=== PATIENT | male | born 1945 | race Hispanic/Latino ===

== ENCOUNTER 2018-01-06 09:32 | Emergency (ER) | payer OTHER ==
--- NOTE | 2018-01-06 10:34 | EDPHYS ---
Physician Documentation [facility] Name: Bryan Nance Age: 72 yrs Sex: Male : 1945 Arrival Date: 01/06/2018 Time: 09:38 Bed 12 Private MD: Raman Shetty T ED Physician Kevon Walker HPI: 01/06 10:30 This 72 yrs old Male presents to ER via Ambulatory with complaints of Ear rn Pain, Dizziness. 10:30 The patient presents with pain, that is chronic. The complaints affect the right ear rn and left ear. Onset: The symptoms/episode began/occurred 2 month(s) ago. Modifying factors: The symptoms are alleviated by nothing, the symptoms are aggravated by nothing. Severity of symptoms: At their worst the symptoms were moderate in the emergency department the symptoms are unchanged. The patient has experienced similar episodes in the past. Reports 2 months of bilateral ear pain, no drainage, given drops with some improvement 2months ago and now back, wears hearing aids, no trauma, no fever. . Historical: - Allergies: 09:45 No Known Allergies; lk1 - PMHx: 09:45 Atrial Fib; CHF; Gout; High Cholesterol; Hypertension; lk1 - PSHx: 09:45 CABG; Appendectomy; Hernia repair; lk1 - Immunization history:: Adult Immunizations up to date. - Social history:: Smoking status: Patient/guardian denies using tobacco. - Family history:: not pertinent. - Hospitalizations: : No recent hospitalization is reported. ROS: 10:30 Constitutional: Negative for fever, chills, and weight loss, Eyes: Negative for injury, rn pain, redness, and discharge, ENT: Negative for injury Neck: Negative for injury, pain, and swelling, Skin: Negative for injury, rash, and discoloration, Neuro: Negative for headache, weakness, numbness, tingling, and seizure. Exam: 10:30 Constitutional: This is a well developed, well nourished patient who is awake, alert, rn and in no acute distress. Head/Face: Normocephalic, atraumatic. Eyes: Pupils equal round and reactive to light, extra-ocular motions intact. Lids and lashes normal. Conjunctiva and sclera are non-icteric and not injected. Cornea within normal limits. Periorbital areas with no swelling, redness, or edema. ENT: Bilateral TM with mild external meatus swelling, no drainage, no evidence of perforation, + mild skin irritation with healed pustular lesions left external auditory canal. Vital Signs: 09:46 BP 125 / 82; Pulse 103; Resp 16; Temp 97.0(TE); Pulse Ox 97% on R/A; Weight 96.62 kg lk1 (R); Height 5 ft. 6 in. (167.64 cm) (R); Pain 0/10; 09:46 Body Mass Index 34.38 (96.62 kg, 167.64 cm) lk1 MDM: 10:11 Patient medically screened. rn 10:30 Differential diagnosis: otitis media, otitis externa, acute otalgia, cerumen impaction. rn Data reviewed: vital signs, nurses notes, and as a result, I will discharge patient. Counseling: I had a detailed discussion with the patient and/or guardian regarding: the historical points, exam findings, and any diagnostic results supporting the discharge/admit diagnosis, the need for outpatient follow up, to return to the emergency department if symptoms worsen or persist or if there are any questions or concerns that arise at home. Special discussion: I discussed with the patient/guardian in detail that at this point there is no indication for admission to the hospital. It is understood, however, that if the symptoms persist or worsen the patient needs to return immediately for re-evaluation. Based on the history and exam findings, there is no indication for further emergent testing or inpatient evaluation. I discussed with the patient/guardian the need to see the ENT specialist for further evaluation of the symptoms. Administered Medications: No medications were administered Disposition: 01/06/18 10:33 Discharged to Home. Impression: Otalgia, bilateral. - Condition is Stable. - Discharge Instructions: Earache. - Prescriptions for Augmentin 875- 125 mg Oral Tablet - take 1 tablet by ORAL route every 12 hours for 10 days; 20 tablet. Ciprodex 0.3- 0.1 % Otic Drops, Suspension - instill 4 drop by OTIC route every 12 hours for 7 days , for ears ONLY; 1 Container. - Medication Reconciliation Form, Thank You Letter, Antibiotic Education, Prescription Opioid Use form. - Follow up: Kayleigh Ely MD; When: As needed; Reason: Recheck today's complaints, Re-evaluation by your physician. - Problem is an ongoing problem. - Symptoms are unchanged. Signatures: Norma Reynolds, Kevon Bishop RN, MD MD rn Kluge, Leah, RN RN lk1
--- NOTE | 2018-01-06 10:34 | ER ---
Nurse's Notes [facility] Name: Bryan Nance Age: 72 yrs Sex: Male : 1945 Arrival Date: 01/06/2018 Time: 09:38 Bed 12 Private MD: Raman Shetty T Diagnosis: Otalgia, bilateral Presentation: 01/06 09:44 Presenting complaint: Patient states: "I am having itching in my ears for about a lk1 month. [facility] solvent that didn't work.". Transition of care: patient was not received from another setting of care. Onset of symptoms was December 05, 2017. Care prior to arrival: None. 09:44 Method Of Arrival: Ambulatory lk1 09:44 Acuity: CRICKET 4 lk1 09:46 Note Patient reports 3 round sore spots on his leg. lk1 Triage Assessment: 09:46 General: Appears in no apparent distress. Behavior is calm, cooperative, appropriate lk1 for age. Pain: Denies pain. EENT: Reports itching in ears. Historical: - Allergies: 09:45 No Known Allergies; lk1 - PMHx: 09:45 Atrial Fib; CHF; Gout; High Cholesterol; Hypertension; lk1 - PSHx: 09:45 CABG; Appendectomy; Hernia repair; lk1 - Immunization history:: Adult Immunizations up to date. - Social history:: Smoking status: Patient/guardian denies using tobacco. - Family history:: not pertinent. - Hospitalizations: : No recent hospitalization is reported. Screenin:23 Abuse screen: Denies threats or abuse. Denies injuries from another. Nutritional iw screening: No deficits noted. Tuberculosis screening: No symptoms or risk factors identified. Fall Risk None identified. Assessment: 10:22 General: Appears in no apparent distress. Behavior is calm, cooperative. Neuro: Level iw of Consciousness is awake, alert, obeys commands, Oriented to person, place, time, situation, Moves all extremities. Full function. Cardiovascular: Patient's skin is warm and dry. Respiratory: Respiratory effort is even, unlabored, Respiratory pattern is regular, symmetrical. Derm: Skin is normal. Musculoskeletal: Range of motion: intact in all extremities. Vital Signs: 09:46 BP 125 / 82; Pulse 103; Resp 16; Temp 97.0(TE); Pulse Ox 97% on R/A; Weight 96.62 kg lk1 (R); Height 5 ft. 6 in. (167.64 cm) (R); Pain 0/10; 09:46 Body Mass Index 34.38 (96.62 kg, 167.64 cm) lk1 ED Course: 09:38 Patient arrived in ED. as 09:38 Raman Shetty MD is Private Physician. as 09:45 Triage completed. lk1 09:48 Arm band placed on left wrist. lk1 10:11 Kevon Walker MD is Attending Physician. rn 10:22 Norma Reynolds, RN is Primary Nurse. iw 10:23 No provider procedures requiring assistance completed. Patient did not have IV access iw during this emergency room visit. 10:25 Patient has correct armband on for positive identification. iw 10:33 Kayleigh Ely MD is Referral Physician. rn Administered Medications: No medications were administered Outcome: 10:33 Discharge ordered by MD. rn 10:54 Discharged to home ambulatory. iw 10:54 Condition: good 10:54 Discharge instructions given to patient, Instructed on discharge instructions, follow up and referral plans. medication usage, Demonstrated understanding of instructions, follow-up care, medications, Prescriptions given X 2. 10:55 Patient left the ED. iw Signatures: Hortencia Kearney as Norma Reynolds, RN RN iw Kevon Walker MD MD rn Kluge, Leah, RN RN lk1
[2018-01-06 11:00] VITALS: BP 125/82; TEMP 97; O2SAT 97
== END 2018-01-06 10:55 | disposition home or self-care (01) ==
LOC: ER 09:32
DX: H92.03 Otalgia, bilateral (principal); I10 Essential (primary) hypertension; Z95.1 Presence of aortocoronary bypass graft
CPT/HCPCS: 99282

== ENCOUNTER 2020-10-19 07:57 | Day surgery (SDC) | payer OTHER ==
[2020-10-13 10:02] LABS: Absolute Lymphocytes (CBC) 1.8 K/uL (0.7-4.9); Basophils % 0.8 % (0-1.3); Lymphocytes % 28.8 % (15.3-44.8); MPV 9.3 fL (7.6-11.3); RBC Red Blood Cell Count 4.89 M/uL (4.33-5.43)
[2020-10-13 10:12] LABS: Potassium 4.1 mmol/L (3.5-5.1)
--- NOTE | 2020-10-13 13:16 | RAD REPORT ---
EXAM DESCRIPTION: RAD - Chest Pa And Lat (2 Views) - 10/13/2020 12:59 pm CLINICAL HISTORY: pre op Chest pain. COMPARISON: Chest Pa And Lat (2 Views) dated 07/14/2017; Chest Single View dated 07/09/2017; Chest P a And Lat (2 Views) dated 06/09/2017; Chest Single View dated 09/25/2016 FINDINGS: The lungs are clear. The heart is moderately enlarged with changes of a prior CABG noted. No displaced fractures.
[2020-10-19] MEDS ORDERED: NA CHLORIDE 0.9% 1,000 ML ONE (08:17)
[2020-10-19] MEDS ORDERED: CEFAZOLIN/SWI 1gm 1 GM/10 ML SYR ONE (08:17)
[2020-10-19 08:24] LABS: Protime INR 1.1
--- OUTSIDE RECORDS SUMMARY | 2020-10-19 08:32 | XMS REPORT | Clinical Summary ---
:1945 Author Organization [facility] Address [address] [place] [address] Care Team Providers Name Role Phone Pcp, Neva MD Primary Care Provider Unavailable Allergies No Known Allergies Medications Medication Sig Dispensed Refills Start Date End Date Status potassium Take 20 mEq 0 Active chloride by mouth 2 (KLOR-CON) 20 mEq (two) times packet daily. allopurinoL Take 300 mg 0 Active (ZYLOPRIM) 300 MG by mouth tablet daily. apixaban Take 5 mg by 0 Active (Eliquis) 5 mg mouth 2 (two) Tab tablet times daily. metoprolol Take 50 mg by 0 Activ e succinate mouth 2 (two) (TOPROL-XL) 50 MG times daily. 24 hr tablet furosemide Take 40 mg by 0 Activ e (LASIX) 40 MG mouth 2 (two) tablet times daily. simvastatin Take 10 mg by 0 Acti ve (ZOCOR) 10 MG mouth tablet nightly. aspirin 81 MG EC Take 81 mg by 0 Active tablet mouth daily. lisinopriL Take 2 30 tablet 0 10/06/2020 Active (PRINIVIL,ZESTRIL tablets (40 ) 20 MG tablet mg total) by mouth daily. lisinopriL Take 20 mg by 0 Disco ntinued (PRINIVIL,ZESTRIL mouth daily. 1 (Reorder) ) 20 MG tablet Active Problems Problem Noted Date Abnormal nuclear stress test 10/06/2020 Encounters Date Type Specialty Care Team Description 10/06/2020 Surgery Gavin Franklin CATH & CORONARY ANGIOS MD SEEMA 10/06/2020 Hospital Encounter Gavin Franklin III, MD 10/03/2020 Office Visit Cardiology Gavin Franklin-op MD Yolie vasquez III, Thien N, RN 10/03/2020 Travel 09/12/2020 Office Visit Cardiology Gavin Franklin Pre-op MD Jeovanny vasquez III, Taiwo, RN 09/12/2020 Travel after 10/19/2019 Family History Medical History Relation Name Comments Diabetes Brother Hypertension Mother Diabetes Son Relation Name Status Comments Brother Mother Son Social History Tobacco Use Types Packs/Day Years Used Date Never Smoker Smokeless Tobacco: Never Used Alcohol Use Drinks/Week oz/Week Comments Not Currently Sex Assigned at Date Recorded Not on file Last Filed Vital Signs Vital Sign Reading Time Taken Comments Blood Pressure 111/55 10/06/2020 10:15 AM COMPONENT DESIGN ENGINEER Pulse 71 10/06/2020 10:15 AM COMPONENT DESIGN ENGINEER Temperature 36.8 C (98.2 F) 10/06/2020 5:48 AM COMPONENT DESIGN ENGINEER Respiratory Rate 18 10/06/2020 10:15 AM COMPONENT DESIGN ENGINEER Oxygen Saturation 99% 10/06/2020 10:15 AM COMPONENT DESIGN ENGINEER Inhaled Oxygen Concentration - - Weight 97 kg (213 lb 14.4 oz) 10/06/2020 5:48 AM COMPONENT DESIGN ENGINEER Height 167.6 cm (5' 6") 10/06/2020 5:48 AM COMPONENT DESIGN ENGINEER Body Mass Index 34.52 10/06/2020 5:48 AM COMPONENT DESIGN ENGINEER Plan of Treatment Health Maintenance Due Date Last Done Comments COLON CANCER SCREENING COLONOSCOPY 1945 PNEUMOCOCCAL 65+ YRS (1 of 1 - [id number]) 2010 MEDICARE ANNUAL WELLNESS (YEAR 2 or FIRST YEAR if no 09/24/2014 IPPE) INFLUENZA VACCINE (#1) 2020 DEPRESSION SCREENING (12+) Completed 10/03/2020 Procedures Procedure Name Priority Date/Time Associated Diagnosis Comme nts L CATH & CORONARY 10/06/2020 7:02 AM Abnormal echocar diogram ANGIOS COMP[employer]ENT DESIGN ENGINEER Case Notes (1)CASE 6TOP REPORT OF PROCEDURE - 10/06/2020 Result s for this ENDOSCOPY SCAN procedure are in the results section . CARDIAC CATH REPORT - SCAN 10/06/2020 R esults for this procedure are i n the results section . PROTHROMBIN TIME/INR Routine 10/03/2020 7:45 AM COMPONENT DESIGN ENGINEER Results for this procedure are i n the results section . SARS-COV2/RT-PCR ([facility] & STAT 10/03/2020 7:31 AM COMPONENT DESIGN ENGINEER Results for this REF LABS) procedure are i n the results section . CBC W/PLT COUNT & AUTO CHARISSE 09/12/2020 7:57 AM COMPONENT DESIGN ENGINEER Results for this DIFFERENTIAL procedure are i n the results section . CBC W/PLT COUNT & AUTO CHARISSE 09/12/2020 7:57 AM COMPONENT DESIGN ENGINEER Results for this DIFFERENTIAL procedure are i n the results section . BASIC METABOLIC PANEL (7) CHARISSE 09/12/2020 7:57 AM COMPONENT DESIGN ENGINEER Results for this procedure are i n the results section . SARS-COV2/RT-PCR ([facility] & STAT 09/12/2020 7:44 AM COMPONENT DESIGN ENGINEER Results for this REF LABS) procedure are i n the results section . after 10/19/2019 Results EKG-SCANNED (10/06/2020) Narrative Performed At This result has an attachment that is no t available. Ordered by an unspecified provider. CARDIAC CATH REPORT - SCAN (10/06/2020) Narrative Performed At This result has an attachment that is no t available. Ordered by an unspecified provider. Prothrombin time/INR (10/03/2020 7:45 AM COMPONENT DESIGN ENGINEER) Pathologist Sig nature Protime 17.1 (H) 11.9 - 14.2 seconds [facility] INR 1.45 <=5.90 [facility] Specimen Blood Narrative Performed At Effective 02/18/2019: PT Reference Range [facility] Change New: 11.9-14.2 Previous: 11.7-14.7 RECOMMENDED COUMADIN/WARFARIN INR THERAPY RANGES STANDARD DOSE: 2.0-3.0 Includes: PROPHYLAXIS for venous thrombosis, systemic embolization; TREATMENT for venous thrombosis and/or pulmonary embolus. HIGH RISK: Target INR is 2.5-3.5 for patients wiht mechanical heart valves. Performing Organization Address City/State/Zipcode Phone Number [facility] [address] [place] [address] CENTER SARS-CoV2/RT-PCR (Asymptomatic ONLY) (10/03/2020 7:31 AM COMPONENT DESIGN ENGINEER)Only the most recent of2 resultswithin the time period is included. SARS-COV2/RT-PCR Negative Not Detected, JOCELINE VERGARA Negative, See [facility] external report CENTER for linked test SARS-COV-2 [facility] MARLEN VERGARA PERFORMING LAB [facility] Specimen Other - Nasopharyngeal wall structure (b dayana structure) Narrative Performed At Negative result for this test determines that JOCELINE GODWINKayden [facility] SARS-CoV-2 RNA was not present in the specimen above the Limit of Detection (LOD). However, Negative results do not preclude SARS-CoV-2 infection and should not be used as the sole basis for treatment or patient management decisions. Negative results must be combined with clinical observations, patient history, and epidemiological information. A false negative result may occur if a specimen is improperly collected, transported or handled. A false negative result should be considered if patient's recent exposures or clinical presentation indicate that COVID-19 (SARS-CoV-2) is likely and diagnostic tests for other causes of illness are negative. Re-testing should be considered in cases of suspected false negatives. The limit of detection for this assay is 800 copies/mL. This SARS CoV-2 test is a real-time RT-PCR test intended for the qualitative detection of nucleic acid from SARS-CoV-2 in a nasopharyngeal swab specimen collected from individuals suspected of COVID-19 by their healthcare provider. This test has not been Food and Drug Administration (FDA) cleared or approved. This is a modified version of an approved Emergency Use Authorization (EUA) and is in the process of review by the FDA. Once authorized by the FDA, the issued EUA will be effective until the declaration that circumstances exist justifying the authorization of the emergency use of in vitro diagnostic tests for detection and/or diagnosis of COVID-19 is terminated under Section 564(b)(2) of the Act or the EUA is revoked under Section 564(g) of the Act. Fact Sheet for Healthcare Providers: https://www.Instapagar.Apricot Trees/sites/default/files/pro duct/documents/Fact_Sheet_HC_Providers_Lyra_SA RS-CoV-2.pdf Fact Sheet for Healthcare Patients: https://www.Instapagar.Apricot Trees/sites/default/files/pro duct/documents/Fact_Sheet_Patients_Lyra_SARS-C oV-2.pdf Performing Laboratory: [facility] [address] [address] Performing Organization Address City/State/Zipcode Phone Number [facility] [address] [place] [address] CENTER CBC with platelet count + automated diff (09/12/2020 7:57 AM COMPONENT DESIGN ENGINEER) Pathologist Sig nature WBC 6.1 3.5 - 10.5 [facility] RBC 4.69 4.63 - 6.08 [facility] M/[facility] Hemoglobin 14.9 13.7 - 17.5 [facility]/DL [facility] Hematocrit 44.9 40.1 - 51.0 % [facility] MCV 95.7 (H) 79.0 - 92.2 fL [facility] MCH 31.8 25.7 - 32.2 pg [facility] MCHC 33.2 32.3 - 36.5 [facility] RDW 14.1 11.6 - 14.4 % [facility] Platelets 160 150 - 450 K/CU [facility] MPV 10.6 9.4 - 12.4 fL [facility] nRBC 0 0 - 0 /100 WBC [facility] % Neutros 58 % [facility] % Lymphs 30 % [facility] % Monos 7 % [facility] % Eos 3 % [facility] % Baso 1 % [facility] # Neutros 3.57 1.78 - 5.38 [facility] # Lymphs 1.84 1.32 - 3.57 [facility] # Monos 0.45 0.30 - 0.82 [facility] # Eos 0.20 0.04 - 0.54 [facility]/L [facility] # Baso 0.04 0.01 - 0.08 [facility] Immature 0 0 - 1 % [facility] Granulocytes-Relative [facility] Specimen Blood Performing Organization Address City/State/Zipcode Phone Number [facility] [address] [place] [address] [place] Basic Metabolic Panel (09/12/2020 7:57 AM COMPONENT DESIGN ENGINEER) Sodium 137 136 - 145 meq/L [facility] Potassium 4.1 3.5 - 5.1 meq/L [facility] Chloride 101 98 - 107 meq/L [facility] CO2 25 22 - 29 meq/L [facility] BUN 22 (H) 7 - 21 mg/dL [facility] Creatinine 0.92 0.57 - 1.25 [facility] mg/dL [facility] Glucose 133 (H) 70 - 105 mg/dL [facility] Calcium 8.7 8.4 - 10.2 [facility] mg/dL [facility] EGFR 80Comment: ESTIMATED mL/min/1.73 sq [facility] GFR IS NOT m [facility] ACCURATE CENTER CREATININE CLEARANCE IN PREDICTING GLOMERULAR FILTRATION RATE. ESTIMATED GFR IS NOT APPLICABLE FOR DIALYSIS PATIENTS. Specimen Blood Narrative Performed At [employer] ID - [place] Performing Organization Address City/State/Zipcode Phone Number [facility] [address] [place] [address] CENTER after 10/19/2019 Insurance Payer Benefit Plan / Subscriber ID Effective Dates Phone Addre ss Type Group AET[employer] - A[employer]NA MEDICARE [id number]-Mateusz [phone] MEDICARE MGD HMO POS PPO t [id number] [place] [id number] Advance Directives For more information, please contact: [phone] Code Status Date Activated Date Inactivated Comments Full Code 10/06/2020 5:59 AM 10/06/2020 12:40 PM This code status was determined by: Patient
--- OUTSIDE RECORDS SUMMARY | 2020-10-19 08:32 | XMS REPORT | Continuity of Care Document ---
:1945 Author Organization [facility] t Address [address] [place] [address] [address]. [address] [place] [address] Care Team Providers Name Role Phone Pcp MD, Neva Primary Care Physician Unavailable Gavin Franklin MD Attending Clinician Yolie MONTES, N Attending Clinician Unavailable KIM FRANKLIN Attending Clinician Unavailable Jeovanny MONTES Attending Clinician Unavailable Benjy Sheppard Attending Clinician Payers Payer Name Policy Type Policy Number Effective Date Expiration Date S ian AETNA - MEDICARE [id number] 2013 [facility] MGD CAREAETNA 00:00:00 - Medical MEDICARE HMO POS Center [id number] [address], [place] [address] Problems Condition Condition Condition Status Onset Resolution Last Treating Co mments Source Name Details Category Date Date Treatment Clinician Date Abnormal Abnormal Disease Active [facility] nuclear 1-14 ProPerforma - stress stress 00:00: Medical test test 00 Center Carpal Problem Active 2020-07-22 Memor ia tunnel 01:18:22 l syndrome Carpal Prasanna n (disorder) tunnel syndrome (disorder) Active Problem 07/22/2020 [facility] Allergies, Adverse Reactions, Alerts This patient has no known allergies or adverse reactions. Family History Family Member Diagnosis Comments Start Date Stop Date Source Natural brother Diabetes [place] [facility] Natural mother Hypertension [facility] Natural son Diabetes [facility] Social History Social Habit Start Date Stop Date Quantity Comments Source Sex Assigned At JOCELINE [place] [facility] Tobacco use and 2020-10-10 2020-10-[address] [facility] St Tyra duenass - exposure 00:00:00 00:00:00 [facility] Alcohol intake 2020-10-10 2020-10-10 Ex-drinker JOCELINE [place] [facility] - 00:00:00 00:00:00 (finding) Medical Center Social History 2020-07-20 2020-07-20 [facility] 04:59:59 04:59:59 Smoking Status Start Date Stop Date Source Never smoker [facility] Medications Ordered Filled Start Stop Current Ordering Indication Dosage Frequency Signature Comments Components Source Medication Medication Date Date Medication? Clinician (SIG) Name Name potassium Yes 20meq Q.5D Take [address] chloride 1-14 mEq by [facility] - (KLOR-CON) 10:40: mouth 2 Medi richard 20 mEq 26 (two) Center packet times daily. allopurinoL Yes 300mg QD Take [address] (ZYLOPRIM) 1-14 mg by [facility] - 300 MG 10:40: mouth Medical tablet 26 daily. Center apixaban Yes 5mg Q.5D Take [address] (Eliquis) 5 1-14 by mouth 2 Tyra kes - mg Tab 10:40: (two) Medical tablet 26 times Center daily. metoprolol Yes 50mg Q.5D Take [address] succinate 1-14 by mouth 2 Luke s - (TOPROL-XL) 10:40: (two) Medic al 50 MG 24 hr 26 times Center tablet daily. furosemide Yes 40mg Q.5D Take [address] (LASIX) 40 1-14 by mouth 2 Jesus es - MG tablet 10:40: (two) Medical 26 times Center daily. simvastatin Yes 10mg QD Take [address] (ZOCOR) 10 1-14 by mouth Lukes - MG tablet 10:40: nightly. Medi richard 26 Center aspirin 81 Yes 81mg QD Take [address] MG EC 1-14 by mouth [facility] - tablet 10:40: daily. Medical 26 Center lisinopriL 2020- No 20mg QD Take [address] (PRINIVIL,Z 1-14 10-06 by mouth Jesus es - ESTRIL) 20 08:46: 00:00 daily. Medi richard MG tablet 01 :00 Rougon lisinopriL Yes 40mg QD Take 2 [facility] (PRINIVIL,Z 1-14 tablets [facility]ukes - ESTRIL) 20 00:00: (40 mg Medic al MG tablet 00 total) by Cente r mouth daily. Vital Signs Vital Name Observation Time Observation Value Comments Source Systolic blood 2020-10-06 10:15:00 111 mm[Hg] [facility] Diastolic blood 2020-10-06 10:15:00 55 mm[Hg] [facility] S t [facility] Heart rate 2020-10-06 10:15:00 71 /min [facility] Respiratory rate 2020-10-06 10:15:00 18 /min [facility] Oxygen saturation in 2020-10-06 10:15:00 99 /min [facility] - Arterial blood by Medical Ce nter Pulse oximetry Body temperature 2020-10-06 05:48:00 36.78 Vy [facility] Body height 2020-10-06 05:48:00 167.6 cm [facility] Body weight 2020-10-06 05:48:00 97.024 kg [facility] BMI 2020-10-06 05:48:00 34.52 kg/m2 [facility] Procedures Procedure Date / Time Performed Performing Clinician Nataly e L CATH & CORONARY ANGIOS 2020-10-06 07:02:00 Gavin Franklin [facility] CARDIAC CATH REPORT - 2020-10-06 00:00:00 Provider, Default [facility] SCAN Scanning [facility] REPORT OF PROCEDURE - 2020-10-06 00:00:00 Provider, Default [facility] ENDOSCOPY SCAN [facility] PROTHROMBIN TIME/INR 2020-10-03 07:45:00 Gavin Franklin [facility] SARS-COV2/RT-PCR ([facility] & 2020-10-03 07:31:[address] [facility] Medical Center BASIC METABOLIC PANEL 2020-09-12 07:57:[address] [facility] - (7) [facility] CBC W/PLT COUNT & AUTO 2020-09-12 07:57:[address] [facility] DIFFERENTIAL [facility] SARS-COV2/RT-PCR ([facility] & 2020-09-12 07:44:[address] [facility] Plan of Care Planned Activity Planned Date Details Comments Source Future Scheduled 2020-05-24 INFLUENZA VACCINE (#1) [facility] 00:00:00 [code = INFLUENZA Medical Ce nter VACCINE (#1)] Future Scheduled 2014-09-[address] [facility] Test 00:00:00 WELLNESS (YEAR 2 or Medical Center FIRST YEAR if no IPPE) [code = MEDICARE ANNUAL WELLNESS (YEAR 2 or FIRST YEAR if no IPPE)] Future Scheduled 2010 PNEUMOCOCCAL 65+ YRS [facility] - Test 00:00:00 (1 of 1 - Medical Center [id number] PCV13) [code = PNEUMOCOCCAL 65+ YRS (1 of 1 - [id number] PCV13)] Future Scheduled [address] [facility] - Test 00:00:00 malignant neoplasm of Medica l Center colon (procedure) [code = 264211686] Encounters Start End Encounter Admission Attending Care Care Encounter Source Date/Time Date/Time Type Type Clinicians Facility Department ID 2020-07-19 2020-07-19 Outpatient JEEVAN Sheppard [id number] 08:15:00 23:59:59 Joe Kiki Burleson 2020-07-19 2020-07-19 Outpatient JEEVAN Sheppard [id number] 20:15:00 20:15:00 Joe 03 Benjy Results Test Description Test Time Test Comments Results Result Sourc e Comments CARDIAC CATH 2020-10-17 Ordered by an JOCELINE Finnegan kes REPORT - SCAN 14:53:49 unspecified - Medical provider. Center EKG-SCANNED 2020-10-[address] [facility] 00:00:00 unspecified - Medical provider. Center SARS-CoV2/RT-PCR (Asymptomatic ONLY) 2020-10-03 12:47:00 Test Item Value Reference Range Interpretation Comme nts SARS-COV2/RT-PCR (test code = Negative Not Detected, 39625-1) Negative, See external report for linked test SARS-COV-[address] [facility] MARLEN (test code = 67414-9) HENRIETTA (test code = HENRIETTA) Negative result for this test determines that SARS-CoV-2 RNA was not present in the [...] of the Act. Fact Sheet for Healthcare Providers:https://www.[employer]/sites/default/files/produ ct/documents/Fact_Sheet_HC_Pr xtlglsz_Zhhx_CZXZ-NeY-2.pdf Fact Sheet for Healthcare Patients:https://www.[employer]Escapio om/sites/default/files/produc t/documents/Fact_Sheet_Patiirving op_Susf_DVUY-YcW-3.pdf Performing Laboratory:[facility] [place] [address] [facility] ([facility] REF [facility])2020-10-03 12:47:00 Test Item Value Reference Range Interpretation Comments SARS-COV2/RT-PCR (test Negative Not Detected, Negative, code = 5250797) See external report for linked test SARS-COV-[address] [facility] MARLEN (test code = 5668492) Negative result for this test determines that SARS-CoV-2 RNA was not present in the specimen above the Limit of Detection (LOD). However, Negative results do not preclude SARS-CoV-2 infection and should not be used as the sole basis for treatment or patient management decisions. Negative results mustbe combined with clinical observations, patient history, and epidemiological information. A false negative result may occur if a specimen is improperly collected, transported or handled. A false negative result should be considered if patient's recent exposures or clinical presentation indicate that COVID-19 (SARS-CoV-2) is likely and diagnostic tests for other causes of illness are negative. Re-testing should be considered in cases of suspected false negatives.The limit of detection for this assay is 800 copies/mL.This SARS CoV-2 test is a real-time RT-PCR test intended for the qualitative detection of nucleic acid from SARS-CoV-2 in a nasopharyngeal swab specimen collected from individuals susp ected of COVID-19 by their healthcare provider.This test has not been Food and Drug [...] is revoked under Section 564(g) of the Act.Fact Sheet for Healthcare Providers:https://www.[employer]com/sites/default/files/product/documents/Fact_Shee d_AE_Arcgwqtbs_Qadx_IOVY-OmA-3.pdfFact Sheet for Healthcare Patients:https://www.[employer]com/sites/default/files/product/ documents/Zzkw_Awoyj_Jelqiecl_Igqj_VTFI-LoV-4.pdfPerforming Laboratory:[facility], [place] [address]Aeisvrmkxjy time/INR 2020-10-03 08:11:00 Test Item Value Reference Range Interpretation Comments Protime (test code = 17.1 11.9- 14.2 H 5902-2) seconds INR (test code = 1.45 <=5.90 6301-6) HENRIETTA (test code = HENRIETTA) Effective 02/18/2019: PT Reference Range ChangeNew: 11.9-14.2 Previous: 11.7-14.7 RECOMMENDED COUMADIN/WARFARIN INR THERAPY RANGESSTANDARD DOSE: 2.0-3.0 Includes: PROPHYLAXIS for venous thrombosis, systemic embolization; TREATMENT for venous thrombosis and/or pulmonary embolus.HIGH RISK: Target INR is 2.5-3.5 for patients wiht mechanical heart valves. Lab Interpretation Abnormal (test code = 70032-4) [facility][id number] 08:11:00 Test Item Value Reference Range Interpretation Comments PROTIME (BEAKER) (test code = 17.1 seconds 11.9-14.2 H 759) INR (BEAKER) (test code = 370) 1.45 <=5.90 Effective 02/18/2019: PT Reference Range ChangeNew: 11.9-14.2 Previous: 11.7- 14.7RECOMMENDED COUMADIN/WARFARIN INR THERAPY RANGESSTANDARD DOSE: 2.0-3.0 Includes: PROPHYLAXIS for venous thrombosis, systemic embolization; TREATMENT for venous thrombosis and/or pulmonary embolus.HIGH RISK: Target INR is2.5-3.5 for patients wiht mechanical heart valves.SARS-COV2/RT-PCR ([facility] & REF LABS) 2020-09-12 11:24:00 Test Item Value Reference Range Interpretation Comments SARS-COV2/RT-PCR (test Negative Not Detected, Negative, code = 3206285) See external report for linked test SARS-COV-[address] [facility] MARLEN (test code = 5905744) Negative result for this test determines that SARS-CoV-2 RNA was not present in the specimen above the Limit of Detection (LOD). However, Negative results do not preclude SARS-CoV-2 infection and should not be used as the sole basis for treatment or patient management decisions. Negative results mustbe combined with clinical observations, patient history, and epidemiological information. A false negative result may occur if a specimen is improperly collected, transported or handled. A false negative result should be considered if patient's recent exposures or clinical presentation indicate that COVID-19 (SARS-CoV-2) is likely and diagnostic tests for other causes of illness are negative. Re-testing should be considered in cases of suspected false negatives.The limit of detection for this assay is 800 copies/mL.This SARS CoV-2 test is a real-time RT-PCR test intended for the qualitative detection of nucleic acid from SARS-CoV-2 in a nasopharyngeal swab specimen collected from individuals susp ected of COVID-19 by their healthcare provider.This test has not been Food and Drug [...] is revoked under Section 564(g) of the Act.Fact Sheet for Healthcare Providers:https://www.[employer]GameWith/sites/default/files/product/documents/Fact_Shee q_NW_Awpqsxydi_Apbq_MUPR-NpF-9.pdfFact Sheet for Healthcare Patients:https://www.[employer]GameWith/sites/default/files/product/ documents/Dpsd_Vndxx_Ekileqyz_Qkbk_ZCZL-TkW-1.pdfPerforming Laboratory:[facility], [place] [address] Metabolic Panel 2020-09-12 08:22:00 Test Item Value Reference Range Interpretation Comments Sodium (test code = 137 meq/L 806-333 5290-2) Potassium (test code = 4.1 meq/L 3.5-5.1 2823-3) Chloride (test code = 101 meq/L 98-107 2075-0) CO2 (test code = 25 meq/L 22-29 2028-9) BUN (test code = 22 mg/dL 7-21 H 3094-0) Creatinine (test code 0.92 mg/dL 0.57-1.25 = 2160-0) Glucose (test code = 133 mg/dL 70-105 H 2345-7) Calcium (test code = 8.7 mg/dL 8.4-10.2 12925-5) EGFR (test code = 80 mL/min/1.73 [place] [address]-5) NOT ACCURATE CREATININE CLEARANCE IN PREDICTING GLOMERULAR FILTRATION RATE . ESTIMATED GFR I S NOT APPLICABLE FOR DIALYSIS PATIENTS. HENRIETTA (test code = HENRIETTA) Bleach Boiler Filler ID - MONICA F Lab Interpretation Abnormal (test code = 13748-2) [facility] METABOLIC [id number] 08:22:00 Test Item Value Reference Range Interpretation Comments SODIUM (BEAKER) 137 meq/L 136-145 (test code = 381) POTASSIUM (BEAKER) 4.1 meq/L 3.5-5.1 (test code = 379) CHLORIDE (BEAKER) 101 meq/L 98-107 (test code = 382) CO2 (BEAKER) (test 25 meq/L 22-29 code = 355) BLOOD UREA NITROGEN 22 mg/dL 7-21 H (BEAKER) (test code = 354) CREATININE (BEAKER) 0.92 mg/dL 0.57-1.25 (test code = 358) GLUCOSE RANDOM 133 mg/dL 70-105 H (BEAKER) (test code = 652) CALCIUM (BEAKER) 8.7 mg/dL 8.4-10.2 (test code = 697) EGFR (BEAKER) (test 80 mL/min/1.73 ESTIMA AUTUMN GFR IS code = 1092) sq m NOT ACCURATE CREATININE CLEARANCE IN PREDICTING GLOMERULAR FILTRATION RATE . ESTIMATED GFR I S NOT APPLICABLE FOR DIALYSIS PATIEN TS. Bleach Boiler Filler ID Wade ANDERSON FCBC with platelet count + automated [id number] 08:05:00 Test Item Value Reference Range Interpretation Comments WBC (test code = 6690-2) 6.1 3.5- 10.5 K/L RBC (test code = 789-8) 4.69 4.63- 6.08 M/L MCHC (test code = 786-4) 33.2 32.3- 36.5 GM/DL Hematocrit (test code = 4544-3) 44.9 % 40.1-51 MCV (test code = 787-2) 95.7 fL 79-92.2 H MCH (test code = 785-6) 31.8 pg 25.7-32.2 RDW (test code = 788-0) 14.1 % 11.6-14.4 Platelets (test code = 777-3) 160 150- 450 K/CU MM MPV (test code = 85964-0) 10.6 fL 9.4-12.4 nRBC (test code = 413) 0 0- 0 /100 WBC % Neutros (test code = 429) 58 % % Lymphs (test code = 430) 30 % % Monos (test code = 431) 7 % % Eos (test code = 432) 3 % % Baso (test code = 437) 1 % # Neutros (test code = 670) 3.57 1.78- 5.38 K/L # Lymphs (test code = 414) 1.84 1.32- 3.57 K/L # Monos (test code = 415) 0.45 0.30- 0.82 K/L # Eos (test code = 416) 0.20 0.04- 0.54 K/L # Baso (test code = 417) 0.04 0.01- 0.08 K/L Immature Granulocytes-Relative 0 % 0-1 (test code = 2801) Lab Interpretation (test code = Abnormal 28464-9) [facility] W/PLT COUNT & AUTO [id number] 08:05:00 Test Item Value Reference Range Interpretation Comments WHITE BLOOD CELL COUNT (BEAKER) 6.1 K/ L 3.5-10.5 (test code = 775) RED BLOOD CELL COUNT (BEAKER) 4.69 M/ L 4.63-6.08 (test code = 761) HEMOGLOBIN (BEAKER) (test code = 14.9 GM/DL 13.7-17.5 410) HEMATOCRIT (BEAKER) (test code = 44.9 % 40.1-51.0 411) MEAN CORPUSCULAR VOLUME (BEAKER) 95.7 fL 79.0-92.2 H (test code = 753) MEAN CORPUSCULAR HEMOGLOBIN 31.8 pg 25.7-32.2 (BEAKER) (test code = 751) MEAN CORPUSCULAR HEMOGLOBIN CONC 33.2 GM/DL 32.3-36.5 (BEAKER) (test code = 752) RED CELL DISTRIBUTION WIDTH 14.1 % 11.6-14.4 (BEAKER) (test code = 412) PLATELET COUNT (BEAKER) (test 160 K/CU MM 150-450 code = 756) MEAN PLATELET VOLUME (BEAKER) 10.6 fL 9.4-12.4 (test code = 754) NUCLEATED RED BLOOD CELLS 0 /100 WBC 0-0 (BEAKER) (test code = 413) NEUTROPHILS RELATIVE PERCENT 58 % (BEAKER) (test code = 429) LYMPHOCYTES RELATIVE PERCENT 30 % (BEAKER) (test code = 430) MONOCYTES RELATIVE PERCENT 7 % (BEAKER) (test code = 431) EOSINOPHILS RELATIVE PERCENT 3 % (BEAKER) (test code = 432) BASOPHILS RELATIVE PERCENT 1 % (BEAKER) (test code = 437) NEUTROPHILS ABSOLUTE COUNT 3.57 K/ L 1.78-5.38 (BEAKER) (test code = 670) LYMPHOCYTES ABSOLUTE COUNT 1.84 K/ L 1.32-3.57 (BEAKER) (test code = 414) MONOCYTES ABSOLUTE COUNT (BEAKER) 0.45 K/ L 0.30-0.82 (test code = 415) EOSINOPHILS ABSOLUTE COUNT 0.20 K/ L 0.04-0.54 (BEAKER) (test code = 416) BASOPHILS ABSOLUTE COUNT (BEAKER) 0.04 K/ L 0.01-0.08 (test code = 417) IMMATURE GRANULOCYTES-RELATIVE 0 % 0-1 PERCENT (BEAKER) (test code = 1653)
--- OUTSIDE RECORDS SUMMARY | 2020-10-19 08:32 | XMS REPORT | Continuity of Care Document ---
:1945 Author Organization [email or web address] Care Team Providers Name Role Phone [email or web address] Unavailable Un available Problems Problem Status Onset Classification Date Comments Sourc e Date Reported Carpal tunnel Active Problem 07/22/2020 Misch er syndrome Neuro (disorder) Medications No Data Provided for This Section Allergies, Adverse Reactions, Alerts No Known Medication Allergies Immunizations No Data Provided for This Section Results No Data Provided for This Section Pathology Reports No Data Provided for This Section Diagnostic Reports No Data Provided for This Section Consultation Notes No Data Provided for This Section Discharge Summaries No Data Provided for This Section History and Physicals No Data Provided for This Section Vital Signs No Data Provided for This Section Encounters Location Location Encounter Encounter Reason Attending ADM UT Stat Source Details Type Number For Provider Date Date Visit Outpatient [id number] Joe 07/19 Active [facility] [id number] Henry 07/19 07/20 [facility] [id number] Henry [facility]/20 [facility] Procedures No Data Provided for This Section Assessment and Plan No Data Provided for This Section Plan of Care No Data Provided for This Section Social History Social History Date Source No data available for this 07/20[facility] Family History No Data Provided for This Section Advance Directives No Data Provided for This Section Functional Status No Data Provided for This Section
--- OUTSIDE RECORDS SUMMARY | 2020-10-19 08:32 | XMS REPORT | Summary of Care ---
:1945 Author Organization [facility] [place] Address [address] [place] [address]- Encounter HQ Encntr_alias(FIN) [id number] Date(s): 07/19/20 - 07/19/20 [facility] [place] [address] [place] [address]- [phone] Attending Physician: Joe Sheppard MD Referring Physician: Henry Dodd MD Vital Signs No data available for this section Problem List Condition Effective Dates Status Health Status Informant CTS (carpal tunnel Active syndrome)(Confirmed) Allergies, Adverse Reactions, Alerts No data available for this section Medications No data available for this section Results No data available for this section Immunizations No data available for this section Procedures No data available for this section Social History No data available for this section Assessment and Plan No data available for this section
--- OUTSIDE RECORDS SUMMARY | 2020-10-19 08:32 | XMS REPORT | Summary of Care ---
:1945 Author Organization [facility] Address [address] [place] [address]- Encounter HQ Encntr_alias(FIN) [id number] Date(s): 07/19/20 - 07/19/20 [facility] [address] [place] [address]- [phone] Discharge Disposition: Home or Self Care Attending Physician: Joe Sheppard MD Referring Physician: [...]
[2020-10-19] MEDS ORDERED: FENTANYL CITR 100 MCG/2 ML ONE (08:52)
[2020-10-19] MEDS ORDERED: propofoL 200 MG/20 ML VIAL IV ONE (08:52)
[2020-10-19] MEDS ORDERED: LIDOCAINE 2% MPF 5 ML VIAL ONE (08:53)
[2020-10-19] MEDS ORDERED: MIDAZOLAM HCL 2 MG/2 ML INJ ONE (08:53)
[2020-10-19] MEDS ORDERED: KETOROLAC 30 MG/ML INJ ONE (08:53)
[2020-10-19] MEDS ORDERED: BUPIVACAINE 0.25% PF 10 ML VIAL ONE (09:25)
[2020-10-19] MEDS ORDERED: EPHEDRINE SULF 50 MG/ML VIAL ONE (09:45)
--- NOTE | 2020-10-19 10:07 | P.BOP ---
Preoperative diagnosis: left carpal tunnel syndrome Postoperative diagnosis: same Primary procedure: left open carpal tunnel release Supervisor Dry Paste: NONE,NONE Estimated blood loss: 3 cc Specimen: none Findings: see dictation Anesthesia: General Complications: None Implants: none Fluids & blood products: per anesthesia record; TT: 18 mins @ 250 mmHg Transferred to: Recovery Room Condition: Good
[2020-10-19] MEDS ORDERED: CODEINE 30MG/APAP 300MG TAB ONE (11:36)
--- NOTE | 2020-10-19 11:47 | OP ---
Date of Procedure: 10/19/2020 Surgeon: Henry Dodd MD Preoperative Diagnosis: Left carpal tunnel syndrome. Postoperative Diagnosis: Left carpal tunnel syndrome. Procedure Performed: Left open carpal tunnel release. Anesthesia: General LMA. Fluids: Per anesthesia record. Estimated Blood Loss: 3 cc. Complications: None. Tourniquet Time: 18 minutes at 250 mmHg. Indication For Procedure: Bryan is a 75-year-old male, who presented to my clinic with signs, symptoms, and EMG/NCS study finding consistent with a left carpal tunnel syndrome. The patient failed conservative treatment measures and had significant symptoms interfering with his activities of daily living. I discussed with the patient at length risks and benefits associated with operative and nonoperative treatment. He expressed understanding and elected to proceed with operative treatment. Description Of Procedure: After informed consent was obtained, the patient was identified in the preoperative holding area. The left upper extremity was marked. The patient was then taken back to the operating room, transferred to the operative table in supine fashion, placed under general LMA anesthesia. Left upper extremity was then prepped and draped in a usual sterile fashion. A time-out was initiated. The correct patient and procedure were confirmed and identified. The patient did receive his preoperative prophylactic antibiotics. The left upper extremity was then exsanguinated using an Esmarch and the tourniquet was inflated to 250 mmHg. Approximately, a 3 cm longitudinal incision was made ulnar to the thenar crease. Dissection was then taken down to the palmar fascia. Self-retaining retractor was placed in. A [place] elevator was placed just deep to the palmar fascia and transverse carpal ligament to protect the median nerve at all times. The transverse carpal ligament was then divided using a 15 blade again ensuring the [place] elevator to protect the median nerve. After this was completed, the transverse carpal ligament was completely released. A smooth-tipped Metzenbaum was then used with the tips aimed superficially to release any remaining fascial bands. The wound was then irrigated thoroughly with normal saline. The skin was then approximated using a 5-0 Prolene. Sterile dressings were applied. Tourniquet was let down. Patient was awakened and transferred to PACU in stable condition. Postoperative Plan: The patient will begin working on range of motion exercises. He will follow up in my clinic in 1 week for suture removal. CV/MODL Voice ID: [id number] Report ID: [id number]
[2020-10-19 13:35] VITALS: BP 122/72; TEMP 96.5; O2SAT 97
== END 2020-10-19 12:09 | disposition home or self-care (01) ==
LOC: OR 07:57
PROVIDERS: ATTEND Orthopaedic Surgery Sports Medicine
PROC: 01N50ZZ Release Median Nerve, Open Approach (ICD-10-PCS; principal; 2020-10-19 10:30)
DX: G56.02 Carpal tunnel syndrome, left upper limb (principal); Z20.822 Contact with and (suspected) exposure to COVID-19
CPT/HCPCS: 85025; 80048; 36415 ×2; 85610; 82947; 85730; 71046; 64721; U0002; J2704; J3010; J0690; J7030; J2250

== ENCOUNTER 2020-11-16 10:25 | Emergency (ER) | payer OTHER ==
--- OUTSIDE RECORDS SUMMARY | 2020-11-16 10:29 | XMS REPORT | Continuity of Care Document ---
:1945 Author Organization [facility] t Address [address] [place] [address] Dr. R[address]. [address] [place] [address] Care Team Providers Name Role Phone Pcp MD, Neva Primary Care Physician Unavailable Gavin Franklin MD Attending Clinician Yolie MONTES, N Attending Clinician Unavailable KIM FRANKLIN Attending Clinician Unavailable Jeovanny MONTES Attending Clinician Unavailable Benjy Sheppard Attending Clinician Payers Payer Name Policy Type Policy Number Effective Date Expiration Date S ian AETNA - MEDICARE [id number] [address] [facility] MGD CAREAETNA 00:00:00 - Medical MEDICARE HMO POS Center [id number] [address] [address] Problems Condition Condition Condition Status Onset Resolution Last Treating Co mments Source Name Details Category Date Date Treatment Clinician Date Abnormal Abnormal Disease Active [facility]14 [facility] - stress stress 00:00: Medical test test 00 Center Carpal Problem Active 2020-07-22 Memor ia tunnel 01:18:22 l syndrome Carpal Prasanna n (disorder) tunnel syndrome (disorder) Active Problem 07/22/2020 [facility] Allergies, Adverse Reactions, Alerts This patient has no known allergies or adverse reactions. Family History Family Member Diagnosis Comments Start Date Stop Date Source Natural mother Hypertension [facility] Natural son Diabetes [facility] Natural brother Diabetes [facility] Social History Social Habit Start Date Stop Date Quantity Comments Source Sex Assigned At JOCELINE [place] [facility] Tobacco use and 2020-10-10 2020-10-10 Never used [facility] St Tyra duenass - exposure 00:00:00 00:00:00 [facility] Alcohol intake 2020-10-10 2020-10-10 Ex-drinker JOCELINE [place] [facility] - 00:00:00 00:00:00 (finding) [facility] Social History 2020-07-20 2020-07-20 [facility] 04:59:59 04:59:59 Smoking Status Start Date Stop Date Source Never smoker [facility] Medications Ordered Filled Start Stop Current Ordering [...] daily. Medi richard MG tablet 01 :00 [place] lisinopriL Yes 40mg QD Take 2 [facility] (PRINIVIL,Z 1-14 [facility] ESTRIL) 20 00:00: (40 mg Medic al MG tablet 00 total) by Cente r mouth daily. Vital Signs Vital Name Observation Time Observation Value Comments Source Systolic blood 2020-10-06 10:15:00 111 mm[Hg] [facility] Diastolic blood 2020-10-06 10:15:00 55 mm[Hg] [facility] S t [facility] Heart rate 2020-10-06 10:15:00 71 /min [facility] Respiratory rate 2020-10-06 10:15:00 18 /min [facility] Oxygen saturation in 2020-10-06 10:15:00 99 /min [facility] Arterial blood by Medical Ce nter Pulse oximetry Body temperature 2020-10-06 05:48:00 36.78 Vy [facility] Body height 2020-10-06 05:48:00 167.6 cm [facility] Body weight 2020-10-06 05:48:00 97.024 kg [facility] BMI 2020-10-06 05:48:00 34.52 kg/m2 [facility] Procedures Procedure Date / Time Performed Performing Clinician Kasi e L CATH & CORONARY ANGIOS 2020-10-06 07:02:00 Gavin Franklin [facility] CARDIAC CATH REPORT - 2020-10-06 00:00:00 Provider, Default [facility] SCAN Scanning [facility] REPORT OF PROCEDURE - 2020-10-06 00:00:00 Provider, Default [facility] ENDOSCOPY SCAN [facility] PROTHROMBIN TIME/INR 2020-10-03 07:45:00 Gavin Franklin [facility] SARS-COV2/RT-PCR ([facility] & 2020-10-03 07:31:[address] [facility] REF LAB[facility] Medical Center BASIC METABOLIC PANEL 2020-09-12 07:57:[address] [facility] - (7) [facility] CBC W/PLT COUNT & AUTO 2020-09-12 07:57:[address] [facility] DIFFERENTIAL [facility] SARS-COV2/RT-PCR ([facility] & 2020-09-12 07:44:[address] [facility] Center Plan of Care Planned Activity Planned [...] 00:00:00 (1 of 1 - Medical Center [id number] PCV13) [code = PNEUMOCOCCAL 65+ YRS (1 of 1 - [id number]_[id number] PCV13)] Future Scheduled 1963 HEPATITIS C SCREENING [facility] - Test 00:00:00 [code = HEPATITIS C Medical Center SCREENING] Future Scheduled 1952 DTAP/TDAP/TD VACCINES [facility] - Test 00:00:00 (1 - Tdap) [code = Medical C enter DTAP/TDAP/TD VACCINES (1 - Tdap)] Future Scheduled [address] [facility] - Test 00:00:00 malignant neoplasm of Medica l Center colon (procedure) [code = 465067112] Encounters Start End Encounter Admission Attending Care Care Encounter Source Date/Time Date/Time Type Type Clinicians Facility Department ID 2020-07-19 2020-07-19 Outpatient JEEVAN Sheppard [id number] 08:15:00 23:59:59 Joe 04 Benjy 2020-07-19 2020-07-19 Outpatient JEEVAN Sheppard [id number] 20:15:00 20:15:00 Joe 03 Benjy Results Test Description Test Time Test Comments Results Result Sourc e Comments CARDIAC CATH 2020-10-17 Ordered by an JOCELINE Finnegan kes REPORT - SCAN 14:53:49 unspecified - Medical provider. Center EKG-SCANNED 2020-10-06 Ordered by an JOCELINE Finnegank es 00:00:00 unspecified - Medical provider. Center SARS-CoV2/RT-PCR (Asymptomatic ONLY) 2020-10-03 12:47:00 Test Item Value Reference Range Interpretation Comme nts SARS-COV2/RT-PCR (test code = Negative Not Detected, 61853-5) Negative, See external report for linked test SARS-COV-2 PERFORMING LAB [facility] (test code = 26574-7) HENRIETTA (test code = HENRIETTA) Negative result [...] of the Act. Fact Sheet for Healthcare Providers:https://www.The G[employer]. com/sites/default/files/produ ct/documents/Fact_Sheet_HC_Pr nuizrfz_Xmud_RSQC-FrO-6.pdf Fact Sheet for Healthcare Patients:https://www.The [employer].SkillPixels om/sites/default/files/produc t/documents/Fact_Sheet_Carol km_Wkht_FPMK-FlF-6.pdf Performing Laboratory:[facility] [place] [address] [facility] ([facility] & REF LABS)2020-10-03 12:47:00 Test Item Value Reference Range Interpretation Comments SARS-COV2/RT-PCR (test Negative Not Detected, Negative, code = 4646955) See external report for linked test SARS-COV-2 PERFORMING LAB [facility] (test code = 7011820) Negative result for this test determines that [...] 564(g) of the Act.Fact Sheet for Healthcare Providers:https://www.iyzico/sites/default/files/product/documents/Fact_Sabra nazarioa_DS_Eiovlgzvw_Zfuv_VWBI-OiM-3.pdfFact Sheet for Healthcare Patients:https://www.iyzico/sites/default/files/product/ documents/Kxyy_Oywqt_Kfrqwpwe_Frxj_GKWO-HoP-8.pdfPerforming Laboratory:[facility], [place] [address]Wigkobhlxkq time/INR 2020-10-03 08:11:00 Test Item Value Reference Interpretation Comments Range Protime (test code = 17.1 See_Comment H [Autom ated 5902-2) message] The system which generated this result transmitted reference range : 11.9 - 14.2 seconds. The reference range was not used to interpret this result as normal/abnormal . INR (test code = 1.45 See_Comment [Automated 6301-6) message] The system which generated this result transmitted reference range : <=5.90. The reference range was not used to interpret this result as normal/abnormal . HENRIETTA (test code = Effective 02/18/2019: HENRIETTA) PT Reference Range ChangeNew: 11.9-14.2 Previous: 11.7-14.7 RECOMMENDED COUMADIN/WARFARIN INR THERAPY RANGESSTANDARD DOSE: 2.0-3.0 Includes: PROPHYLAXIS for venous thrombosis, systemic embolization; TREATMENT for venous thrombosis and/or pulmonary embolus.HIGH RISK: Target INR is 2.5-3.5 for patients wiht mechanical heart valves. Lab Interpretation Abnormal (test code = 07367-0) [facility][id number] 08:11:00 Test Item Value Reference Range Interpretation [...] is2.5-3.5 for patients wiht mechanical heart valves.SARS-COV2/RT-PCR ([facility] & REF LABS) 2020-09-12 11:24:00 Test Item Value Reference Range Interpretation Comments SARS-COV2/RT-PCR (test Negative Not Detected, Negative, code = 6491774) See external report for linked test SARS-COV-2 PERFORMING LAB [facility] (test code = 0044348) Negative result for this test determines that [...] 564(g) of the Act.Fact Sheet for Healthcare Providers:https://www.The Grommet.Mobimedia/sites/default/files/product/documents/Fact_Shee c_FT_Lskotyota_Jqmv_MMEB-ChG-9.pdfFact Sheet for Healthcare Patients:https://www.The Grommet.Mobimedia/sites/default/files/product/ documents/Ktxk_Ylavp_Qyrighzu_Bmmm_RPWM-CzF-8.pdfPerforming Laboratory:[facility], [place] [address]Jthpm Metabolic Panel 2020-09-12 08:22:00 Test Item Value Reference Range Interpretation Comments Sodium (test code = 137 meq/L 673-882 9455-2) Potassium (test code = 4.1 meq/L 3.5-5.1 2823-3) Chloride (test code = 101 meq/L 98-107 2075-0) CO2 (test code = 25 meq/L 22-29 2028-9) BUN (test code = 22 mg/dL 7-21 H 3094-0) Creatinine (test code 0.92 mg/dL 0.57-1.25 = 2160-0) Glucose (test code = 133 mg/dL 70-105 H 2345-7) Calcium (test code = 8.7 mg/dL 8.4-10.2 03302-1) EGFR (test code = 80 mL/min/1.73 [place] [address]-6) NOT ACCURATE CREATININE CLEARANCE IN PREDICTING GLOMERULAR FILTRATION RATE . ESTIMATED GFR I S NOT APPLICABLE FOR DIALYSIS PATIENTS. HENRIETTA (test code = HENRIETTA) Data Analysis Manager ID - CAROLINA F Lab Interpretation Abnormal (test code = 54178-8) [facility] METABOLIC [id number] 08:22:00 Test Item Value Reference Range Interpretation [...] S NOT APPLICABLE FOR DIALYSIS PATIEN TS. Data Analysis Manager ID - MONICA FCBC with platelet count + automated [id number] 08:05:00 Test Item Value Reference Range Interpretation Comments WBC (test code = 6690-2) 6.1 See_Comment [A utomated message] The system Simperium generated this result transmitted ref erence range: 3.5 - 10 .5 K/L. The refe rence range was not u sed to interpret this result as normal/abnor mal. RBC (test code = 789-8) 4.69 See_Comment [Au tomated message] The system [employer] generated this result transmitted ref erence range: 4.63 - 6 .08 M/L. The refe rence range was not u sed to interpret this result as normal/abnor mal. MCHC (test code = 786-4) 33.2 See_Comment [A utomated message] The system [employer]perium generated this result transmitted ref erence range: 32.3 - 3 6.5 GM/DL. The refe rence range was not u sed to interpret this result as normal/abnor mal. Hematocrit (test code = 44.9 % 40.1-51 4544-3) MCV (test code = 787-2) 95.7 fL 79-92.2 H MCH (test code = 785-6) 31.8 pg 25.7-32.2 RDW (test code = 788-0) 14.1 % 11.6-14.4 Platelets (test code = 160 See_Comment [Aut omated message] 337-3) The system [employer]ium generated this result transmitted ref erence range: 150 - 45 0 K/CU MM. The referen ce range was not u sed to interpret this result as normal/abnor mal. MPV (test code = 10.6 fL 9.4-12.4 71856-5) nRBC (test code = 413) 0 See_Comment [Aut omated message] The system [employer]ium generated this result transmitted ref erence range: 0 - 0 /1 00 WBC. The refere nce range was not u sed to interpret this result as normal/abnor mal. % Neutros (test code = 58 % 429) % Lymphs (test code = 30 % 430) % Monos (test code = 7 % 431) % Eos (test code = 432) 3 % % Baso (test code = 437) 1 % # Neutros (test code = 3.57 See_Comment [Aut omated message] 670) The system [employer]perium generated this result transmitted ref erence range: 1.78 - 5 .38 K/L. The refe rence range was not u sed to interpret this result as normal/abnor mal. # Lymphs (test code = 1.84 See_Comment [Auto mated message] 414) The system [employer]perium generated this result transmitted ref erence range: 1.32 - 3 .57 K/L. The refe rence range was not u sed to interpret this result as normal/abnor mal. # Monos (test code = 0.45 See_Comment [Autom ated message] 415) The system [employer]ium generated this result transmitted ref erence range: 0.30 - 0 .82 K/L. The refe rence range was not u sed to interpret this result as normal/abnor mal. # Eos (test code = 416) 0.20 See_Comment [Au tomated message] The system [employer]perium generated this result transmitted ref erence range: 0.04 - 0 .54 K/L. The refe rence range was not u sed to interpret this result as normal/abnor mal. # Baso (test code = 417) 0.04 See_Comment [A utomated message] The system [employer]perium generated this result transmitted ref erence range: 0.01 - 0 .08 K/L. The refe rence range was not u sed to interpret this result as normal/abnor mal. Immature 0 % 0-1 Granulocytes-Relative (test code = 2801) Lab Interpretation (test Abnormal code = 12422-1) [facility] W/PLT COUNT & AUTO [id number] 08:05:00 Test Item Value Reference Range Interpretation [...] 417) IMMATURE GRANULOCYTES-RELATIVE 0 % 0-1 PERCENT (ANDREA) (test code = 2801)
--- NOTE | 2020-11-16 13:10 | RAD REPORT ---
EXAM DESCRIPTION: CT - Head Brain Wo Cont - 11/16/2020 1:01 pm CLINICAL HISTORY: DIZZINESS Headache, drowsiness, dizziness COMPARISON: Head Brain Wo Cont dated 09/24/2016 TECHNIQUE: All CT scans are performed using dose optimization technique as appropriate and may inclu de automated exposure control or mA/KV adjustment according to patient size. FINDINGS: No intracranial hemorrhage, hydrocephalus or extra-axial fluid collection.Mild generalized brain atrophy.No areas of brain edema or evidence of midline shift. Chronic sinusitis right maxillary antrum. The paranasal sinuses and mastoids are otherwise clear. The calvarium is intact. The left vertebral artery is calcified. IMPRESSION: No acute intracranial abnormality. Chronic right maxillary sinusitis
--- NOTE | 2020-11-16 13:20 | RAD REPORT ---
EXAM DESCRIPTION: RAD - Chest Single View - 11/16/2020 1:15 pm CLINICAL HISTORY: DYSPNEA Chest pain. COMPARISON: Chest Pa And Lat (2 Views) dated 10/13/2020; Chest Pa And Lat (2 Views) dated 07/14/2017; Chest Single View dated 07/09/2017; Chest Pa And Lat (2 Views) dated 06/09/2017; CHEST SINGLE VIEW da jacinda 03/26/2011 FINDINGS: Portable technique limits examination quality. The lungs are grossly clear. The heart is quite prominent in size with changes of a prior CABG noted. No displaced fractures. IMPRESSION: Moderate cardiomegaly.
[2020-11-16 13:38] LABS: Absolute Lymphocytes (CBC) 1.7 K/uL (0.7-4.9); Basophils % 0.8 % (0-1.3); Hematocrit 42.1 % (39.6-49.0); Lymphocytes % 24.1 % (15.3-44.8); MPV 9.4 fL (7.6-11.3); RBC Red Blood Cell Count 4.37 M/uL (4.33-5.43)
[2020-11-16 13:50] LABS: Potassium 4.2 mmol/L (3.5-5.1)
--- NOTE | 2020-11-16 14:34 | ER ---
Nurse's Notes [facility] Name: Bryan Nance Age: 75 yrs Sex: Male : 1945 Arrival Date: 11/16/2020 Time: 10:27 Bed 24 Private MD: Diagnosis: Dizziness and giddiness Presentation: 11/16 10:31 Chief complaint: Patient states: Been taking Metformin x 3 weeks now, and it's making ca1 me dizzy. The nurse say it will go away and my body will adjust to it. But since yesterday was worse, I couldn't take anymore than 5 steps because I get real dizzy. Talking to you right now, makes me dizzy. The vision problems come with the dizziness. Coronavirus screen: Client denies travel out of the [place] in the last 14 days. At this time, the client does not indicate any symptoms associated with coronavirus-19. Ebola Screen: Patient negative for fever greater than or equal to 101.5 degrees Fahrenheit, and additional compatible Ebola Virus Disease symptoms Patient denies exposure to infectious person. Patient denies travel to an Ebola-affected area in the 21 days before illness onset. No symptoms or risks identified at this time. Initial Sepsis Screen: Does the patient meet any 2 criteria? No. Patient's initial sepsis screen is negative. Does the patient have a suspected source of infection? No. Patient's initial sepsis screen is negative. Risk Assessment: Do you want to hurt yourself or someone else? Patient reports no desire to harm self or others. Onset of symptoms was November 16, 2020. 10:31 Method Of Arrival: Ambulatory ca1 10:31 Acuity: CRICKET 3 ca1 Historical: - Allergies: 10:37 No Known Allergies; ca1 - Home Meds: 10:45 potassium chloride 20 mEq Oral TbER 2 tab once daily for Hypokalemia Prevention ca1 [Active]; allopurinol 300 mg Oral tab 1 tab once daily [Active]; lisinopril 10 mg Oral tab 1 tab once daily [Active]; metoprolol succinate 100 mg oral Tb24 1 tab twice a day [Active]; Lasix 40 mg Oral tab 1 tab 2 times per day [Active]; simvastatin 10 mg Oral tab 1 tab once daily [Active]; Eliquis 5 mg Oral tab 1 tab 2 times per day [Active]; aspirin 81 mg Oral TbEC 1 tab once daily [Active]; metformin 500 mg Oral Tb24 1 tab once daily [Active]; - PMHx: 10:37 Atrial Fib; CHF; Gout; High Cholesterol; Hypertension; ca1 - PSHx: 10:37 CABG; Appendectomy; Hernia repair; ca1 10:45 Cholecystectomy; Knee surgery; shoulder surgery; ca1 - Immunization history:: Pneumococcal vaccine is up to date, Flu vaccine is up to date. - Social history:: Smoking status: Patient denies any tobacco usage or history of. - Family history:: not pertinent. - Hospitalizations: : No recent hospitalization is reported. Screenin:36 Abuse screen: Denies threats or abuse. Denies injuries from another. Nutritional zb screening: No deficits noted. Tuberculosis screening: No symptoms or risk factors identified. Fall Risk No fall in past 12 months (0 pts). No secondary diagnosis (0 pts). IV access (20 points). Ambulatory Aid- None/Bed Rest/Nurse Assist (0 pts). Gait- Weak (10 pts.). Mental Status- Oriented to own ability (0 pts). Total Mcclellan Fall Scale indicates No Risk (0-24 pts). Assessment: 12:32 General: Appears in no apparent distress. comfortable, Behavior is calm, cooperative, zb appropriate for age, Reports fatigue for 3 weeks . Pain: Denies pain. Neuro: Level of Consciousness is awake, alert, obeys commands, Oriented to person, place, time, situation. Neuro: Reports blurred vision since 3 weeks dizziness, 3 weeks Denies numbness headache photophobia. Cardiovascular: Reports fatigue, lightheadedness, shortness of breath, Denies chest pain, nausea, vomiting, Heart tones S1 S2 present Capillary refill < 3 seconds Patient's skin is warm and dry. Pulses are all present. Respiratory: Airway is patent Respiratory effort is even, unlabored, Respiratory pattern is regular, symmetrical, Breath sounds are clear bilaterally. GI: Abdomen is round non-distended, Bowel sounds present X 4 quads. : No signs and/or symptoms were reported regarding the genitourinary system. EENT: No signs and/or symptoms were reported regarding the EENT system. Derm: Skin is intact, is healthy with good turgor, is fragile, Skin is dry, Skin is normal, Skin temperature is warm. Musculoskeletal: Range of motion: intact in all extremities. 13:30 Reassessment: Patient appears in no apparent distress at this time. Patient and/or zb family updated on plan of care and expected duration. Pain level reassessed. Patient is alert, oriented x 3, equal unlabored respirations, skin warm/dry/pink. no changes at this. patient awaiting results. 14:34 Reassessment: Patient appears in no apparent distress at this time. Patient and/or zb family updated on plan of care and expected duration. Pain level reassessed. Patient is alert, oriented x 3, equal unlabored respirations, skin warm/dry/pink. updated patient family per patient on plan of care. 14:55 Reassessment: d/c info given . gait even and steady upon discharge. zb Vital Signs: 10:31 BP 150 / 71; Pulse 83; Resp 18 S; Temp 98.1(TE); Pulse Ox 96% on R/A; Weight 94.8 kg ca1 (R); Height 5 ft. 6 in. (167.64 cm) (R); Pain 0/10; 13:33 BP 114 / 75; Pulse 85; Resp 16; Pulse Ox 95% on R/A; zb 14:35 BP 104 / 63; Pulse 73; Resp 16; Pulse Ox 96% on R/A; zb 10:31 Body Mass Index 33.73 (94.80 kg, 167.64 cm) ca1 ED Course: 10:27 Patient arrived in ED. as 10:35 Triage completed. ca1 10:37 Arm band placed on right wrist. ca1 12:21 Kevon Walker MD is Attending Physician. rn 12:24 Joselyn Phillips RN is Primary Nurse. zb 12:36 Patient has correct armband on for positive identification. Bed in low position. Call zb light in reach. Side rails up X 1. Pulse ox on. NIBP on. 13:01 CT Head Brain wo Cont In Process Unspecified. EDMS 13:15 XRAY Chest (1 view) In Process Unspecified. EDMS 13:32 Inserted saline lock: 20 gauge in right antecubital area, using aseptic technique. dh4 14:54 No provider procedures requiring assistance completed. IV discontinued, intact, zb bleeding controlled, No redness/swelling at site. Pressure dressing applied. Administered Medications: No medications were administered Outcome: 14:34 Discharge ordered by . rn 14:54 Discharged to home ambulatory. zb 14:54 Condition: stable 14:54 Discharge instructions given to patient, Instructed on discharge instructions, follow up and referral plans. Demonstrated understanding of instructions, follow-up care. 14:55 Patient left the ED. brianb Signatures: Dispatcher [employer] Hortencia Mills Roman, MD MD rn Acob, Gwne, RN RN [facility] Maikol Massey [facility] Joselyn Phillips RN RN zb
--- NOTE | 2020-11-16 14:34 | EDPHYS ---
Physician Documentation [facility] Name: Bryan Nance Age: 75 yrs Sex: Male : 1945 Arrival Date: 11/16/2020 Time: 10:27 Bed 24 Private MD: ED Physician Kevon Walker HPI: 11/16 14:25 This 75 yrs old Male presents to ER via Ambulatory with complaints of rn Dizziness. 14:28 The patient presents with dizziness. Onset: The symptoms/episode began/occurred 3 rn week(s) ago. Modifying factors: The symptoms are alleviated by nothing, the symptoms are aggravated by changing position. Severity of symptoms: At their worst the symptoms were mild in the emergency department the symptoms are unchanged. The patient has not experienced similar symptoms in the past. The patient has been recently seen by a physician:. Reports dizziness for 3 weeks, intermittent, worse with change in position or walking, gets better with sitting or laying, no syncope. No chest pain or sob. No fever. No abd pain. Attributes dizziness to metformin as started around the same time he began his metformin. No other medication changes. . Historical: - Allergies: 10:37 No Known Allergies; ca1 - Home Meds: 10:45 potassium chloride 20 mEq Oral TbER 2 tab once daily for Hypokalemia Prevention ca1 [Active]; allopurinol 300 mg Oral tab 1 tab once daily [Active]; lisinopril 10 mg Oral tab 1 tab once daily [Active]; metoprolol succinate 100 mg oral Tb24 1 tab twice a day [Active]; Lasix 40 mg Oral tab 1 tab 2 times per day [Active]; simvastatin 10 mg Oral tab 1 tab once daily [Active]; Eliquis 5 mg Oral tab 1 tab 2 times per day [Active]; aspirin 81 mg Oral TbEC 1 tab once daily [Active]; metformin 500 mg Oral Tb24 1 tab once daily [Active]; - PMHx: 10:37 Atrial Fib; CHF; Gout; High Cholesterol; Hypertension; ca1 - PSHx: 10:37 CABG; Appendectomy; Hernia repair; ca1 10:45 Cholecystectomy; Knee surgery; shoulder surgery; ca1 - Immunization history:: Pneumococcal vaccine is up to date, Flu vaccine is up to date. - Social history:: Smoking status: Patient denies any tobacco usage or history of. - Family history:: not pertinent. - Hospitalizations: : No recent hospitalization is reported. ROS: 14:28 Constitutional: Negative for fever, chills, and weight loss, Eyes: Negative for injury, rn pain, redness, and discharge, Neck: Negative for injury, pain, and swelling, Cardiovascular: Negative for chest pain, palpitations, and edema, Respiratory: Negative for shortness of breath, cough, wheezing, and pleuritic chest pain, Abdomen/GI: Negative for abdominal pain, nausea, vomiting, diarrhea, and constipation, Back: Negative for injury and pain, MS/Extremity: Negative for injury and deformity, Skin: Negative for injury, rash, and discoloration, Neuro: Negative for headache, weakness, numbness, tingling, and seizure. Exam: 14:28 Constitutional: This is a well developed, well nourished patient who is awake, alert, rn and in no acute distress. Head/Face: Normocephalic, atraumatic. Eyes: Pupils equal round and reactive to light, extra-ocular motions intact. Lids and lashes normal. Conjunctiva and sclera are non-icteric and not injected. Cornea within normal limits. Periorbital areas with no swelling, redness, or edema. Cardiovascular: Irregular rhythm, regular rate. No pulse deficits. Respiratory: No increased work of breathing, no retractions or nasal flaring. Abdomen/GI: soft, non-tender Skin: Warm, dry MS/ Extremity: Pulses equal, no cyanosis. Neuro: Awake and alert, GCS 15, oriented to person, place, time, and situation. Cranial nerves II-XII grossly intact. Motor strength 5/5 in all extremities. Sensory grossly intact. Cerebellar exam normal. Vital Signs: 10:31 BP 150 / 71; Pulse 83; Resp 18 S; Temp 98.1(TE); Pulse Ox 96% on R/A; Weight 94.8 kg ca1 (R); Height 5 ft. 6 in. (167.64 cm) (R); Pain 0/10; 13:33 BP 114 / 75; Pulse 85; Resp 16; Pulse Ox 95% on R/A; zb 14:35 BP 104 / 63; Pulse 73; Resp 16; Pulse Ox 96% on R/A; zb 10:31 Body Mass Index 33.73 (94.80 kg, 167.64 cm) ca1 MDM: 12:21 Patient medically screened. rn 14:28 Differential diagnosis: cardiac arrhythmia, hypovolemia, idiopathic dizziness, vertigo, product management intern reaction, vertigo. Data reviewed: vital signs, nurses notes, lab test result(s), EKG, radiologic studies, CT scan, plain films, and as a result, I will discharge patient. Counseling: I had a detailed discussion with the patient and/or guardian regarding: the historical points, exam findings, and any diagnostic results supporting the discharge/admit diagnosis, lab results, radiology results, the need for outpatient follow up, to return to the emergency department if symptoms worsen or persist or if there are any questions or concerns that arise at home. Response to treatment: the patient's symptoms have mildly improved after treatment, and as a result, I will discharge patient. Special discussion: I discussed with the patient/guardian in detail that at this point there is no indication for admission to the hospital. It is understood, however, that if the symptoms persist or worsen the patient needs to return immediately for re-evaluation. ED course: NO acute findings on CT head, CXR, or bloodwork, no gross abnormality directly attributable to metformin, will have patient f/u with pcp for medication management. . 11/16 12:41 Order name: CBC with Diff; Complete Time: 13:57 rn 11/16 12:41 Order name: Basic Metabolic Panel; Complete Time: 13:57 rn 11/16 12:41 Order name: Lactate; Complete Time: 13:57 rn 11/16 12:41 Order name: XRAY Chest (1 view); Complete Time: 13:29 rn 11/16 12:41 Order name: CT Head Brain wo Cont; Complete Time: 13:29 rn 11/16 12:41 Order name: IV Start; Complete Time: 13:32 rn 11/16 12:41 Order name: EKG; Complete Time: 12:42 rn 11/16 12:41 Order name: EKG - Nurse/Tech; Complete Time: 13:32 rn Administered Medications: No medications were administered Disposition: 11/16/20 14:34 Discharged to Home. Impression: Dizziness and giddiness. - Condition is Stable. - Discharge Instructions: Dizziness. - Medication Reconciliation Form, Thank You Letter, Antibiotic Education, Prescription Opioid Use form. - Follow up: Private Physician; When: As needed; Reason: Recheck today's complaints, Re-evaluation by your physician. - Problem is an ongoing problem. - Symptoms have improved. Signatures: Dispatcher [employer] [facility] Kevon Walker MD MD rn Acob, Cheryl RN Joselyn De Jesus RN RN zb Corrections: (The following items were deleted from the chart) 14:29 12:42 CORONAVIRUS+MR.LAB.BRZ ordered. [facility] EDND 14:55 14:34 11/16/2020 14:34 Discharged to Home. Impression: Dizziness and giddiness. zb Condition is Stable. Forms are Medication Reconciliation Form, Thank You Letter, Antibiotic Education, Prescription Opioid Use. Follow up: Private Physician; When: As needed; Reason: Recheck today's complaints, Re-evaluation by your physician. Problem is an ongoing problem. Symptoms have improved. rn
[2020-11-16 15:23] VITALS: TEMP 98.1
[2020-11-16 15:25] VITALS: BP 104/63; O2SAT 96
--- NOTE | 2020-11-17 05:38 | EKG ---
Test Date: 2020-11-16 Test Time: 13:10:36 Gem Setter: AARON MEASUREMENT RESULTS: Intervals: Rate: 82 CT: QRSD: 88 QT: 428 QTc: 500 [place]: P: CT: QRS: 79 T: 0 INTERPRETIVE STATEMENTS: Atrial fibrillation Low voltage QRS Cannot rule out Anterior infarct, age undetermined Prolonged QT Abnormal ECG Compared to ECG 07/10/2017 00:07:41 Myocardial infarct finding now present Prolonged QT interval now present ST (T wave) deviation no longer present T-wave abnormality no longer present Electronically Signed On 11-17-20 05:35:35 CORONER FORENSIC TECHNICIAN by Aditya Rogers
== END 2020-11-16 14:55 | disposition home or self-care (01) ==
LOC: ER 10:25
DX: R42 Dizziness and giddiness (principal); I48.91 Unspecified atrial fibrillation; I11.0 Hypertensive heart disease with heart failure; I50.9 Heart failure, unspecified; M10.9 Gout, unspecified; E78.00 Pure hypercholesterolemia, unspecified; Z95.1 Presence of aortocoronary bypass graft; Z20.822 Contact with and (suspected) exposure to COVID-19
CPT/HCPCS: 93005; 85025; 80048; 36415; 83605; 70450; 71045; 99283; U0003

== ENCOUNTER 2021-12-20 16:09 | Emergency (ER) | payer OTHER ==
--- OUTSIDE RECORDS SUMMARY | 2021-12-20 16:14 | XMS REPORT | Continuity of Care Document ---
:1945 Author Organization [facility] Address [address] [place] [address] Care Team Providers Name Role Phone Zhao Shetty Attending Clinician Unavailable Zakiya Adams Attending Clinician Unavailable BISHNU Attending Clinician Unavailable KIM BUCKNER Attending Clinician Unavailable Ashish BEDOLLA Attending Clinician Unavailable UNKNOWN Attending Clinician Unavailable WENDY BAILEY Attending Clinician Unavailable Bishnu LINDA Attending Clinician Doctor Unassigned, Name Attending Clinician Unavailable Only, Test Attending Clinician Unavailable Pob, Lab Main Attending Clinician Unavailable BABAKK Attending Clinician Unavailable Zakiya Adams Admitting Clinician Unavailable Physician, Primary or Family Admitting Clinician Unavailbrianna GOETZ Admitting Clinician Unavailable KIM BUCKNER Admitting Clinician Unavailable Ashish BEDOLLA Admitting Clinician Unavailable Bishnu LINDA Admitting Clinician Payers Payer Name Policy Type Policy Number Effective Date Expiration Date S ource AETNA MEDICARE ADV [id number] 2020 00:00:00 [employer]ET[employer] MEDICARE HMO [id number] 2019 POS PPO 00:00:00 Problems Condition Condition Condition Status Onset Resolution Last Treating Co mments Source Name Details Category Date Date Treatment Clinician Date Carpal Problem Active 2020-07-22 [facility] tunnel 01:18:22 l syndrome Carpal Prasanna n (disorder) tunnel syndrome (disorder) Active Problem 07/22/2020 [facility] Allergies, Adverse Reactions, Alerts Allergy Allergy Status Severity Reaction(s) Onset Inactive Treating Comm ents Source Name Type Date Date Clinician No Known DA Active U 2020-09 [facility] Allergie 10-11 [place] [facility] 00:00: Health 00 [facility] NO KNOWN Drug Active Univers ALLERGIE Class ity of S [facility] NO KNOWN [facility] Social History Social Habit Start Date Stop Date Quantity Comments Source History of Cigar Smoker University o f tobacco use [facility] Exposure to Not sure [place] of SARS-CoV-2 [facility] (event) [place] Tobacco use and 2020-12-29 2020-12-29 Never used Universit y of exposure 00:00:00 00:00:00 [facility] Alcohol intake 2020-12-29 2020-12-29 Current drinker Unive rsity of 00:00:00 00:00:00 of alcohol [facility] (finding) [place] Social History 2020-07-20 2020-07-20 [facility] Dale osborne 04:59:59 04:59:59 Sex [birth year] Universit y of 00:00:00 00:00:00 [facility] Smoking Status Start Date Stop Date Source Former smoker 2020-12-29 00:00:00 2020-12-29 00:00:00 Universi ty of [facility] Medications Ordered Filled Start Stop Current Ordering Indication Dosage Frequency Signature Comments Components Source Medication Medication Date Date Medication? Clinician (SIG) Name Name potassium Yes 20meq Take 20 Univ ers chloride 20 4-08 mEq by ity of mEq packet 15:49[place] ([place] times Branch daily. aspirin Yes 81mg Take 81 mg Univ ers (ASPIRIN 4-08 by mouth ity of LOW DOSE) 15:49: daily. [place] 81 mg EC Medical tablet Branch metoprolol Yes 100mg Take 100 Un miguelito succinate 4-08 mg by ity of XL 100 mg 15:49: mouth 2 [place] 24 hr 01 (two) Medical tablet times Branch daily. simvastatin 2020-0 Yes 20mg Take 20 mg Univers 20 mg 4-08 by mouth ity of tablet 15:49: at [place] bedtime. Medical Branch apixaban 0 Yes 5mg Take 5 mg Univ ers (ELIQUIS) 5 4-08 by mouth 2 it y of mg tablet 15:49: (two) [place] times Medical daily. Branch allopurinoL 0 Yes 300mg Take 300 U nivers 300 mg 4-08 mg by ity of tablet 15:49: mouth [place] daily. Medical Branch lisinopriL Yes 10mg Take 10 mg U nivers 10 mg 4-08 by mouth ity of tablet 15:49: daily. [place] Medical Branch furosemide 2020-0 Yes 20mg Take 20 mg U nivers (LASIX) 20 4-08 by mouth ity o f mg tablet 15:49: every [place] morning Medical and Branch evening. rosuvastati Yes 20mg Take 20 mg Univers n 20 mg 4-08 by mouth ity of tablet 15:49: at [place] bedtime. Medical Branch ALPRAZolam Yes .25mg Take 0.25 U nivers (XANAX) 4-08 mg by ity of 0.25 mg 15:49: mouth 2 [place] tablet 01 (two) Medical times Branch daily. potassium 2020-0 Yes 20meq Take 20 Univ ers chloride 20 4-08 mEq by ity of mEq packet 15:49: [place] ([place] times Branch daily. aspirin 2020-0 Yes 81mg Take 81 mg Univ ers (ASPIRIN 4-08 by mouth ity of LOW DOSE) 15:49: daily. [place] 81 mg EC Medical tablet Branch metoprolol 2020-0 Yes 100mg Take 100 Un miguelito succinate 4-08 mg by ity of XL 100 mg 15:49: mouth 2 [place] 24 hr 01 (two) Medical tablet times Branch daily. simvastatin 2020-0 Yes 20mg Take 20 mg Univers 20 mg 4-08 by mouth ity of tablet 15:49: at [place] bedtime. Medical Branch apixaban 2020-0 Yes 5mg Take 5 mg Univ ers (ELIQUIS) 5 4-08 by mouth 2 it y of mg tablet 15:49: (two) [place] times Medical daily. Branch allopurinoL Yes 300mg Take 300 U nivers 300 mg 4-08 mg by ity of tablet 15:49: mouth [place] daily. Medical Branch lisinopriL Yes 10mg Take 10 mg U nivers 10 mg 4-08 by mouth ity of tablet 15:49: daily. Medical Branch furosemide 0 Yes 20mg Take 20 mg U nivers (LASIX) 20 4-08 by mouth ity o f mg tablet 15:49: every morning Medical and Branch evening. rosuvastati Yes 20mg Take 20 mg Univers n 20 mg 4-08 by mouth ity of tablet 15:49: at [place] bedtime. Medical Branch ALPRAZolam Yes .25mg Take 0.25 U nivers (XANAX) 4-08 mg by ity of 0.25 mg 15:49: mouth 2 [place] tablet 01 (two) Medical times Branch daily. potassium Yes 20meq Take 20 Univ ers chloride 20 4-08 mEq by ity of mEq packet 15:49: [place] 01 (two) Medical times Branch daily. aspirin Yes 81mg Take 81 mg Univ ers (ASPIRIN 4-08 by mouth ity of LOW DOSE) 15:49: daily. [place] 81 mg EC Medical tablet Branch metoprolol Yes 100mg Take 100 Un miguelito succinate 4-08 mg by ity of XL 100 mg 15:49: mouth 2 [place] 24 hr 01 (two) Medical tablet times Branch daily. simvastatin Yes 20mg Take 20 mg Univers 20 mg 4-08 by mouth ity of tablet 15:49: at [place] bedtime. Medical Branch apixaban Yes 5mg Take 5 mg Univ ers (ELIQUIS) 5 4-08 by mouth 2 it y of mg tablet 15:49: (two) [place] times Medical daily. Branch allopurinoL Yes 300mg Take 300 U nivers 300 mg 4-08 mg by ity of tablet 15:49: mouth [place] daily. Medical Branch lisinopriL Yes 10mg Take 10 mg U nivers 10 mg 4-08 by mouth ity of tablet 15:49: daily. Medical Branch furosemide Yes 20mg Take 20 mg U nivers (LASIX) 20 4-08 by mouth ity o f mg tablet 15:49: every [place] morning Medical and Branch evening. rosuvastati Yes 20mg Take 20 mg Univers n 20 mg 4-08 by mouth ity of tablet 15:49: at [place] bedtime. Medical Branch ALPRAZolam Yes .25mg Take 0.25 U nivers (XANAX) 4-08 mg by ity of 0.25 mg 15:49: mouth 2 [place] tablet 01 (two) Medical times Branch daily. HYDROcodone Yes 1{tbl} 1 tablet, Univers -acetaminop 4-08 Oral, ity of hen (NORCO) 14:42: Q6HPRN, [place] 10-325 mg 47 Starting Medica l tablet 1 Sat12/29/20 Branc h tablet at 0942, Until Discontinu ed, Routine, Pain (scale 7-10), DSU Recovery acetaminoph Yes 1{tbl} 1 tablet, Univers en-codeine 4-08 Oral, PRN, ity of (TYLENOL 14:42: 1 dose, [place] #3) 300-30 47 Starting Medic al mg tablet 1 Sat12/29/20 Br anch tablet at 0942, Until Discontinu ed, Routine, Pain (scale 4-6), DSU Recovery acetaminoph Yes 650mg 650 mg, Un miguelito en 4-08 Oral, ity of (TYLENOL) 14:42: Q6HPRN, [place] tablet 650 47 Starting Medic al mg Radha 12/29/20 Branch at 0942, Until Discontinu ed, Routine, Pain (scale 1-3), DSU Recovery HYDROcodone 2020- No 1{tbl} 1 tablet, Univers -acetaminop 4-08 04-08 Oral, ity of hen (NORCO) 14:42: 17:49 Q6HPRN, [place] 10-325 mg 47 :01 Starting Medica l tablet 1 Sat12/29/20 Branc h tablet at 0942, Until Sat12/29/20 at 1249, Routine, Pain (scale 7-10), DSU Recovery acetaminoph 2020- No 1{tbl} 1 tablet, Univers en-codeine 12-29 Oral, PRN, it y of (TYLENOL 14:42: 17:49 1 dose, [place] #3) 300-30 47 :01 Starting Medic al mg tablet 1 Radha 12/29/20 Br anch tablet at 0942, Until Radha 12/29/20 at 1249, Routine, Pain (scale 4-6), DSU Recovery acetaminoph 2020- No 650mg 650 mg, U nivers en 12-29 Oral, ity of (TYLENOL) 14:42: 17:49 Q6HPRN, [place] tablet 650 47 :01 Starting Medic al mg Radha 12/29/20 Branch at 0942, Until Radha 12/29/20 at 1249, Routine, Pain (scale 1-3), DSU Recovery bupivacaine Yes PRN, Univer s liposome 12-29 Starting ity of (PF) 14:08: Radha 12/29/20 [place] (EXPAREL 00 at 0908, Medical (PF)) 1.3 % Until [place] (13.3 Discontinu mg/mL) ed, injection Routine, Intra-op lactated 2020- No 1000mL at 42 Unive rs ringers IV 12-29 04-08 mL/hr, ity of infusion 12:15: 12:23 1,000 mL, [place] 1,000 mL 00 :00 IV Medical Infusion, Branch ONCE, 1 dose, Radha 12/29/20 at 0715, Routine, DSU Pre-op lactated 2020- No 1000mL at 42 Unive rs ringers IV 12-29 04-08 mL/hr, ity of infusion 12:15: 12:23 1,000 mL, [place] as 1,000 mL 00 :00 IV Medical Infusion, Branch ONCE, 1 dose, Radha 12/29/20 at 0715, Routine, DSU Pre-op simvastatin Yes 20mg Take 20 mg Univers 20 mg 05 by mouth ity of tablet 18:59: at [place] 06 bedtime. Medical Branch rosuvastati Yes 20mg Take 20 mg Univers n 20 mg 4-05 by mouth ity of tablet 18:59: at [place] [address] bedtime. Medical Branch ALPRAZolam Yes .25mg Take 0.25 U nivers (XANAX) 4-05 mg by ity of 0.25 mg 18:59: mouth 2 [place] tablet 06 (two) Medical times Branch daily. simvastatin Yes 20mg Take 20 mg Univers 20 mg 4-05 by mouth ity of tablet 18:59: at [place] [address] bedtime. Medical Branch rosuvastati Yes 20mg Take 20 mg Univers n 20 mg 4-05 by mouth ity of tablet 18:59: at [place] 06 bedtime. Medical Branch ALPRAZolam Yes .25mg Take 0.25 U nivers (XANAX) 4-05 mg by ity of 0.25 mg 18:59: mouth 2 [place] tablet 06 (two) Medical times Branch daily. simvastatin Yes 20mg Take 20 mg Univers 20 mg 4-05 by mouth ity of tablet 18:59: at [place] [address] bedtime. Medical Branch rosuvastati Yes 20mg Take 20 mg Univers n 20 mg 4-05 by mouth ity of tablet 18:59: at [place] 06 bedtime. Medical Branch ALPRAZolam Yes .25mg Take 0.25 U nivers (XANAX) 4-05 mg by ity of 0.25 mg 18:59: mouth 2 [place] tablet 06 (two) Medical times Branch daily. aspirin Yes 81mg Take 81 mg Univ ers (ASPIRIN 4-05 by mouth ity of LOW DOSE) 18:42: daily. [place] 81 mg EC 38 Medical tablet Branch metoprolol Yes 100mg Take 100 Un miguelito succinate 4-05 mg by ity of XL 100 mg 18:42: mouth 2 [place] 24 hr 38 (two) Medical tablet times Branch daily. apixaban Yes 5mg Take 5 mg Univ ers (ELIQUIS) 5 4-05 by mouth 2 it y of mg tablet 18:42: (two) [place] 38 times Medical daily. Branch allopurinoL Yes 300mg Take 300 U nivers 300 mg 4-05 mg by ity of tablet 18:42: mouth [place] [address] daily. Medical Branch lisinopriL 2020-0 Yes 10mg Take 10 mg U nivers 10 mg 4-05 by mouth ity of tablet 18:42: daily. [place] [address] Medical Branch furosemide 2020-0 Yes 20mg Take 20 mg U nivers (LASIX) 20 4-05 by mouth ity o f mg tablet 18:42: every [place] [address] morning Medical and Branch evening. aspirin 2020-0 Yes 81mg Take 81 mg Univ ers (ASPIRIN 4-05 by mouth ity of LOW DOSE) 18:42: daily. [place] 81 mg EC 38 Medical tablet Branch metoprolol 2020-0 Yes 100mg Take 100 Un miguelito succinate 4-05 mg by ity of XL 100 mg 18:42: mouth 2 [place] 24 hr 38 (two) Medical tablet times Branch daily. apixaban 2020-0 Yes 5mg Take 5 mg Univ ers (ELIQUIS) 5 4-05 by mouth 2 it y of mg tablet 18:42: (two) [place] [address] times [facility] daily. Branch allopurinoL 2020-0 Yes 300mg Take 300 U nivers 300 mg 4-05 mg by ity of tablet 18:42: mouth [place] [address] daily. Medical Branch lisinopriL 2020-0 Yes 10mg Take 10 mg U nivers 10 mg 4-05 by mouth ity of tablet 18:42: daily. [place] [address] Medical Branch furosemide 2020-0 Yes 20mg Take 20 mg U nivers (LASIX) 20 4-05 by mouth ity o f mg tablet 18:42: every [place] [address] morning Medical and Branch evening. aspirin 2020-0 Yes 81mg Take 81 mg Univ ers (ASPIRIN 4-05 by mouth ity of LOW DOSE) 18:42: daily. [place] 81 mg EC 38 Medical tablet Branch metoprolol 2020-0 Yes 100mg Take 100 Un miguelito succinate 4-05 mg by ity of XL 100 mg 18:42: mouth 2 [place] 24 hr 38 (two) Medical tablet times Branch daily. apixaban 2020-0 Yes 5mg Take 5 mg Univ ers (ELIQUIS) 5 4-05 by mouth 2 it y of mg tablet 18:42: (two) [place] [address] times Medical daily. Branch allopurinoL 2020-0 Yes 300mg Take 300 U nivers 300 mg 4-05 mg by ity of tablet 18:42: mouth [place] [address] daily. Medical Branch lisinopriL Yes 10mg Take 10 mg U nivers 10 mg 4-05 by mouth ity of tablet 18:42: daily. [place] [address] Medical Branch furosemide Yes 20mg Take 20 mg U nivers (LASIX) 20 4-05 by mouth ity o f mg tablet 18:42: every [place] [address] morning Medical and Branch evening. potassium Yes 20meq Take 20 Univ ers chloride 20 4-05 mEq by ity of mEq packet 18:42: mouth 2 [place] (two) Medical times Branch daily. potassium Yes 20meq Take 20 Univ ers chloride 20 4-05 mEq by ity of mEq packet 18:42: mouth 2 [place] (two) Medical times Branch daily. potassium Yes 20meq Take 20 Univ ers chloride 20 4-05 mEq by ity of mEq packet 18:42: mouth 2 [place] 37 (two) Medical times Branch daily. Vital Signs Vital Name Observation Time Observation Value Comments Source HEIGHT 2020-10-06 05:48:00 167.6 cm WEIGHT 2020-10-06 05:48:00 97.024 kg WEIGHT 2021-07-11 04:00:00 88.4 kg WEIGHT 2021-07-10 05:32:00 90.9 kg WEIGHT 2021-07-09 04:00:00 92.5 kg HEIGHT 2021-07-06 17:53:00 167.6 cm WEIGHT 2021-07-06 17:53:00 96.2 kg WEIGHT 2021-07-11 04:00:00 88.4 kg WEIGHT 2021-07-10 05:32:00 90.9 kg WEIGHT 2021-07-09 04:00:00 92.5 kg HEIGHT 2021-07-06 17:53:00 167.6 cm WEIGHT 2021-07-06 17:53:00 96.2 kg Systolic blood 2020-12-29 15:09:00 131 mm[Hg] Univer sity of pressure [facility] Diastolic blood 2020-12-29 15:09:00 67 mm[Hg] Unive rsity of pressure [facility] Heart rate 2020-12-29 15:09:00 78 /min [facility] Respiratory rate 2020-12-29 15:09:00 10 /min [facility] ersity of [facility] Branch Oxygen saturation in 2020-12-29 15:09:00 95 /min University of Arterial blood by [facility] Pulse oximetry Branch Body temperature 2020-12-29 14:22:00 36.11 Vy [facility] ersity of [place] [facility] Body height 2020-12-26 18:30:00 167.6 cm Universi ty of [place] [facility] Body weight 2020-12-26 18:30:00 97.977 kg Universi ty of [place] [facility] BMI 2020-12-26 18:30:00 34.86 kg/m2 Universi ty of [facility] Branch Systolic blood 2020-12-29 15:09:00 131 mm[Hg] Univer sity of pressure [facility] Diastolic blood 2020-12-29 15:09:00 67 mm[Hg] Unive rsity of pressure [facility] Heart rate 2020-12-29 15:09:00 78 /min Universi ty of [facility] Respiratory rate 2020-12-29 15:09:00 10 /min [facility] ersity of [facility] Oxygen saturation in 2020-12-29 15:09:00 95 /min University of Arterial blood by [facility] [place] richard Pulse oximetry Branch Body temperature 2020-12-29 14:22:00 36.11 [facility] ersity of [facility] Body height 2020-12-26 18:30:00 167.6 cm Universi ty of [place] [facility] [place] Body weight 2020-12-26 18:30:00 97.977 kg Universi ty of [place] [facility] BMI 2020-12-26 18:30:00 34.86 kg/m2 Universi ty of [place] [facility] HEIGHT 2020-12-17 13:01:00 167.6 cm WEIGHT 2020-12-17 13:01:00 95.709 kg HEIGHT 2020-12-17 13:01:00 167.6 cm WEIGHT 2020-12-17 13:01:00 95.709 kg HEIGHT 2020-10-03 07:19:00 167.6 cm WEIGHT 2020-10-03 07:19:00 97.433 kg HEIGHT 2020-10-03 07:19:00 167.6 cm WEIGHT 2020-10-03 07:19:00 97.433 kg WEIGHT 2020-09-12 07:23:00 95.8 kg HEIGHT 2020-09-12 07:23:00 167.6 cm WEIGHT 2020-09-12 07:23:00 95.8 kg HEIGHT 2020-09-12 07:23:00 167.6 cm Procedures Procedure Date / Time Performing Source Performed Clinician [id number] 2021-08-28 BURDA.06 [facility] 00:[facility] [id number] 2021-08-28 BURDA.06 [facility] 00:00:00 [facility] [id number] 2021-08-28 BURDA.06 [facility] 00:00:00 [facility] [place] [id number] 2021-08-28 BURDA.06 [facility] 00:00:00 [facility] ANOSCOPY 2020-12-29 Bishnu [facility] xa 13:20:00 Medical Branch HEMORRHOIDECTOMY 2020-12-29 Bishnu [facility] [place] 13:20:00 Medical Branch EXAM UNDER ANESTHESIA 2020-12-29 Bishnu [facility] 13:20:00 Medical Branch PROCTOSIGMOIDOSCOPY 2020-12-29 Bishnu [facility] 13:20:00 Medical Branch PATIENT QUESTIONNAIRE 2020-12-29 Doctor Long, [facility] 05:01:00 [place] [facility] XR CHEST 2 VW 2020-12-28 Bishnu [facility] [place] 15:39:19 Medical Branch NOTICE OF BILLING PRACTICES 2020-12-28 Doctor Long, [facility] FOR MEDICARE PATIENTS 14:56:44 [place] [facility] PATIENT FINANCIAL POLICY 2020-12-28 Doctor Ethan [facility] 14:56:17 [place] [facility] NO SHOW OR MISSED APPOINTMENT 2020-12-28 Doctor Ethan [facility] POLICY ACKNOWLEDGEMENT 14:56:01 [place] [facility] ranch NOTICE OF PRIVACY PRACTICES 2020-12-28 Doctor Ethan, [facility] 14:55:46 [place] [facility] CONSENT/REFUSAL FOR DIAGNOSIS 2020-12-28 Doctor Long [facility] AND TREATMENT 14:55:13 [place] [facility] CONSENT/REFUSAL FOR DIAGNOSIS 2020-12-28 Doctor Ethan [facility] AND TREATMENT 14:55:13 [place] [facility] ASSIGNMENT OF BENEFITS 2020-12-28 Doctor Unassigned, [facility] 14:54:52 [place] [facility] ASSIGNMENT OF BENEFITS 2020-12-28 Doctor Unassigned, [facility] 14:54:52 [place] [facility] ASSIGNMENT OF BENEFITS 2020-12-28 Doctor Unassigned, [facility] 14:54:35 [place] [facility] ASSIGNMENT OF BENEFITS 2020-12-28 Doctor Unassigned, [facility] 14:54:35 [place] [facility] DSU PRE-OP 2020-12-23 Doctor Unassigned, [facility] 05:01:00 [place] [facility] DSU PRE-OP 2020-12-23 Doctor Unassigned, [facility] 05:01:00 [place] [facility] Encounters Start End Encounter Admission Attending Care Care Encounter Source Date/Time Date/Time Type Type Clinicians Facility Department ID 2021-10-[address] [facility] [id number] 12:47:14 [id number] [facility] 2021-10-[address] [facility] [id number] 12:45:46 [id number] [facility] 2021-09-19 [id number] 09:00:00 Zhao [id number] [facility] 2021-07-23 Outpatient Bryant GOETZ [facility] [id number] Univers 11:15:16 TATE vazquez [facility] 2021-06-30 Outpatient XANDER BUCKNER Surgery [id number] SLE 21:55:24 2021-06-30 Outpatient XANDER GUARDADO Surgery [id number] SLE 20:14:09 2021-11-20 2021-11-20 Outpatient GONZALEZ Adams [facility] INTM.01 [id number] [facility] 07:25:00 18:47:00 Zhao [id number] [facility] 2021-11-20 2021-11-20 Outpatient GONZALEZ Adams [facility] INTM.01 [id number] [facility] 07:25:00 18:47:00 Zhao 34 [facility] 2021-10-02 2021-10-02 Outpatient GONZALEZ FONTANEZ [facility] [id number] [facility] 14:41:06 23:59:00 MIHIR DUNAWAY 2021-08-28 2021-08-28 Inpatient GONZALEZ Adams [facility] CAT [id number] [facility] 15:56:00 20:15:00 Zhao [id number] [facility] 2021-08-25 2021-08-25 Outpatient UNKNOWN HCACL LABO [id number] [facility] 16:11:00 16:11:00 [id number] [facility] 2021-08-14 2021-08-14 Outpatient GONZALEZ Adams [facility] DAYS [id number] [facility] 01:08:00 01:08:00 Zhao [id number] [facility] 2021-07-06 2021-07-12 Inpatient ER JAYLONALMITA, [facility] [id number] [facility] 17:36:00 12:37:00 ISSAC Quinones 2021-05-02 2021-05-02 Outpatient GONZALEZ FONTANEZ [facility] [id number] [facility] 15:24:03 23:59:00 MIHIR DUNAWAY 2021-02-08 2021-02-08 Outpatient HUSEYIN [facility] [id number] [facility] 00:00:00 00:00:00 MIHIR DUNAWAY 2021-02-08 2021-02-08 Outpatient GONZALEZ FONTANEZ [facility] [id number] SLE 00:00:00 00:00:00 MIHIR DUNAWAY 2021-01-24 2021-01-[address] [facility] [id number] [facility] 2021-01-02 2021-01-[address] [facility] [id number] [facility] 2020-12-29 2020-12-29 [facility] [id number] Univers 07:04:00 10:48:00 Encounter Tate Grissom [id number] [id number] [id number] [facility] 071 Branch 2020-12-29 2020-12-29 Surgery [facility] [id number] Univers 08:30:00 10:16:00 Tate Grissom [id number] i ty of [place] [id number] [id number] [facility] 020 Branch 2020-12-29 2020-12-29 Orders Doctor XANDER [id number] Univers 00:00:00 00:00:00 Only Unassigned, MARIA TERESA [id number] ity of [place] [facility] [id number] Reji as [id number] [facility] 009 Branch 2020-12-28 2020-12-28 [facility] [id number] Univers 09:55:49 23:59:00 Encounter Tate Grissom [id number] it[place] [id number] [id number] [facility] 807 Branch 2020-12-28 2020-12-28 Laboratory Only, Adc Test [facility] [id number]. [id number] Univers 09:56:21 10:11:21 Only Tate Goetz [id number] ity [place] [id number] [id number] [facility] 353 Branch 2020-12-28 2020-12-28 V[facility]er [facility] [place], Adc Lab Main [facility] [id number] Univers 09:56:07 10:11:07 Visit Tate Goetz [id number] ity [place] [id number] [facility] [id number] [facility] 2020-12-28 2020-12-28 Outpatient Bryant GOETZ [facility] [id number] Univers 00:00:00 00:00:00 TATE vazquez of [facility] 2020-12-19 2020-12-19 Outpatient [facility]LMLC [facility] [id number] [facility] 2020-12-17 2020-12-17 Emergency ER [facility] Emergency [id number] SLE 12:47:00 12:47:00 2020-12-15 2020-12-15 Outpatient GONZALEZ FONTANEZ [facility] [id number] SLE 00:00:00 00:00:00 MIHIR DUNAWAY 2020-11-29 2020-11-29 Outpatient GONZALEZ FONTANEZ [facility] [id number] SLE 00:00:00 00:00:00 MIHIR DUNAWAY 2020-10-03 2020-10-03 Outpatient [facility] [id number] SLE 00:00:00 00:00:00 2020-09-12 2020-09-12 Outpatient GONZALEZ [facility] [id number] SLE 00:00:00 00:00:00 2020-07-19 2020-07-20 Outpatient nullFlavo MNA [id number] [facility] 13:15:00 04:59:59 r Neurology 04 l [place] [facility] 2020-07-20 2020-07-20 Ambulatory nullFlavo MNA [id number] [facility] 01:15:00 01:15:00 Pre-Reg r Neurology 03 l [place] [facility] 2018-09-02 2018-09-02 Outpatient GONZALEZ FONTANEZ [facility] [id number] SLE 00:00:00 00:00:00 MIHIR DUNAWAY Results Test Description Test Time Test Comments Results Result Comments Source GLUBED 2021-11-20 14:53:00 Test Item Value Reference Range Interpretation Comme nts GLUBED (test code = GLUBED) 89 MG/DL 70-105 N CBC W/AUTO [id number] 13:53:00 Test Item Value Reference Range Interpretation Comments WHITE BLOOD CELL (test code = 5.2 x10 3/uL 4.8-10.8 N WBC) RED BLOOD CELL (test code = 4.20 x10 6/uL 4.70-6.10 L RBC) HEMOGLOBIN (test code = HGB) 11.1 g/dL 14.0-18.0 L HEMATOCRIT (test code = HCT) 36.8 % 42.0-52.0 L MEAN CELL VOLUME (test code = 87.6 fL 80.0-94.0 N MCV) MEAN CELL HGB (test code = MCH) 26.4 pg 27-31 L MEAN CELL HGB CONCENTRATION 30.2 G/DL 33-36.5 L (test code = MCHC) RED CELL DISTRIBUTION WIDTH 21.2 % 12.9-16.9 H (test code = RDW) PLATELET COUNT (test code = 198 x10 3/uL 150-440 N PLT) MEAN PLATELET VOLUME (test code 10.4 fL 8.9-12.4 N = MPV) NEUTROPHIL % (test code = NT%) 64.8 % 42.2-75.2 N LYMPHOCYTE % (test code = LY%) 23.5 % 20.5-51.1 N MONOCYTE % (test code = MO%) 9.2 % 1.7-9.3 N EOSINOPHIL % (test code = EO%) 1.9 % 0.0-7.0 N BASOPHIL % (test code = BA%) 0.4 % 0-2.5 N NEUTROPHIL # (test code = NT#) 3.39 x10 3/uL 1.80-7.70 N LYMPHOCYTE # (test code = LY#) 1.23 x10 3/uL 1.00-4.80 N MONOCYTE # (test code = MO#) 0.48 x10 3/uL 0.00-0.80 N EOSINOPHIL # (test code = EO#) 0.10 x10 3/uL 0.00-0.45 N BASOPHIL # (test code = BA#) 0.02 x10 3/uL 0.0-0.20 N COVID 19 Asymptomatic IH [id number] 13:38:00 Test Item Value Reference Range Interpretation Comments COVID 19 NEGATIVE NEGATIVE Negative result s, from Asymptomatic IH AG patients with symptom (test code = onset beyondfiv e days, COVNONPUIAG) should be treat ed as presumptive and confirmationwit h a molecular assay , if necessary for patientmanageme nt, may be performed. Nega tive results do not ruleout COVID-19 and sh ould not be used as the sole basis fortreatment or patient management deci sions, includinginfect ion control decisio ns. Negative result s should beconsidered in the context of a pa tient's recent exposure s,history and the presenc e of clinical signs and symptomsconsist ent with COVID-19. COMPREHENSIVE METABOLIC [id number] 13:36:00 Test Item Value Reference Range Interpretation Comments SODIUM (test code = 141 mmol/L 136-145 N Please n ote: New NA) Reference Range Oct 2020 POTASSIUM (test code 4.5 mmol/L 3.5-5.1 N = K) CHLORIDE (test code = 107 mmol/L 98-107 N Please note: New CL) Reference Range Oct 2020 CARBON DIOXIDE (test 30 mmol/L 20-31 N Please note: New code = CO2) Reference Range Oct 2020 GLUCOSE (test code = 104 mg/dL 74-106 N Please note: New GLU) Reference Range Oct 2020 BLOOD UREA NITROGEN 21 mg/dL 9-23 N Please n ote: New (test code = BUN) Reference Range Oct 2020 GLOMERULAR FILTRATION 57 mL/min >60 L Units are RATE (test code = mL/min/1.7 3m2 The GFR) estimated glome rular filtration rate is computed usingp atient race, age (>18) , sex, and serum creat inine. If anyof the ne eded data elements a re missing the Lab oratory cannot compute an estimation of t he glomerular filt ration rate. CREATININE (test code 1.30 mg/dL 0.70-1.30 N Please note: New = CREAT) Reference Range Oct 2020 TOTAL PROTEIN (test 6.5 g/dL 5.7-8.2 N Please n ote: New code = PROT) Reference Range Oct 2020 ALBUMIN (test code = 3.8 g/dL 3.2-4.8 N Please note: New ALB) Reference Range Oct 2020 CALCIUM (test code = 8.4 mg/dL 8.7-10.4 L Please note: New CA) Reference Range Oct 2020 BILIRUBIN TOTAL (test 1.4 mg/dL 0.3-1.2 H Please note: New code = BILT) Reference Range Oct 2020 SGOT/AST (test code = 24 U/L <34 N Please note: New AST) Reference Range Oct 2020 SGPT/ALT (test code = 21 U/L 10-49 N Please note: New ALT) Reference Range Oct 2020 ALKALINE PHOSPHATASE 212 U/L 46-116 H Please note: New (test code = ALKP) Reference Range Oct 2020 RAD, CHEST, 2 [id number] 16:15:00Reason for Exam:->Coronary atherosclerosisCHI ADVENTIST HEALTH VALLEJOName: CAREY MARTIN : 1945 Sex: MFINAL REPORT Exam: RAD, CHEST, 2 VIEWSDate: 10/02/2021 4:14 PM Indicati on: Coronary artery disease Comparison: Chest radiograph 07/11/2021 FINDINGS: Lines/Tubes:Left chestpacemaker. Lungs:The lungs are hyperinflated. No focal consolidation or pulmonary edema. Pleura:Trace right pleural effusion. No pneumothorax. Heart/Mediastinum:Cardiomediastinal silhouette is stably enlarged. Postoperative findings of CABG. Bones/Soft Tissues: No acute osseous injury. Sternotomy wires unchanged. Abdomen: No free air below the diaphragm. IMPRESSION:Unchanged cardiomegaly and trace right pleural effusion. No focal pneumonia or airspace edema. Signed: Maxwell Viramontes MDReport Verified Date/Time: 10/02/2021 16:15:45 COAGULATION TIME [id number] 13:44:00 Test Item Value Reference Range Interpretation Comments COAGULATION TIME ACTIVATED (test 323 SECONDS 74-137 H code = ACT) COAGULATION TIME [id number] 13:12:00 Test Item Value Reference Range Interpretation Comments COAGULATION TIME ACTIVATED (test 312 SECONDS 74-137 H code = ACT) COAGULATION TIME [id number] 12:47:00 Test Item Value Reference Range Interpretation Comments COAGULATION TIME ACTIVATED (test 329 SECONDS 74-137 H code = ACT) COAGULATION TIME [id number] 12:31:00 Test Item Value Reference Range Interpretation Comments COAGULATION TIME ACTIVATED (test 329 SECONDS 74-137 H code = ACT) COAGULATION TIME [id number] 12:17:00 Test Item Value Reference Range Interpretation Comments COAGULATION TIME ACTIVATED (test 279 SECONDS 74-137 H code = ACT) Novel Coronavirus 09:27:00 Test Item Value Reference Range Interpretation Comments Novel Coronavirus Negative Negative Positive r esults are 2019 Inhouse (test indicativ e of the presence code = [id number]) ofSARS-CoV -2 RNA, clinical correlation wit h patient historyand othe r diagnostic info rmation is necessary to determinepatien t infection status. Positiv e results do not rule out bacterial infection or co -infection with other viru ses. Negative result s do not preclude SARS-C oV-2 infection andsh ould not be used as the alexandrea e basis for patient managementdecis ions. Negative result s must be combined with otherclinical observations, p atient history, and epidemiological information . Detection of SARS-CoV-2 RNA may be affe cted bysample collec tion methods, storag e conditions, and /or stageof infection. Florence l RNA mutations, vacc inations, antiviraltherap eutics, antibiotics, chemotherapeuti c orimmunosuppres willie drugs have not been e valuated for effectson d etection. Results are for the identification of SARS-CoV-2 RNA usingreal-time (RT) polymerase faith n reaction (PCR) technolog yfor the qualitative det ection of nucleic acids f rom [id number] v irus and diagnosis of SA RS-CoV-2 virusinfection. It is an Emergency Use Authorization ( EUA) testauthorized by the U.S. FDA. First test? UnknownEmployed in Healthcare? UnknownSymptomatic as defined by CDC? UnknownHospitalizeddue to COVID? UnknownIn ICU due to COVID? UnknownResident in a congregate care setting? Unknown? UnknownAge at collection: Sharron Coronavirus 09:26:00 Test Item Value Reference Range Interpretation Comments Novel Coronavirus Negative Negative Positive r esults are 2019 Inhouse (test indicativ e of the presence code = [id number]) ofSARS-CoV -2 RNA, clinical correlation wit h patient historyand othe r diagnostic info rmation is necessary to determinepatien t infection status. Positiv e results do not rule out bacterial infection or co -infection with other viru ses. Negative result s do not preclude SARS-C oV-2 infection andsh ould not be used as the alexandrea e basis for patient managementdecis ions. Negative result s must be combined with otherclinical observations, p atient history, and epidemiological information . Detection of SARS-CoV-2 RNA may be affe cted bysample collec tion methods, storag e conditions, and /or stageof infection. Florence l RNA mutations, vacc inations, antiviraltherap eutics, antibiotics, chemotherapeuti c orimmunosuppres willie drugs have not been e valuated for effectson d etection. Results are for the identification of SARS-CoV-2 RNA usingreal-time (RT) polymerase faith n reaction (PCR) technolog yfor the qualitative det ection of nucleic acids f rom [id number] v irus and diagnosis of SA RS-CoV-2 virusinfection. It is an Emergency Use Authorization ( EUA) testauthorized by the U.S. FDA. First test? UnknownEmployed in Healthcare? UnknownSymptomatic as defined by CDC? UnknownHospitalizeddue to COVID? UnknownIn ICU due to COVID? UnknownResident in a congregate care setting? Unknown? UnknownAge at collection: Y COMPREHENSIVE METABOLIC [id number] 13:37:00 Test Item Value Reference Range Interpretation Comments SODIUM (test code = 143 mmol/L 136-145 N Please n ote: New NA) Reference Range Oct 2020 POTASSIUM (test 4.0 mmol/L 3.5-5.1 N code = K) CHLORIDE (test code 110 mmol/L 98-107 H Please n ote: New = CL) Reference Range Oct 2020 CARBON DIOXIDE 24 mmol/L 20-31 N Please note: New (test code = CO2) Reference Range Oct 2020 GLUCOSE (test code 115 mg/dL 74-106 H Please no te: New = GLU) Reference Range Oct 2020 BLOOD UREA NITROGEN 23 mg/dL 9-23 N Please n ote: New (test code = BUN) Reference Range Oct 2020 GLOMERULAR >=60 max >60 Units are FILTRATION RATE estimate mL/min mL/min/1. 73m2 The (test code = GFR) estimated glomerular filtration rate is computed usingpatient ra ce, age (>18), sex, and serum creatinin e. If anyof the ne eded data elements a re missing the Laboratory yoseph ot compute an estimation of t he glomerular filtration rate . CREATININE (test 0.90 mg/dL 0.70-1.30 N Please note : New code = CREAT) Reference Rang e Oct 2020 TOTAL PROTEIN (test 6.5 g/dL 5.7-8.2 N Please n ote: New code = PROT) Reference Range Oct 2020 ALBUMIN (test code 4.5 g/dL 3.2-4.8 N Please no te: New = ALB) Reference Range Oct 2020 CALCIUM (test code 8.5 mg/dL 8.7-10.4 L Please no te: New = CA) Reference Range Oct 2020 BILIRUBIN TOTAL 1.2 mg/dL 0.3-1.2 N Please note: New (test code = BILT) Reference Range Oct 2020 SGOT/AST (test code 20 U/L <34 N Please n ote: New = AST) Reference Range Oct 2020 SGPT/ALT (test code 16 U/L 10-49 N Please n ote: New = ALT) Reference Range Oct 2020 ALKALINE 140 U/L 46-116 H Please note: Ne w PHOSPHATASE (test Reference Range Feb code = ALKP) 2020 CBC W/AUTO [id number] 13:27:00 Test Item Value Reference Range Interpretation Comments WHITE BLOOD CELL (test code = 5.3 x10 3/uL 4.8-10.8 N WBC) RED BLOOD CELL (test code = 4.28 x10 6/uL 4.70-6.10 L RBC) HEMOGLOBIN (test code = HGB) 11.3 g/dL 14.0-18.0 L HEMATOCRIT (test code = HCT) 36.7 % 42.0-52.0 L MEAN CELL VOLUME (test code = 85.7 fL 80.0-94.0 N MCV) MEAN CELL HGB (test code = MCH) 26.4 pg 27-31 L MEAN CELL HGB CONCENTRATION 30.8 G/DL 33-36.5 L (test code = MCHC) RED CELL DISTRIBUTION WIDTH 17.4 % 12.9-16.9 H (test code = RDW) PLATELET COUNT (test code = 178 x10 3/uL 150-440 N PLT) MEAN PLATELET VOLUME (test code 11.5 fL 8.9-12.4 N = MPV) NEUTROPHIL % (test code = NT%) 63.3 % 42.2-75.2 N LYMPHOCYTE % (test code = LY%) 25.9 % 20.5-51.1 N MONOCYTE % (test code = MO%) 8.1 % 1.7-9.3 N EOSINOPHIL % (test code = EO%) 1.9 % 0.0-7.0 N BASOPHIL % (test code = BA%) 0.6 % 0-2.5 N NEUTROPHIL # (test code = NT#) 3.35 x10 3/uL 1.80-7.70 N LYMPHOCYTE # (test code = LY#) 1.37 x10 3/uL 1.00-4.80 N MONOCYTE # (test code = MO#) 0.43 x10 3/uL 0.00-0.80 N EOSINOPHIL # (test code = EO#) 0.10 x10 3/uL 0.00-0.45 N BASOPHIL # (test code = BA#) 0.03 x10 3/uL 0.0-0.20 N COMPREHENSIVE METABOLIC [id number] 14:09:00 Test Item Value Reference Range Interpretation Comments SODIUM (test code = 139 mmol/L 136-145 N Please n ote: New NA) Reference Range Oct 2020 POTASSIUM (test 4.3 mmol/L 3.5-5.1 N code = K) CHLORIDE (test code 105 mmol/L 98-107 N Please n ote: New = CL) Reference Range Oct 2020 CARBON DIOXIDE 25 mmol/L 20-31 N Please note: New (test code = CO2) Reference Range Oct 2020 GLUCOSE (test code 110 mg/dL 74-106 H Please no te: New = GLU) Reference Range Oct 2020 BLOOD UREA NITROGEN 29 mg/dL 9-23 H Please n ote: New (test code = BUN) Reference Range Oct 2020 GLOMERULAR >=60 max >60 Units are FILTRATION RATE estimate mL/min mL/min/1. 73m2 The (test code = GFR) estimated glomerular filtration rate is computed usingpatient ra ce, age (>18), sex, and serum creatinin e. If anyof the ne eded data elements a re missing the Laboratory yoseph ot compute an estimation of t he glomerular filtration rate . CREATININE (test 1.10 mg/dL 0.70-1.30 N Please note : New code = CREAT) Reference Rang e Oct 2020 TOTAL PROTEIN (test 7.1 g/dL 5.7-8.2 N Please n ote: New code = PROT) Reference Range Oct 2020 ALBUMIN (test code 4.6 g/dL 3.2-4.8 N Please no te: New = ALB) Reference Range Oct 2020 CALCIUM (test code 8.3 mg/dL 8.7-10.4 L Please no te: New = CA) Reference Range Oct 2020 BILIRUBIN TOTAL 1.1 mg/dL 0.3-1.2 N Please note: New (test code = BILT) Reference Range Oct 2020 SGOT/AST (test code 25 U/L <34 N Please n ote: New = AST) Reference Range Oct 2020 SGPT/ALT (test code 20 U/L 10-49 N Please n ote: New = ALT) Reference Range Oct 2020 ALKALINE 127 U/L 46-116 H Please note: Ne w PHOSPHATASE (test Reference Range Feb code = ALKP) 2020 CBC W/AUTO [id number] 13:50:00 Test Item Value Reference Range Interpretation Comments WHITE BLOOD CELL (test code = 6.7 x10 3/uL 4.8-10.8 N WBC) RED BLOOD CELL (test code = 4.60 x10 6/uL 4.70-6.10 L RBC) HEMOGLOBIN (test code = HGB) 12.3 g/dL 14.0-18.0 L HEMATOCRIT (test code = HCT) 40.2 % 42.0-52.0 L MEAN CELL VOLUME (test code = 87.4 fL 80.0-94.0 N MCV) MEAN CELL HGB (test code = MCH) 26.7 pg 27-31 L MEAN CELL HGB CONCENTRATION 30.6 G/DL 33-36.5 L (test code = MCHC) RED CELL DISTRIBUTION WIDTH 17.5 % 12.9-16.9 H (test code = RDW) PLATELET COUNT (test code = 196 x10 3/uL 150-440 N PLT) MEAN PLATELET VOLUME (test code 11.3 fL 8.9-12.4 N = MPV) NEUTROPHIL % (test code = NT%) 66.0 % 42.2-75.2 N LYMPHOCYTE % (test code = LY%) 23.0 % 20.5-51.1 N MONOCYTE % (test code = MO%) 8.5 % 1.7-9.3 N EOSINOPHIL % (test code = EO%) 1.8 % 0.0-7.0 N BASOPHIL % (test code = BA%) 0.3 % 0-2.5 N NEUTROPHIL # (test code = NT#) 4.44 x10 3/uL 1.80-7.70 N LYMPHOCYTE # (test code = LY#) 1.55 x10 3/uL 1.00-4.80 N MONOCYTE # (test code = MO#) 0.57 x10 3/uL 0.00-0.80 N EOSINOPHIL # (test code = EO#) 0.12 x10 3/uL 0.00-0.45 N BASOPHIL # (test code = BA#) 0.02 x10 3/uL 0.0-0.20 N POCT-GLUCOSE [id number] 08:02:18 Test Item Value Reference Range Interpretation Comments POC-GLUCOSE METER 120 mg/dL 70-110 H : TESTED A T [facility] 6720 (BEAKER) (test code = ELÍASKEISHA Hurtado [facility], 1538) [id number]: Machine Room Engineer/Techni jonny ID = [id number] for Ritchie Juarez RAD, CHEST, 1 VIEW, NON [id number] 06:13:00Reason for exam:->s/p PPMShould this be performed at the bedside?->[facility] : 1945 Sex: MFINAL REPORT RAD, CHEST, 1 VIEW, NON DEPT INDICATION: s/p PPM COMPARIS ON: 05/02/2021 FINDINGS: Portable frontal view of the chest. IMPRESSION: Left chest pacer device with leads over the right atrium and right ventricle. Median sternotomy wires are present. Stable cardiomegaly. Atrial appendage closure device present. No focal lung consolidation, pneumothorax or significant pleural effusion. Stable osseous structures. Signed: Davy Carreon MDReport Verified Date/Time: 07/12/2021 06:13:39 [id number] 06:04:19 Test Item Value Reference Range Interpretation Comments PHOSPHORUS (BEAKER) (test code = 4.6 mg/dL 2.3-4.7 604) Machine Room Engineer ID - [id number] 06:04:18 Test Item Value Reference Range Interpretation Comments MAGNESIUM (BEAKER) (test code = 1.9 mg/dL 1.6-2.6 627) Machine Room Engineer ID - BSCOMPREHENSIVE METABOLIC [id number] 06:04:16 Test Item Value Reference Range Interpretation Comments TOTAL PROTEIN 7.0 gm/dL 6.0-8.3 (BEAKER) (test code = 770) ALBUMIN (BEAKER) 3.7 g/dL 3.5-5.0 (test code = 1145) ALKALINE PHOSPHATASE 154 U/L 40-150 H (BEAKER) (test code = 346) BILIRUBIN TOTAL 1.3 mg/dL 0.2-1.2 H (BEAKER) (test code = 377) SODIUM (BEAKER) (test 136 meq/L 136-145 code = 381) POTASSIUM (BEAKER) 4.0 meq/L 3.5-5.1 (test code = 379) CHLORIDE (BEAKER) 104 meq/L 98-107 (test code = 382) CO2 (BEAKER) (test 23 meq/L 22-29 code = 355) BLOOD UREA NITROGEN 15 mg/dL 7-21 (BEAKER) (test code = 354) CREATININE (BEAKER) 0.81 mg/dL 0.57-1.25 (test code = 358) GLUCOSE RANDOM 114 mg/dL 70-105 H (BEAKER) (test code = 652) CALCIUM (BEAKER) 8.5 mg/dL 8.4-10.2 (test code = 697) AST (SGOT) (BEAKER) 31 U/L 5-34 (test code = 353) ALT (SGPT) (BEAKER) 17 U/L 6-55 (test code = 347) EGFR (BEAKER) (test 93 mL/min/1.73 ESTIMA AUTUMN GFR IS code = 1092) sq m NOT ACCURATE CREATININE CLEARANCE IN PREDICTING GLOMERULAR FILTRATION RATE . ESTIMATED GFR I S NOT APPLICABLE FOR DIALYSIS PATIEN TS. Machine Room Engineer ID - BSPOCT-GLUCOSE [id number] 22:11:17 Test Item Value Reference Range Interpretation Comments POC-GLUCOSE METER 146 mg/dL 70-110 H : TESTED A T [facility] 6720 ([facility] (test code = [place], 153) [address]: Machine Room Engineer/Techni jonny ID = [id number] for UG ORJI, GALO POCT-GLUCOSE [id number] 16:54:57 Test Item Value Reference Range Interpretation Comments POC-GLUCOSE METER 79 mg/dL 70-110 : TESTED A T [facility] 67[address] ([employer]) (test code = [place], 1538) [address]: Machine Room Engineer/Techni jonny ID = [id number] for Medi na, Cheli POCT-GLUCOSE [id number] 10:58:25 Test Item Value Reference Range Interpretation Comments POC-GLUCOSE METER 102 mg/dL 70-110 : TESTED A T [facility] 6720 ([email or web address]) (test code = [place], 1538) [address]: Machine Room Engineer/Techni jonny ID = [id number] for AG UILAR, MARIA ALEJANDRA [id number] 05:18:57 Test Item Value Reference Range Interpretation Comments MAGNESIUM (BEAKER) (test code = 2.0 mg/dL 1.6-2.6 627) Machine Room Engineer ID - LEONARD [id number] 05:18:57 Test Item Value Reference Range Interpretation Comments PHOSPHORUS (BEAKER) (test code = 4.3 mg/dL 2.3-4.7 604) Machine Room Engineer ID - LEONARD LCOMPREHENSIVE METABOLIC [id number] 05:18:56 Test Item Value Reference Range Interpretation Comments TOTAL PROTEIN 7.1 gm/dL 6.0-8.3 (BEAKER) (test code = 770) ALBUMIN (BEAKER) 3.7 g/dL 3.5-5.0 (test code = 1145) ALKALINE PHOSPHATASE 153 U/L 40-150 H (BEAKER) (test code = 346) BILIRUBIN TOTAL 1.5 mg/dL 0.2-1.2 H (BEAKER) (test code = 377) SODIUM (BEAKER) (test 134 meq/L 136-145 L code = 381) POTASSIUM (BEAKER) 4.1 meq/L 3.5-5.1 (test code = 379) CHLORIDE (BEAKER) 103 meq/L 98-107 (test code = 382) CO2 (BEAKER) (test 22 meq/L 22-29 code = 355) BLOOD UREA NITROGEN 14 mg/dL 7-21 (BEAKER) (test code = 354) CREATININE (BEAKER) 0.86 mg/dL 0.57-1.25 (test code = 358) GLUCOSE RANDOM 109 mg/dL 70-105 H (BEAKER) (test code = 652) CALCIUM (BEAKER) 8.8 mg/dL 8.4-10.2 (test code = 697) AST (SGOT) (BEAKER) 28 U/L 5-34 (test code = 353) ALT (SGPT) (BEAKER) 17 U/L 6-55 (test code = 347) EGFR (BEAKER) (test 86 mL/min/1.73 ESTIMA AUTUMN GFR IS code = 1092) sq m NOT ACCURATE CREATININE CLEARANCE IN PREDICTING GLOMERULAR FILTRATION RATE . ESTIMATED GFR I S NOT APPLICABLE FOR DIALYSIS PATIEN TS. Machine Room Engineer ID - LEONARD LCBC W/PLT COUNT & AUTO [id number] 05:06:52 Test Item Value Reference Range Interpretation Comments WHITE BLOOD CELL COUNT (BEAKER) 5.9 K/ L 3.5-10.5 (test code = 775) RED BLOOD CELL COUNT (BEAKER) 4.44 M/ L 4.63-6.08 L (test code = 761) HEMOGLOBIN (BEAKER) (test code = 11.7 GM/DL 13.7-17.5 L 410) HEMATOCRIT (BEAKER) (test code = 38.7 % 40.1-51.0 L 411) MEAN CORPUSCULAR VOLUME (BEAKER) 87.2 fL 79.0-92.2 (test code = 753) MEAN CORPUSCULAR HEMOGLOBIN 26.4 pg 25.7-32.2 (BEAKER) (test code = 751) MEAN CORPUSCULAR HEMOGLOBIN CONC 30.2 GM/DL 32.3-36.5 L (BEAKER) (test code = 752) RED CELL DISTRIBUTION WIDTH 16.7 % 11.6-14.4 H (BEAKER) (test code = 412) PLATELET COUNT (BEAKER) (test 189 K/CU MM 150-450 code = 756) MEAN PLATELET VOLUME (BEAKER) 10.3 fL 9.4-12.4 (test code = 754) NUCLEATED RED BLOOD CELLS 0 /100 WBC 0-0 (BEAKER) (test code = 413) NEUTROPHILS RELATIVE PERCENT 55 % (BEAKER) (test code = 429) LYMPHOCYTES RELATIVE PERCENT 33 % (BEAKER) (test code = 430) MONOCYTES RELATIVE PERCENT 8 % (BEAKER) (test code = 431) EOSINOPHILS RELATIVE PERCENT 3 % (BEAKER) (test code = 432) BASOPHILS RELATIVE PERCENT 1 % (BEAKER) (test code = 437) NEUTROPHILS ABSOLUTE COUNT 3.24 K/ L 1.78-5.38 (BEAKER) (test code = 670) LYMPHOCYTES ABSOLUTE COUNT 1.95 K/ L 1.32-3.57 (BEAKER) (test code = 414) MONOCYTES ABSOLUTE COUNT (BEAKER) 0.48 K/ L 0.30-0.82 (test code = 415) EOSINOPHILS ABSOLUTE COUNT 0.17 K/ L 0.04-0.54 (BEAKER) (test code = 416) BASOPHILS ABSOLUTE COUNT (BEAKER) 0.05 K/ L 0.01-0.08 (test code = 417) IMMATURE GRANULOCYTES-RELATIVE 0 % 0-1 PERCENT (BEAKER) (test code = 2801) POCT-GLUCOSE [id number] 20:28:10 Test Item Value Reference Range Interpretation Comments POC-GLUCOSE METER 110 mg/dL 70-110 : TESTED A T [facility] 6720 (BEAKER) (test code = [place], 1538) [id number]: Machine Room Engineer/Techni jonny ID = [id number] for Alonso duff (pca2)Maci POCT-GLUCOSE [id number] 16:32:08 Test Item Value Reference Range Interpretation Comments POC-GLUCOSE METER 102 mg/dL 70-110 : TESTED A T [facility] 6720 (BEAKER) (test code = [place], 1538) [address]: Machine Room Engineer/Techni jonny ID = [id number] for BE LL, BEAULA POCT-GLUCOSE [id number] 11:20:47 Test Item Value Reference Range Interpretation Comments POC-GLUCOSE METER 142 mg/dL 70-110 H : TESTED A T [facility] 6720 (BEAKER) (test code = [place], 1538) [address]: Machine Room Engineer/Techni jonny ID = [id number] for BE LL, BEAULA POCT-GLUCOSE [id number] 07:24:42 Test Item Value Reference Range Interpretation Comments POC-GLUCOSE METER 119 mg/dL 70-110 H : TESTED A T [facility] 6720 (BEAKER) (test code = [place], 1538) [address]: Machine Room Engineer/Techni jonny ID = [id number] for BE LL, BEAULA [id number] 06:18:47 Test Item Value Reference Range Interpretation Comments MAGNESIUM (BEAKER) (test code = 1.8 mg/dL 1.6-2.6 627) Machine Room Engineer ID - [id number] 06:18:47 Test Item Value Reference Range Interpretation Comments PHOSPHORUS (BEAKER) (test code = 4.2 mg/dL 2.3-4.7 604) Machine Room Engineer ID - EOCOMPREHENSIVE METABOLIC [id number] 06:18:46 Test Item Value Reference Range Interpretation Comments TOTAL PROTEIN 6.6 gm/dL 6.0-8.3 (BEAKER) (test code = 770) ALBUMIN (BEAKER) 3.4 g/dL 3.5-5.0 L (test code = 1145) ALKALINE PHOSPHATASE 132 U/L 40-150 (BEAKER) (test code = 346) BILIRUBIN TOTAL 1.5 mg/dL 0.2-1.2 H (BEAKER) (test code = 377) SODIUM (BEAKER) (test 140 meq/L 136-145 code = 381) POTASSIUM (BEAKER) 3.9 meq/L 3.5-5.1 (test code = 379) CHLORIDE (BEAKER) 107 meq/L 98-107 (test code = 382) CO2 (BEAKER) (test 23 meq/L 22-29 code = 355) BLOOD UREA NITROGEN 9 mg/dL 7-21 (BEAKER) (test code = 354) CREATININE (BEAKER) 0.74 mg/dL 0.57-1.25 (test code = 358) GLUCOSE RANDOM 114 mg/dL 70-105 H (BEAKER) (test code = 652) CALCIUM (BEAKER) 8.8 mg/dL 8.4-10.2 (test code = 697) AST (SGOT) (BEAKER) 27 U/L 5-34 (test code = 353) ALT (SGPT) (BEAKER) 16 U/L 6-55 (test code = 347) EGFR (BEAKER) (test 103 ESTIMATE D GFR IS code = 1092) mL/min/1.73 sq NOT ACCURA TE m CREATININE CLEARANCE IN PREDICTING GLOMERULAR FILTRATION RATE . ESTIMATED GFR I S NOT APPLICABLE FOR DIALYSIS PATIEN TS. Machine Room Engineer ID - [id number] 06:01:01 Test Item Value Reference Range Interpretation Comments PROTIME (BEAKER) (test 18.2 seconds 11.9-14.2 H code = 759) INR (BEAKER) (test 1.53 See_Comment [Automat ed code = 370) message] The sy stem which generated this result transmitted reference range : <=5.90. The reference range was not used to interpret this result as normal/abnormal . PARTIAL THROMBOPLASTIN 42.3 seconds 22.5-36.0 H TIME (BEAKER) (test code = 760) RECOMMENDED COUMADIN/WARFARIN INR THERAPY RANGESSTANDARD DOSE: 2.0 - 3.0 Includes: PROPHYLAXIS forvenous thrombosis, systemic embolization; TREATMENT for venous thrombosis and/or pulmonary embolus.HIGH RISK: Target INR is 2.5-3.5 for patients with mechanical heart valves.CBC W/PLT COUNT & AUTO DIFFERENTIAL 2021-07-10 05:43:55 Test Item Value Reference Range Interpretation Comments WHITE BLOOD CELL COUNT (BEAKER) 4.9 K/ L 3.5-10.5 (test code = 775) RED BLOOD CELL COUNT (BEAKER) 4.19 M/ L 4.63-6.08 L (test code = 761) HEMOGLOBIN (BEAKER) (test code = 11.1 GM/DL 13.7-17.5 L 410) HEMATOCRIT (BEAKER) (test code = 36.8 % 40.1-51.0 L 411) MEAN CORPUSCULAR VOLUME (BEAKER) 87.8 fL 79.0-92.2 (test code = 753) MEAN CORPUSCULAR HEMOGLOBIN 26.5 pg 25.7-32.2 (BEAKER) (test code = 751) MEAN CORPUSCULAR HEMOGLOBIN CONC 30.2 GM/DL 32.3-36.5 L (BEAKER) (test code = 752) RED CELL DISTRIBUTION WIDTH 16.6 % 11.6-14.4 H (BEAKER) (test code = 412) PLATELET COUNT (BEAKER) (test 184 K/CU MM 150-450 code = 756) MEAN PLATELET VOLUME (BEAKER) 10.7 fL 9.4-12.4 (test code = 754) NUCLEATED RED BLOOD CELLS 0 /100 WBC 0-0 (BEAKER) (test code = 413) NEUTROPHILS RELATIVE PERCENT 57 % (BEAKER) (test code = 429) LYMPHOCYTES RELATIVE PERCENT 31 % (BEAKER) (test code = 430) MONOCYTES RELATIVE PERCENT 8 % (BEAKER) (test code = 431) EOSINOPHILS RELATIVE PERCENT 3 % (BEAKER) (test code = 432) BASOPHILS RELATIVE PERCENT 1 % (BEAKER) (test code = 437) NEUTROPHILS ABSOLUTE COUNT 2.80 K/ L 1.78-5.38 (BEAKER) (test code = 670) LYMPHOCYTES ABSOLUTE COUNT 1.50 K/ L 1.32-3.57 (BEAKER) (test code = 414) MONOCYTES ABSOLUTE COUNT (BEAKER) 0.40 K/ L 0.30-0.82 (test code = 415) EOSINOPHILS ABSOLUTE COUNT 0.13 K/ L 0.04-0.54 (BEAKER) (test code = 416) BASOPHILS ABSOLUTE COUNT (BEAKER) 0.04 K/ L 0.01-0.08 (test code = 417) IMMATURE GRANULOCYTES-RELATIVE 0 % 0-1 PERCENT (BEAKER) (test code = 2801) POCT-GLUCOSE [id number] 23:30:18 Test Item Value Reference Range Interpretation Comments POC-GLUCOSE METER 99 mg/dL 70-110 : TESTED A T [facility] 6720 (BEAKER) (test code = [place], 1538) [address]: Machine Room Engineer/Techni jonny ID = [id number] for Eileen godinez ([email or web address])Maci CBC W/PLT COUNT & AUTO [id number] 05:45:41 Test Item Value Reference Range Interpretation Comments WHITE BLOOD CELL COUNT (BEAKER) 5.5 K/ L 3.5-10.5 (test code = 775) RED BLOOD CELL COUNT (BEAKER) 4.11 M/ L 4.63-6.08 L (test code = 761) HEMOGLOBIN (BEAKER) (test code = 10.8 GM/DL 13.7-17.5 L 410) HEMATOCRIT (BEAKER) (test code = 36.3 % 40.1-51.0 L 411) MEAN CORPUSCULAR VOLUME (BEAKER) 88.3 fL 79.0-92.2 (test code = 753) MEAN CORPUSCULAR HEMOGLOBIN 26.3 pg 25.7-32.2 (BEAKER) (test code = 751) MEAN CORPUSCULAR HEMOGLOBIN CONC 29.8 GM/DL 32.3-36.5 L (BEAKER) (test code = 752) RED CELL DISTRIBUTION WIDTH 17.0 % 11.6-14.4 H (BEAKER) (test code = 412) PLATELET COUNT (BEAKER) (test 169 K/CU MM 150-450 code = 756) MEAN PLATELET VOLUME (BEAKER) 10.8 fL 9.4-12.4 (test code = 754) NUCLEATED RED BLOOD CELLS 0 /100 WBC 0-0 (BEAKER) (test code = 413) NEUTROPHILS RELATIVE PERCENT 60 % (BEAKER) (test code = 429) LYMPHOCYTES RELATIVE PERCENT 28 % (BEAKER) (test code = 430) MONOCYTES RELATIVE PERCENT 9 % (BEAKER) (test code = 431) EOSINOPHILS RELATIVE PERCENT 2 % (BEAKER) (test code = 432) BASOPHILS RELATIVE PERCENT 1 % (BEAKER) (test code = 437) NEUTROPHILS ABSOLUTE COUNT 3.27 K/ L 1.78-5.38 (BEAKER) (test code = 670) LYMPHOCYTES ABSOLUTE COUNT 1.54 K/ L 1.32-3.57 (BEAKER) (test code = 414) MONOCYTES ABSOLUTE COUNT (BEAKER) 0.47 K/ L 0.30-0.82 (test code = 415) EOSINOPHILS ABSOLUTE COUNT 0.13 K/ L 0.04-0.54 (BEAKER) (test code = 416) BASOPHILS ABSOLUTE COUNT (BEAKER) 0.04 K/ L 0.01-0.08 (test code = 417) IMMATURE GRANULOCYTES-RELATIVE 0 % 0-1 PERCENT (BEAKER) (test code = 2801) [id number] 05:32:19 Test Item Value Reference Range Interpretation Comments MAGNESIUM (BEAKER) (test code = 1.9 mg/dL 1.6-2.6 627) Machine Room Engineer ID - [id number] 05:32:19 Test Item Value Reference Range Interpretation Comments PHOSPHORUS (BEAKER) (test code = 4.0 mg/dL 2.3-4.7 604) Machine Room Engineer ID - DBCOMPREHENSIVE METABOLIC [id number] 05:32:18 Test Item Value Reference Range Interpretation Comments TOTAL PROTEIN 6.7 gm/dL 6.0-8.3 (BEAKER) (test code = 770) ALBUMIN (BEAKER) 3.6 g/dL 3.5-5.0 (test code = 1145) ALKALINE PHOSPHATASE 145 U/L 40-150 (BEAKER) (test code = 346) BILIRUBIN TOTAL 1.6 mg/dL 0.2-1.2 H (BEAKER) (test code = 377) SODIUM (BEAKER) (test 137 meq/L 136-145 code = 381) POTASSIUM (BEAKER) 4.1 meq/L 3.5-5.1 (test code = 379) CHLORIDE (BEAKER) 105 meq/L 98-107 (test code = 382) CO2 (BEAKER) (test 23 meq/L 22-29 code = 355) BLOOD UREA NITROGEN 10 mg/dL 7-21 (BEAKER) (test code = 354) CREATININE (BEAKER) 0.73 mg/dL 0.57-1.25 (test code = 358) GLUCOSE RANDOM 101 mg/dL 70-105 (BEAKER) (test code = 652) CALCIUM (BEAKER) 8.5 mg/dL 8.4-10.2 (test code = 697) AST (SGOT) (BEAKER) 27 U/L 5-34 (test code = 353) ALT (SGPT) (BEAKER) 14 U/L 6-55 (test code = 347) EGFR (BEAKER) (test 104 ESTIMATE D GFR IS code = 1092) mL/min/1.73 sq NOT ACCURA TE m CREATININE CLEARANCE IN PREDICTING GLOMERULAR FILTRATION RATE . ESTIMATED GFR I S NOT APPLICABLE FOR DIALYSIS PATIEN TS. Machine Room Engineer ID - DBSARS-COV2/RT-PCR ([facility] REF [facility])2021-07-08 10:23:18 Test Item Value Reference Range Interpretation Comments SARS-COV2/RT-PCR (test Negative Not Detected, Negative, code = 2556033) See external report for linked test SARS-COV-2 PERFORMING LAB [facility] (test code = 8226157) Negative result for this test determines that [...] 564(g) of the Act.Fact Sheet for Healthcare Providers:https://www.[employer]/sites/default/files/product/documents/Fact_Shee p_YH_Xkztdnwxl_Xgpj_CAXI-BgC-6.pdfFact Sheet for Healthcare Patients:https://www.[employer]/sites/default/files/product/ documents/Jhbw_Zbibr_Fbuttzzj_Rwon_UWRY-ZvO-3.pdfPerforming Laboratory:[facility], [place] [id number] 04:26:20 Test Item Value Reference Range Interpretation Comments MAGNESIUM (BEAKER) (test code = 1.9 mg/dL 1.6-2.6 627) Machine Room Engineer ID - KEILA [id number] 04:26:20 Test Item Value Reference Range Interpretation Comments PHOSPHORUS (BEAKER) (test code = 3.9 mg/dL 2.3-4.7 604) Machine Room Engineer ID - KEILA GCOMPREHENSIVE METABOLIC [id number] 04:26:19 Test Item Value Reference Range Interpretation Comments TOTAL PROTEIN 6.4 gm/dL 6.0-8.3 (BEAKER) (test code = 770) ALBUMIN (BEAKER) 3.4 g/dL 3.5-5.0 L (test code = 1145) ALKALINE PHOSPHATASE 131 U/L 40-150 (BEAKER) (test code = 346) BILIRUBIN TOTAL 1.2 mg/dL 0.2-1.2 (BEAKER) (test code = 377) SODIUM (BEAKER) (test 138 meq/L 136-145 code = 381) POTASSIUM (BEAKER) 3.7 meq/L 3.5-5.1 (test code = 379) CHLORIDE (BEAKER) 107 meq/L 98-107 (test code = 382) CO2 (BEAKER) (test 23 meq/L 22-29 code = 355) BLOOD UREA NITROGEN 15 mg/dL 7-21 (BEAKER) (test code = 354) CREATININE (BEAKER) 0.73 mg/dL 0.57-1.25 (test code = 358) GLUCOSE RANDOM 108 mg/dL 70-105 H (BEAKER) (test code = 652) CALCIUM (BEAKER) 8.5 mg/dL 8.4-10.2 (test code = 697) AST (SGOT) (BEAKER) 24 U/L 5-34 (test code = 353) ALT (SGPT) (BEAKER) 17 U/L 6-55 (test code = 347) EGFR (BEAKER) (test 104 ESTIMATE D GFR IS code = 1092) mL/min/1.73 sq NOT ACCURA TE m CREATININE CLEARANCE IN PREDICTING GLOMERULAR FILTRATION RATE . ESTIMATED GFR I S NOT APPLICABLE FOR DIALYSIS PATIEN TS. Machine Room Engineer ID - KEILA GCBC W/PLT COUNT & AUTO [id number] 03:33:37 Test Item Value Reference Range Interpretation Comments WHITE BLOOD CELL COUNT (BEAKER) 4.8 K/ L 3.5-10.5 (test code = 775) RED BLOOD CELL COUNT (BEAKER) 3.79 M/ L 4.63-6.08 L (test code = 761) HEMOGLOBIN (BEAKER) (test code = 10.0 GM/DL 13.7-17.5 L 410) HEMATOCRIT (BEAKER) (test code = 33.4 % 40.1-51.0 L 411) MEAN CORPUSCULAR VOLUME (BEAKER) 88.1 fL 79.0-92.2 (test code = 753) MEAN CORPUSCULAR HEMOGLOBIN 26.4 pg 25.7-32.2 (BEAKER) (test code = 751) MEAN CORPUSCULAR HEMOGLOBIN CONC 29.9 GM/DL 32.3-36.5 L (BEAKER) (test code = 752) RED CELL DISTRIBUTION WIDTH 17.1 % 11.6-14.4 H (BEAKER) (test code = 412) PLATELET COUNT (BEAKER) (test 147 K/CU MM 150-450 L code = 756) MEAN PLATELET VOLUME (BEAKER) 10.5 fL 9.4-12.4 (test code = 754) NUCLEATED RED BLOOD CELLS 0 /100 WBC 0-0 (BEAKER) (test code = 413) NEUTROPHILS RELATIVE PERCENT 64 % (BEAKER) (test code = 429) LYMPHOCYTES RELATIVE PERCENT 26 % (BEAKER) (test code = 430) MONOCYTES RELATIVE PERCENT 8 % (BEAKER) (test code = 431) EOSINOPHILS RELATIVE PERCENT 3 % (BEAKER) (test code = 432) BASOPHILS RELATIVE PERCENT 1 % (BEAKER) (test code = 437) NEUTROPHILS ABSOLUTE COUNT 3.06 K/ L 1.78-5.38 (BEAKER) (test code = 670) LYMPHOCYTES ABSOLUTE COUNT 1.24 K/ L 1.32-3.57 L (BEAKER) (test code = 414) MONOCYTES ABSOLUTE COUNT (BEAKER) 0.36 K/ L 0.30-0.82 (test code = 415) EOSINOPHILS ABSOLUTE COUNT 0.12 K/ L 0.04-0.54 (BEAKER) (test code = 416) BASOPHILS ABSOLUTE COUNT (BEAKER) 0.03 K/ L 0.01-0.08 (test code = 417) IMMATURE GRANULOCYTES-RELATIVE 0 % 0-1 PERCENT (BEAKER) (test code = 2801) HEMOGLOBIN [id number] 12:01:27 Test Item Value Reference Range Interpretation Comments HEMOGLOBIN A1C (BEAKER) (test code = 6.7 % 4.3-6.1 H 368) [id number] 07:53:18 Test Item Value Reference Range Interpretation Comments FERRITIN (BEAKER) (test code = 25.31 ng/mL 5.00-275.00 361) Machine Room Engineer ID - EMERSONIRON, TIBC, % SAT. (WITHOUT FERRITIN)2021-07-07 07:39:33 Test Item Value Reference Range Interpretation Comments IRON (BEAKER) (test code = 547) 33.0 ug/dL 40.0-160.0 L TOTAL IRON BINDING CAPACITY 439 ug/dL 250-450 (BEAKER) (test code = 769) IRON % SATURATION (2) (BEAKER) 8 % 20-55 L (test code = 2590) Machine Room Engineer ID - [id number] 05:22:57 Test Item Value Reference Range Interpretation Comments THYROID STIMULATING HORMONE 2.384 uIU/mL 0.350-4.940 (BEAKER) (test code = 772) Machine Room Engineer ID - KEILA GT4, [id number] 05:22:56 Test Item Value Reference Range Interpretation Comments FREE T4 (BEAKER) (test code = 655) 0.99 ng/dL 0.70-1.48 Machine Room Engineer ID - KEILA GC-REACTIVE [id number] 05:10:12 Test Item Value Reference Range Interpretation Comments C-REACTIVE PROTEIN (BEAKER) (test 0.27 mg/dL 0.00-0.50 code = 676) Machine Room Engineer ID - KEILA GCOMPREHENSIVE METABOLIC [id number] 05:10:11 Test Item Value Reference Range Interpretation Comments TOTAL PROTEIN 6.8 gm/dL 6.0-8.3 Specimen sligh tly (BEAKER) (test code = hemoly zed 770) ALBUMIN (BEAKER) 3.5 g/dL 3.5-5.0 Specimen sl ightly (test code = 1145) hemolyzed ALKALINE PHOSPHATASE 130 U/L 40-150 (BEAKER) (test code = 346) BILIRUBIN TOTAL 0.9 mg/dL 0.2-1.2 Specimen sli ghtly (BEAKER) (test code = hemoly zed 377) SODIUM (BEAKER) (test 139 meq/L 136-145 code = 381) POTASSIUM (BEAKER) 4.5 meq/L 3.5-5.1 Specimen slightly (test code = 379) hemolyzed CHLORIDE (BEAKER) 109 meq/L 98-107 H (test code = 382) CO2 (BEAKER) (test 19 meq/L 22-29 L code = 355) BLOOD UREA NITROGEN 19 mg/dL 7-21 (BEAKER) (test code = 354) CREATININE (BEAKER) 1.04 mg/dL 0.57-1.25 Specimen slightly (test code = 358) hemolyzed GLUCOSE RANDOM 115 mg/dL 70-105 H (BEAKER) (test code = 652) CALCIUM (BEAKER) 8.4 mg/dL 8.4-10.2 (test code = 697) AST (SGOT) (BEAKER) 32 U/L 5-34 Specimen slightly (test code = 353) hemolyzed ALT (SGPT) (BEAKER) 12 U/L 6-55 Specimen slightly (test code = 347) hemolyzed EGFR (BEAKER) (test 69 mL/min/1.73 ESTIMA AUTUMN GFR IS code = 1092) sq m NOT ACCURATE CREATININE CLEARANCE IN PREDICTING GLOMERULAR FILTRATION RATE . ESTIMATED GFR I S NOT APPLICABLE FOR DIALYSIS PATIEN TS. Machine Room Engineer ID - KEILA GLIPID [id number] 05:10:11 Test Item Value Reference Range Interpretation Comments TRIGLYCERIDES (BEAKER) 98 mg/dL Speci men slightly (test code = 540) hemolyzed CHOLESTEROL (BEAKER) 76 mg/dL Specime n slightly (test code = 631) hemolyzed HDL CHOLESTEROL (BEAKER) 28 mg/dL (test code = 976) LDL CHOLESTEROL 28 mg/dL CALCULATED (BEAKER) (test code = 633) Triglyceride Reference Range: Low Risk <150 Borderline 150-199 High Risk 200-499 Very High Risk >=500Cholesterol Reference Range: Low Risk <200 Borderline 200-239 High Risk >240HDL Cholesterol Reference Range: Low Risk >=60 High Risk <40LDL Cholesterol Reference Range: Optimal <100 Near Optimal 100-129 Borderline 130-159 High 160-189 Very High >=190 Machine Room Engineer ID - [id number] 05:10:10 Test Item Value Reference Range Interpretation Comments MAGNESIUM (BEAKER) 2.0 mg/dL 1.6-2.6 Specimen slightly (test code = 627) hemolyzed Machine Room Engineer ID - KEILA [id number] 05:10:10 Test Item Value Reference Range Interpretation Comments PHOSPHORUS (BEAKER) 4.8 mg/dL 2.3-4.7 H Specimen slightly (test code = 604) hemolyzed Machine Room Engineer ID - KEILA GHIGH SENSITIVITY TROPONIN [id number] 05:08:05 Test Item Value Reference Range Interpretation Comments HIGH SENSITIVITY 6 pg/ml See_Comment [Automated message] TROPONIN I (test code = The system which [id number]) generated this result transmitted ref erence range: <=35. Th e reference range was not used to interpr et this result as normal/abnormal . Machine Room Engineer ID - KEILA GThe KISS MACHINE OPERATOR STAT High Sensitivity Troponin-I results should be used in conjunction with other diagnostic information such as ECG, clinical observations and information, and patient symptoms to aid in the diagnosis of MA.B-TYPE NATRIURETIC FACTOR (BNP)2021-07-07 05:07:44 Test Item Value Reference Range Interpretation Comments B-TYPE NATRIURETIC PEPTIDE (BEAKER) 322 pg/mL 0-100 H (test code = 700) Machine Room Engineer ID - KEILA GCBC W/PLT COUNT & AUTO [id number] 04:49:34 Test Item Value Reference Range Interpretation Comments WHITE BLOOD CELL COUNT (BEAKER) 5.3 K/ L 3.5-10.5 (test code = 775) RED BLOOD CELL COUNT (BEAKER) 3.80 M/ L 4.63-6.08 L (test code = 761) HEMOGLOBIN (BEAKER) (test code = 10.2 GM/DL 13.7-17.5 L 410) HEMATOCRIT (BEAKER) (test code = 34.2 % 40.1-51.0 L 411) MEAN CORPUSCULAR VOLUME (BEAKER) 90.0 fL 79.0-92.2 (test code = 753) MEAN CORPUSCULAR HEMOGLOBIN 26.8 pg 25.7-32.2 (BEAKER) (test code = 751) MEAN CORPUSCULAR HEMOGLOBIN CONC 29.8 GM/DL 32.3-36.5 L (BEAKER) (test code = 752) RED CELL DISTRIBUTION WIDTH 17.3 % 11.6-14.4 H (BEAKER) (test code = 412) PLATELET COUNT (BEAKER) (test 158 K/CU MM 150-450 code = 756) MEAN PLATELET VOLUME (BEAKER) 11.6 fL 9.4-12.4 (test code = 754) NUCLEATED RED BLOOD CELLS 0 /100 WBC 0-0 (BEAKER) (test code = 413) NEUTROPHILS RELATIVE PERCENT 64 % (BEAKER) (test code = 429) LYMPHOCYTES RELATIVE PERCENT 26 % (BEAKER) (test code = 430) MONOCYTES RELATIVE PERCENT 7 % (BEAKER) (test code = 431) EOSINOPHILS RELATIVE PERCENT 2 % (BEAKER) (test code = 432) BASOPHILS RELATIVE PERCENT 1 % (BEAKER) (test code = 437) NEUTROPHILS ABSOLUTE COUNT 3.41 K/ L 1.78-5.38 (BEAKER) (test code = 670) LYMPHOCYTES ABSOLUTE COUNT 1.38 K/ L 1.32-3.57 (BEAKER) (test code = 414) MONOCYTES ABSOLUTE COUNT (BEAKER) 0.39 K/ L 0.30-0.82 (test code = 415) EOSINOPHILS ABSOLUTE COUNT 0.09 K/ L 0.04-0.54 (BEAKER) (test code = 416) BASOPHILS ABSOLUTE COUNT (BEAKER) 0.03 K/ L 0.01-0.08 (test code = 417) IMMATURE GRANULOCYTES-RELATIVE 0 % 0-1 PERCENT (BEAKER) (test code = 2801) RAD, CHEST, 2 [id number] 16:40:00Reason for Exam:[facility] 1945 Sex: MFINAL REPORT HISTORY: Cardiomyopathy COMPARISON: 11/29/2020, 12/17/2020 FINDINGS: The lungs are clear. There is a small right pleural effusion. The heart shadow is borderline enlarged. Sternotomy wires are present as is a left atrial appendage closure device. The thoracicaorta is mildly tortuous and calcified. Degenerative changes are present in the spine. IMPRESSION: Small right pleural effusion. Signed: Zhao Arshad MDRort Verified Date/Time: 05/02/2021 16:40:10 Reading Location: [facility] Radiology Reading Room PYP SCAN, INFARCT IMAGING, [id number] 15:01:00Reason for Exam:->[facility] : 1945 Sex: MFINAL REPORT PROCEDURE: TECHNETIUM PYROPHOSPHATE (PYP) PLANAR \T\ SPEC T IMAGING CPT CODE: 70223, 77192 INDICATION: Heart Failure, evaluate possible ATTR cardiac amyloidosisBMI: 34.1 IMAGING PROTOCOL:20.1 mCi of Tc-99m pyrophosphate was injected intravenously at rest. Planar images of the chest were obtained 3-4 hours after tracer injection. Bnwz-dr-skscg chest ratio of a ctivity was calculated from planar images. SPECT (tomographic) images of the chest were also obtained to further define cardiac-region activity. FINDINGS:Myocardial Activity Grade: 2 (myocardial activity equals rib uptake).Heart to Contralateral Chest Ratio: 1.07.Extracardiac Activity: Tracer distribution is irregular in the spine. IMPRESSION:1. 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 Degenerative disease of the spine.3. There is no prior study for comparison. Signed: Adriano Olea MDReport Verified Date/Time: 02/08/2021 15:01:15 Reading Location:[address] Reading Room Electronically signed by: ADRIANO OLEA MD on 02/08 03:01 PMXR CHEST 2 [id number] 15:42:15HISTORY: Hemorrhage of rectum and anus. TECHNIQUE: PA and lateral views of the chest are obtained. No prior cheststudy available for comparison. FINDINGS: No acute pneumonia detected. No pneumothorax or pleural effusionor pulmonary congestion. Cardiothoracic ratio of approximately 17.8/34.8 cmis consistent with mild cardiomegaly. Midline sternotomy sutures from prioropen thoracic surgery for coronarybypass as well as for placement ofocclusive device in the left atrium noted. CONCLUSIONS: Mild cardiomegaly. No signs of acute cardiopulmonary disease.[facility], Radiant Results Inft User - 12/28/2020 10:43AM CDTHISTORY: Hemorrhage of rectum and anus.TECHNIQUE: PA and lateral views of the chest are obtained. No prior cheststudy available for comparison.FINDINGS: No acute pneumonia detected. No pneumothorax or pleural effusionor pulmonary congestion. Cardiothoracic ratio of approximately 17.8/34.8 cmis consistent with mild cardiomegaly. Midline sternotomy sutures from prioropen thoracic surgery for coronary bypass as well as for placement ofocclusive device in the left atrium noted.CONCLUSIONS: Mild cardiomegaly. No signs of acute cardiopulmonary disease.[facility] T4 IF [id number] 15:41:00 Test Item Value Reference Range Interpretation Comments THYROID STIMULATING HORMONE 2.323 uIU/mL 0.350-4.940 (BEAKER) (test code = 772) Machine Room Engineer ID - DBSARS-COV2/INFLUENZA/RSV [id number] 15:38:00 Test Item Value Reference Range Interpretation Comments SARS-COV2/RT-PCR Negative Negative (test code = 9261901) INFLUENZA A RT-PCR Negative Negative (test code = 2388434) INFLUENZA B RT-PCR Negative Negative (test code = 7229004) RSV RT-PCR (test Negative Negative Performanc e of the Xpert code = 7425171) Xpress SARS- CoV-2/Flu/RSV test has only b een established in nasopharyngeal swab specimens. Use of the Xpert Xpress SARS-CoV-2/Flu/ RSV test with other spec imen types has not been as sessed and performance characteristics are unknown. As wi th any molecular test, mutations within the targ eted genetic regions identified by t he Xpert Xpress SARS-CoV -2/Flu/RSV test could affe ct primer and/or probe bi nding resulting in fa ilure to detect the pres ence of virus or the vi ada being detected less predictably.Neg ative results do not preclude SARS-CoV-2, Inf luenza A/B, or RSV inf ection and should not be u sed as the sole basis for treatment or other patien t management deci sions. Results from e Xpert Xpress SARS-CoV -2/Flu/RSV test should be correlated with the clinic al history, epidem iological data, and other data available to e clinician evalu ating the patient. Inval id test results may occ ur from improper specim en collection; hannah lure to follow the aj mmended sample collecti on, handling, and s torage procedures; boris hnical error. False ne gative results may occ ur if virus is presen t at levels below th e analytical limi t of detection (LOD: 131 copies/mL). Vi ral nucleic acid ma y persist in vivo, indepe ndent of virus viability . Detection of an alyte target(s) does not imply that the corres ponding virus(es) are i nfectious or are the caus ative agents for clin ical symptoms. Rece nt patient exposure to Flu Mist or other live atte nuated influenza vacci tha may cause inaccurat e positive results.This te st has been authorized by FDA under an EUA fo r use by authorized labo ratories. This test is on ly authorized for the duration of the declaration ajit t circumstances e xist justifying the authorization o f emergency use o f in vitro diagnostic test s for detection and/o r diagnosis of CO VID-19 under Section 5 64(b)(1) of the Federal Food, Drug and Cosmetic Ac t, 21 U.S.C. 360bbb -3(b)(1), unless the auth orization is terminated o r revoked sooner.Fact She et for Healthcare Prov iders: https://www.[employer]/D ocuments/Xpert% 20Xpress%2 5JRRH-HvF-1-Flu -RSV/302-4 508%20Rev.%20B% 20HCP%20Fa ct%20Sheet.pdfF act Sheet for Healthcare Patients: https://www.[employer]/D ocuments/Xpert% 20Xpress%2 2XBEM-DeK-0-Flu -RSV/302-4 507%20Rev.%20B% 20Patient% 20Fact%20Sheet. pdf TROPONIN [id number] 14:53:00 Test Item Value Reference Range Interpretation Comments TROPONIN I (ANDREA) (test code = 397) < ng/mL 0.00-0.03 Troponin I (TnI) levels must be interpreted in the context of the presenting symptoms and the clinical findings. Elevated TnI levels indicate myocardial damage, but are not specific for ischemic heart disease. Elevated TnI levels are seen in patients with other cardiac conditions (including myocarditis and congestive heart failure), and slight TnI elevations occur in patients with other conditions, including sepsis, renal failure, acidosis, acute neurological disease, and persistent tachyarrhythmia.Machine Room Engineer ID - DBB-TYPE NATRIURETIC FACTOR (BNP)2020-12-17 14:46:00 Test Item Value Reference Range Interpretation Comments B-TYPE NATRIURETIC PEPTIDE (BEAKER) 152 pg/mL 0-100 H (test code = 700) Machine Room Engineer ID - DBCOMPREHENSIVE METABOLIC [id number] 14:46:00 Test Item Value Reference Range Interpretation Comments TOTAL PROTEIN 7.0 gm/dL 6.0-8.3 Specimen moder ately (BEAKER) (test code = hemoly zed 770) ALBUMIN (BEAKER) 3.5 g/dL 3.5-5.0 Specimen mo derately (test code = 1145) hemolyzed ALKALINE PHOSPHATASE 100 U/L 40-150 (BEAKER) (test code = 346) BILIRUBIN TOTAL 1.0 mg/dL 0.2-1.2 Specimen mod erately (BEAKER) (test code = hemoly zed 377) SODIUM (BEAKER) (test 139 meq/L 136-145 code = 381) POTASSIUM (BEAKER) 4.6 meq/L 3.5-5.1 Specimen moderately (test code = 379) hemolyzed CHLORIDE (BEAKER) 106 meq/L 98-107 (test code = 382) CO2 (BEAKER) (test 23 meq/L 22-29 code = 355) BLOOD UREA NITROGEN 17 mg/dL 7-21 (BEAKER) (test code = 354) CREATININE (BEAKER) 1.01 mg/dL 0.57-1.25 Specimen moderately (test code = 358) hemolyzed GLUCOSE RANDOM 143 mg/dL 70-105 H (BEAKER) (test code = 652) CALCIUM (BEAKER) 8.0 mg/dL 8.4-10.2 L (test code = 697) AST (SGOT) (BEAKER) 31 U/L 5-34 Specimen moderately (test code = 353) hemolyzed ALT (SGPT) (BEAKER) 15 U/L 6-55 Specimen moderately (test code = 347) hemolyzed EGFR (BEAKER) (test 72 mL/min/1.73 ESTIMA AUTUMN GFR IS code = 1092) sq m NOT ACCURATE CREATININE CLEARANCE IN PREDICTING GLOMERULAR FILTRATION RATE . ESTIMATED GFR I S NOT APPLICABLE FOR DIALYSIS PATIEN TS. Machine Room Engineer ID - [id number] GAS, [id number] 14:21:00 Test Item Value Reference Range Interpretation Comments PH VENOUS (BEAKER) (test code = 7.37 7.32-7.42 701) PCO2 VENOUS (BEAKER) (test code = 48 mm Hg 41-51 755) PO2 VENOUS (BEAKER) (test code = 29 mm Hg 25-40 702) O2 SATURATION VENOUS (BEAKER) 53.0 % 40.0-70.0 (test code = 703) HCO3 VENOUS (BEAKER) (test code = 27 mmol/L 21-29 705) BASE EXCESS VENOUS (BEAKER) (test 1.0 mmol/L -2.0-3.0 code = 704) PATIENT TEMPERATURE (BEAKER) (test 37.0 code = 1818) FIO2 (BEAKER) (test code = 1819) 21.0 CBC W/PLT COUNT & AUTO [id number] 14:21:00 Test Item Value Reference Range Interpretation Comments WHITE BLOOD CELL COUNT (BEAKER) 4.9 K/ L 3.5-10.5 (test code = 775) RED BLOOD CELL COUNT (BEAKER) 3.53 M/ L 4.63-6.08 L (test code = 761) HEMOGLOBIN (BEAKER) (test code = 11.3 GM/DL 13.7-17.5 L 410) HEMATOCRIT (BEAKER) (test code = 35.3 % 40.1-51.0 L 411) MEAN CORPUSCULAR VOLUME (BEAKER) 100.0 fL 79.0-92.2 H (test code = 753) MEAN CORPUSCULAR HEMOGLOBIN 32.0 pg 25.7-32.2 (BEAKER) (test code = 751) MEAN CORPUSCULAR HEMOGLOBIN CONC 32.0 GM/DL 32.3-36.5 L (BEAKER) (test code = 752) RED CELL DISTRIBUTION WIDTH 14.6 % 11.6-14.4 H (BEAKER) (test code = 412) PLATELET COUNT (BEAKER) (test 173 K/CU MM 150-450 code = 756) MEAN PLATELET VOLUME (BEAKER) 10.7 fL 9.4-12.4 (test code = 754) NUCLEATED RED BLOOD CELLS 0 /100 WBC 0-0 (BEAKER) (test code = 413) NEUTROPHILS RELATIVE PERCENT 60 % (BEAKER) (test code = 429) LYMPHOCYTES RELATIVE PERCENT 28 % (BEAKER) (test code = 430) MONOCYTES RELATIVE PERCENT 8 % (BEAKER) (test code = 431) EOSINOPHILS RELATIVE PERCENT 3 % (BEAKER) (test code = 432) BASOPHILS RELATIVE PERCENT 1 % (BEAKER) (test code = 437) NEUTROPHILS ABSOLUTE COUNT 2.94 K/ L 1.78-5.38 (BEAKER) (test code = 670) LYMPHOCYTES ABSOLUTE COUNT 1.35 K/ L 1.32-3.57 (BEAKER) (test code = 414) MONOCYTES ABSOLUTE COUNT (BEAKER) 0.41 K/ L 0.30-0.82 (test code = 415) EOSINOPHILS ABSOLUTE COUNT 0.13 K/ L 0.04-0.54 (BEAKER) (test code = 416) BASOPHILS ABSOLUTE COUNT (BEAKER) 0.03 K/ L 0.01-0.08 (test code = 417) IMMATURE GRANULOCYTES-RELATIVE 0 % 0-1 PERCENT (BEAKER) (test code = 2801) RAD, CHEST, 2 [id number] 13:47:00Reason for exam:->[facility] OF BRE[facility] 1945 Sex: MFINAL REPORT TECHNIQUE: Frontal and lateral views of the chest. INDICA TION: SHORTNESS OF BREATH COMPARISON: 11/29/2020. FINDINGS: LINES/TUBES: None. LUNGS: The lungs are well inflated and clear. No consolidation or pulmonary edema. PLEURA: Small right-sided pleural effusion. No pneumothorax.. HEART AND MEDIASTINUM: The cardiomediastinal silhouette is enlarged, unchanged. Postsurgical changes from median sternotomy.. SOFT TISSUES AND BONES: Unremarkable. IMPRESSION:Small right-sided pleural effusion. Stable cardiomegaly.. Signed: Rachel Bunch MDReport Verified Date/Time: 12/17/2020 13:47:13 Reading Location: [address] Body Reading Room CT, CHEST WITH IV CONTRAST- PE TEST [id number] 15:31:00Unlisted Reason for Exam - Click Yes and Enter Reason Below->Yes Unlisted Reason for Exam->[facility].02[facility] : 1945 Sex: MFINAL REPORT CT, CHEST WITH IV CONTRAST- PE TEST DESIGN HISTORY: Shor tness of ifaxpfK61.02 COMPARISON: CT chest 05/21/2011 TECHNIQUE: CT chest with intravenous contrast in the pulmonary artery phase. Dose modulation, iterative reconstruction, and/or weight-based adjustment of the mA/kV was utilized to reduce the radiation dose to as low as reasonably achievable. FINDINGS: Mildly motion degraded exam. Pulmonary artery: The main pulmonary pulmonary artery is normal in size. The pulmonary artery is well opacified, with no filling defect seen given limitations of respiratory motion. Other cardiovascular findings: Ectasia of the ascending thoracic aorta up to 45 mm. Extensive coronary artery calcifications. Moderate atherosclerotic calcifications of the thoracic aorta and branch vessels. Postsurgical changes of CABG. Marked cardiomegaly Lungs: Respiratory motion artifact. Compressive atelectasis in the right lower lobe related to the patient's pleural effusion. A calcified left lower lobe pulmonary nodule related to old granulomatous diseaseCentral airways: Expiratory phase of imaging with bowing of the posterior membrane.Pleura: Moderate right pleural effusion.Lymph nodes: A few scattered subcentimeter short axis mediastinal lymph nodes are nonspecific but likely reactiveThyroid gland: UnremarkableEsophagus: UnremarkableIncluded upper abdomen: Reflux of contrast in the hepatic veins suggesting elevated right heart pressures. Cholecystectomy clips. Moderate spl enomegaly, 15 cm long axis.Bones: Median sternotomy wires. Degenerative disc diseaseChest wall: Unremarkable. IMPRESSION: 1.No evidence of an acute pulmonary embolism on this exam. 2.Moderate right pleural effusion with resulting atelectasis.3.Cardiomegaly, coronary artery calcifications, and changesof CABG.4.Ectasia of the ascending thoracic aorta up to 45 mm. Recommend 6-12 month follow-up CTA chest.5.Moderate splenomegaly Signed: Kezia Otto MDReport Verified Date/Time: 12/15/2020 15:31:14 [id number] 15:24:00 Test Item Value Reference Range Interpretation Comments POC-CREATININE 1.0 mg/dL 0.6-1.3 : TESTED AT [facility] ([facility]) (test [address] [facility] code = 1859) [place] [address]: Machine Room Engineer/Techni jonny ID = [id number] for Bekah Mccall POC-EGFR ([facility]) 73 mL/min/1.73M2 (test code = 1860) RAD, CHEST, 2 [id number] 17:53:00Reason for Exam:->[facility]25.10 [facility] : 1945 Sex: MFINAL REPORT RAD, CHEST, 2 VIEWS TECHNIQUE: Frontal and lateral views of the chest. INDICATION: l25.10 COMPARISON: Chest radiograph 12/29/2012. IMPRESSION: Lungs: The lungs are well inflated and clear. No consolidation or pulmonary edema. Pleura: No pleural effusion or pneumothorax. Heart and Mediastinum: Cardiomegaly. Mediastinal surgical clips. Tortuous thoracic aorta w ith knob calcifications, atrial appendage closure device, mild central vascular congestion. Lines/Tubes: None. Soft Tissues and Bones: Median sternotomy wires. Signed: Kezia Otto Verified Date/Time: 11/29/2020 17:53:18 -COV2/RT-PCR ([facility])2020-10-03 12:47:00 Test Item Value Reference Range Interpretation Comments SARS-COV2/RT-PCR (test Negative Not Detected, Negative, code = 8761085) See external report for linked test SARS-COV-2 PERFORMING LAB [facility] (test code = 7473455) Negative result for this test determines that [...] 564(g) of the Act.Fact Sheet for Healthcare Providers:https://www.[employer]/sites/default/files/product/documents/Fact_Shee w_ZW_Ybilxilpt_Zufe_TFLM-TsF-4.pdfFact Sheet for Healthcare Patients:https://www.[employer]/sites/default/files/product/ documents/Hhmx_Paokr_Vyswonii_Vjkm_NWNC-SnV-6.pdfPerforming Laboratory:[place] [address], [place] [address]LFTOXODXIWA TIME/INR 2020-10-03 08:11:00 Test Item Value Reference Range [...] is2.5-3.5 for patients wiht mechanical heart valves.SARS-COV2/RT-PCR ([facility]) 2020-09-12 11:24:00 Test Item Value Reference Range Interpretation Comments SARS-COV2/RT-PCR (test Negative Not Detected, Negative, code = 2881922) See external report for linked test SARS-COV-2 PERFORMING LAB [facility] (test code = 1383224) Negative result for this test determines that [...] 564(g) of the Act.Fact Sheet for Healthcare Providers:https://www.[employer]/sites/default/files/product/documents/Fact_Shee i_AV_Sspaezwvn_Exle_CSSF-FwH-6.pdfFact Sheet for Healthcare Patients:https://www.[employer]/sites/default/files/product/ documents/Yioh_Dkdpo_Ibubojqr_Clfs_PVSC-HyA-7.pdfPerforming Laboratory:[facility], [place] [address]SCMPS METABOLIC PANEL 2020-09-12 08:22:00 Test Item Value Reference Range [...] S NOT APPLICABLE FOR DIALYSIS PATIEN TS. Machine Room Engineer ID - [place] [facility] W/PLT COUNT & AUTO [id number] 08:05:00 Test Item Value Reference Range Interpretation [...] % 0-1 PERCENT (BEAKER) (test code = 2231)
--- NOTE | 2021-12-20 17:53 | RAD REPORT ---
EXAM DESCRIPTION: USExtgeni Venous Uni Ltd12/20/2021 5:23 pm CLINICAL HISTORY: Right leg pain and swelling. COMPARISON: 2013 FINDINGS: Right common femoral, superficial femoral, popliteal and right posterior tibial veins are compressible and demonstrate augmentation. Doppler demonstrates good flow. Grayscale, color and spectral analysis performed on all vessels IMPRESSION: No evidence of deep venous thrombosis involving the right lower extremity.
--- NOTE | 2021-12-20 18:00 | ER ---
Nurse's Notes [facility] Name: Bryan Nance Age: 76 yrs Sex: Male : 1945 Arrival Date: 12/20/2021 Time: 16:11 Bed 12 Private MD: Diagnosis: Pain in right leg Presentation: 12/20 16:25 Chief complaint: Patient states: R groin and R leg pain since having cardiac ablation ll1 last month. Coronavirus screen: Vaccine status: Patient reports receiving the 2nd dose of the covid vaccine. Client denies travel out of the [place] in the last 14 days. At this time, the client does not indicate any symptoms associated with coronavirus-19. Ebola Screen: Patient denies travel to an Ebola-affected area in the 21 days before illness onset. Initial Sepsis Screen: Does the patient meet any 2 criteria? No. Patient's initial sepsis screen is negative. Risk Assessment: Do you want to hurt yourself or someone else? Patient reports no desire to harm self or others. Onset of symptoms was November 20, 2021. 16:25 Method Of Arrival: Ambulatory ll1 16:25 Acuity: CRICKET 3 ll1 Historical: - Allergies: 16:23 No Known Allergies; ll1 - PMHx: 16:23 CHF; High Cholesterol; Gout; Hypertension; Atrial Fib; ll1 - PSHx: 16:23 pacemaker; heart ablation; hernia repair; Appendectomy; Cholecystectomy; R total knee; ll1 - Immunization history:: Client reports receiving the 2nd dose of the Covid vaccine. - Social history:: Smoking status: Patient denies any tobacco usage or history of. Screenin:40 Abuse screen: Denies threats or abuse. Denies injuries from another. Nutritional ab2 screening: No deficits noted. Tuberculosis screening: No symptoms or risk factors identified. Fall Risk None identified. Assessment: 16:39 General: Appears in no apparent distress. uncomfortable, Behavior is calm, cooperative, ab2 appropriate for age. Pain: Complains of pain in right leg Pain does not radiate. Pain currently is 7 out of 10 on a pain scale. Neuro: No deficits noted. Level of Consciousness is awake, alert, obeys commands, Oriented to person, place, time, situation, Appropriate for age Telephone Operator Chief are equal bilaterally Moves all extremities. Gait is steady, Speech is normal. Cardiovascular: No deficits noted. Denies chest pain, shortness of breath, Heart tones S1 S2 present Patient's skin is warm and dry. Respiratory: No deficits noted. Airway is patent Respiratory effort is even, unlabored, Respiratory pattern is regular, symmetrical. GI: No deficits noted. No signs and/or symptoms were reported involving the gastrointestinal system. Abdomen is round non-distended, Bowel sounds present X 4 quads. : No deficits noted. No signs and/or symptoms were reported regarding the genitourinary system. EENT: No deficits noted. No signs and/or symptoms were reported regarding the EENT system. Musculoskeletal: Reports pain in right leg. Vital Signs: 16:25 BP 105 / 49; Pulse 82; Resp 16; Temp 97.3; Pulse Ox 100% ; Weight 81.19 kg; Height 5 ll1 ft. 6 in. (167.64 cm); Pain 10/10; 18:13 BP 111 / 56; Pulse 79; Resp 15; Pulse Ox 97% on R/A; ab2 16:25 Body Mass Index 28.89 (81.19 kg, 167.64 cm) ll1 ED Course: 16:11 Patient arrived in ED. ds1 16:18 Keron Avery DO is Attending Physician. ms3 16:18 Arm band placed on Patient placed in an exam room, on a stretcher. ll1 16:26 Triage completed. ll1 16:39 Ritchie Bolanos is Primary Nurse. ab2 16:40 No provider procedures requiring assistance completed. ab2 16:41 Patient has correct armband on for positive identification. Bed in low position. Call ab2 light in reach. Side rails up X2. 17:25 US Extremity Venous Unilateral Ltd In Process Unspecified. EDMS 18:13 Patient did not have IV access during this emergency room visit. ab2 Administered Medications: No medications were administered Outcome: 17:59 Discharge ordered by . ms3 18:13 Discharged to home ambulatory, with crutches, with family. ab2 18:13 Condition: good 18:13 Discharge instructions given to patient, family, Instructed on discharge instructions, follow up and referral plans. Demonstrated understanding of instructions, follow-up care. 18:13 Patient left the ED. ab2 Signatures: Dispatcher [employer] [facility] Jennifer Dee ds1 Miguel Jordan RN RN ll1 Keron Avery, DO DO ms3 Ritchie Bolanos ab2
--- NOTE | 2021-12-20 18:00 | EDPHYS ---
Physician Documentation [facility] Name: Bryan Nance Age: 76 yrs Sex: Male : 1945 Arrival Date: 12/20/2021 Time: 16:11 Bed 12 Private MD: ED Physician Keron Avery HPI: 12/20 16:31 This 76 yrs old Male presents to ER via Ambulatory with complaints of Leg Pain.ms3 16:31 The patient presents with pain, that is acute. The complaints affect the Right leg. ms3 Onset: The symptoms/episode began/occurred 1 month(s) ago. Modifying factors: The symptoms are alleviated by nothing. the symptoms are aggravated by Getting up or going to sit down. Associated signs and symptoms: The patient has no apparent associated signs or symptoms. 76-year-old male with past medical history of congestive heart failure, hyperlipidemia, gout, hypertension, atrial fibrillation presents for right leg pain that has been ongoing for 1 month status post cath. Patient denies alleviating factors. Patient states the pain is worse when going to stand up or sit down. Patient denies fevers, chills, nausea, vomiting, chest pain, shortness of breath. Historical: - Allergies: 16:23 No Known Allergies; ll1 - PMHx: 16:23 CHF; High Cholesterol; Gout; Hypertension; Atrial Fib; ll1 - PSHx: 16:23 pacemaker; heart ablation; hernia repair; Appendectomy; Cholecystectomy; R total knee; ll1 - Immunization history:: Client reports receiving the 2nd dose of the Covid vaccine. - Social history:: Smoking status: Patient denies any tobacco usage or history of. ROS: 16:31 Constitutional: Negative for fever, and chills. Neck: Negative for injury, pain, and ms3 swelling, Cardiovascular: Negative for chest pain, and palpitations. Respiratory: Negative for shortness of breath, cough, wheezing, and pleuritic chest pain, Abdomen/GI: Negative for abdominal pain, nausea, vomiting, diarrhea, and constipation, MS/Extremity: Negative for injury and deformity. 16:31 MS/extremity: Positive for pain. 16:31 All other systems are negative. Exam: 16:36 Constitutional: This is a well developed, well nourished patient who is awake, alert, ms3 and in no acute distress. Head/Face: Normocephalic, atraumatic. Chest/axilla: Normal chest wall appearance and motion. Nontender with no deformity. Cardiovascular: Regular rate and rhythm with a normal S1 and S2. No gallops, murmurs, or rubs. Normal PMI, no JVD. No pulse deficits. Respiratory: Lungs have equal breath sounds bilaterally, clear to auscultation and percussion. No rales, rhonchi or wheezes noted. No increased work of breathing, no retractions or nasal flaring. Abdomen/GI: Soft, non-tender, with normal bowel sounds. No distension or tympany. No guarding or rebound. No evidence of tenderness throughout. Skin: Warm, dry with normal turgor. Normal color with no rashes, no lesions, and no evidence of cellulitis. MS/ Extremity: Pulses equal, no cyanosis. Neurovascular intact. Full, normal range of motion. Vital Signs: 16:25 BP 105 / 49; Pulse 82; Resp 16; Temp 97.3; Pulse Ox 100% ; Weight 81.19 kg; Height 5 ll1 ft. 6 in. (167.64 cm); Pain 10/10; 18:13 BP 111 / 56; Pulse 79; Resp 15; Pulse Ox 97% on R/A; ab2 16:25 Body Mass Index 28.89 (81.19 kg, 167.64 cm) ll1 MDM: 16:23 Patient medically screened. ms3 16:36 Differential diagnosis: contusion, DVT vs Right leg pain. ms3 18:00 Data reviewed: vital signs, nurses notes, radiologic studies. Counseling: I had a ms3 detailed discussion with the patient and/or guardian regarding: the historical points, exam findings, and any diagnostic results supporting the discharge/admit diagnosis, radiology results, the need for outpatient follow up, to return to the emergency department if symptoms worsen or persist or if there are any questions or concerns that arise at home. ED course: Discussed venous Doppler with patient. Patient follow-up with his primary care physician in 2 to 3 days. Patient understands and agrees with plan. All questions were answered. Return precautions discussed include worsening symptoms, or any other concerns. On reevaluation patient is alert and oriented x4, in no apparent distress, nontoxic, ambulatory in the emergency department. 12/20 16:31 Order name: US Extremity Venous Unilateral Ltd; Complete Time: 17:59 ms3 Administered Medications: No medications were administered Disposition Summary: 12/20/21 17:59 Discharge Ordered Location: Home ms3 Condition: Stable ms3 Diagnosis - Pain in right leg ms3 Followup: ms3 - With: Private Physician - When: 2 - 3 days - Reason: Discharge Instructions: - Discharge Summary Sheet ms3 - Musculoskeletal Pain ms3 Forms: - Medication Reconciliation Form ms3 - Thank You Letter ms3 - Antibiotic Education ms3 - Prescription Opioid Use ms3 Signatures: Dispatcher [employer] Miguel Ingram RN RN ll1 Keron Avery, DO ms3
[2021-12-20 18:54] VITALS: TEMP 97.3
[2021-12-20 18:56] VITALS: BP 111/56; O2SAT 97
== END 2021-12-20 18:13 | disposition home or self-care (01) ==
LOC: ER 16:09
DX: M79.604 Pain in right leg (principal); I50.9 Heart failure, unspecified; I10 Essential (primary) hypertension; I48.91 Unspecified atrial fibrillation
CPT/HCPCS: 93971; 99283

== ENCOUNTER 2022-08-29 06:31 | Day surgery (SDC) | payer OTHER ==
[2022-08-29] MEDS ORDERED: Ringers Lactate 1,000 ML IV ONE (06:39)
[2022-08-29] MEDS ORDERED: LIDOCAINE 1% MPF 5 ML VIAL ONE (07:29)
[2022-08-29] MEDS ORDERED: propofoL 200 MG/20 ML VIAL IV ONE (07:29)
--- NOTE | 2022-08-29 07:51 | ENDO RPT ---
[address], [address] COLONOSCOPY PROCEDURE REPORT EXAM DATE: 08/29/2022 PATIENT NAME: Bryan Nance MR #: [id number] BIRTHDATE: 1945 ATTENDING: Tate Kearney MD STATUS: outpatient ACADEMIC AFFAIRS MANAGER: Chayito Ryan RN and Doente Russell CST INDICATIONS: The patient is a 77 yr old Male here for a colonoscopy due to colon cancer screening and history of polyps PROCEDURE PERFORMED: Colonoscopy MEDICATIONS: Per Anesthesia. ESTIMATED BLOOD LOSS: None CONSENT: The patient understands the risks and benefits of the procedure and understands that these risks include, but are not limited to: sedation, allergic reaction, infection, perforation and/or bleeding. Alternative means of evaluation and treatment include, among others: physical exam, x-rays, and/or surgical intervention. The patient elects to proceed with this endoscopic procedure. DESCRIPTION OF PROCEDURE: During intra-op preparation period all mechanical medical equipment was checked for proper function. Hand hygiene and appropriate measures for infection prevention was taken. Procedure, possible complications, alternatives including, but not limited to possibility of bleeding, perforation, tear, infection, sepsis, need for surgery, need for blood transfusion, were explained to the patient. After the risks, benefits and alternatives of the procedure were thoroughly explained, Informed consent was verified, confirmed and timeout was successfully executed by the treatment team. The patient was placed in the left lateral position. A digital rectal exam was performed and revealed hemorrhoids. After appropriate level of anesthesia, the scope was passed. The [id number] ([id number]) endoscope was introduced through the anus and advanced to the cecum, which was identified by transillumination from the light source, the appendix, and the ileocecal valve. The quality of the prep was fair. The instrument was then slowly withdrawn as the colon was fully examined. Scope withdrawal time was . COLON FINDINGS: Diverticula was found throughout the entire examined colon. The opening was medium sized. Internal and external hemorrhoids were found. Retroflexed views revealed no abnormalities. The scope was then completely withdrawn from the patient and the procedure terminated. ADVERSE EVENTS: There were no complications. IMPRESSIONS: 1. Diverticula throughout the entire examined colon 2. Internal and external hemorrhoids RECOMMENDATIONS: 1. follow-up: office 1-2 week(s) 2. no seeds in diet RECALL: Return in 3 year(s) for Colonoscopy. Tate Kearney MD eSigned: Tate Kearney MD 08/29/2022 7:51 AM cc: Tate Kearney M.D. CPT CODES: ICD9 CODES: PATIENT NAME: Bryan Nance MR#: [id number]
[2022-08-29 08:16] VITALS: TEMP 97.2; O2SAT 100
[2022-08-29 08:26] VITALS: BP 121/57
== END 2022-08-29 08:45 | disposition home or self-care (01) ==
LOC: OR 06:31
PROVIDERS: ATTEND Surgery
PROC: 0DJD8ZZ Inspection of Lower Intestinal Tract, Via Natural or Artificial Opening Endoscopic (ICD-10-PCS; principal; 2022-08-29 07:30)
DX: R19.5 Other fecal abnormalities (principal); I10 Essential (primary) hypertension; E78.00 Pure hypercholesterolemia, unspecified; I51.9 Heart disease, unspecified; K57.30 Diverticulosis of large intestine without perforation or abscess without bleeding; K64.8 Other hemorrhoids; K64.4 Residual hemorrhoidal skin tags
CPT/HCPCS: 45378; J2704; J2001; J7120

== ENCOUNTER 2023-07-22 21:41 | Emergency (ER) | payer OTHER ==
--- OUTSIDE RECORDS SUMMARY | 2023-07-22 21:49 | XMS REPORT | Continuity of Care Document ---
:1945 Author Organization [facility] t Address [address] [facility] [place]. [address] [place] [address] Care Team Providers Name Role Phone Zhao Shetty MD Primary Care Physician [phone] Zhao Shetty Attending Clinician Unavailable Zhao Adams Attending Clinician Unavailable TATE GOETZ Attending Clinician Unavailable XANDER BUCKNER Attending Clinician Unavailable Carlo Corona MD Attending Clinician Henry Dodd MD Attending Clinician MIHIR BEDOLLA Attending Clinician Unavailable ISSAC BAILEY Attending Clinician Unavailable Tate Goetz MD Attending Clinician Doctor Unassigned, [place] Attending Clinician Unavailable Only, Adc Test Attending Clinician Unavailable Pob, Adc Lab Main Attending Clinician Unavailable JAIRON SAMAYOA Attending Clinician Unavailable Joe Sheppard Attending Clinician Zhao Adams Admitting Clinician Unavailable TATE GOETZ Admitting Clinician Unavailable XANDER BUCKNER Admitting Clinician Unavailable Physician, No Primary or Family Admitting Clinician UnavailMIHIR Lozoya Admitting Clinician Unavailable Tate Goetz MD Admitting Clinician Payers Payer Name Policy Type Policy Number Effective Date Expiration Date S ource AET[employer] MEDICARE ADV [id number] 2020 00:00:00 AETNA MEDICARE HMO [id number] 2019 POS PPO 00:00:00 Problems Condition Condition Condition Status Onset Resolution Last Treating Co mments Source Name Details Category Date Date Treatment Clinician Date Bradycardi Bradycardi Disease Active 2020-[address] [facility] SOB SOB Disease Active [facility] (shortness (shortness 3-27 Tyra kes of breath) of breath) 00:00: Me dical 00 Center Abnormal Abnormal Disease Active [facility] t nuclear nuclear 1-14 [facility] stress stress 00:00: Medical test test 00 [place] [id number] 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 [id number] [place] [address] osteoarthr Spirit itis of - CHI right hip [facility] [id number] History of Problem Co mmon CHF Spirit (congestiv - CHI e heart St failure) [facility] [id number] History of Problem Co mmon gout [facility] [id number] Essential Problem Comm on hypertensi Spirit on [facility] [id number] Dyslipidem Problem Co mmon ia Spirit [facility] [id number] Right Problem Common sciatic Spirit nerve pain - [facility] [id number] [place] [address] left hip [facility] [id number] Pain in Problem Common right knee Spirit [facility] [id number] 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 [facility] [id number] Presence Problem Com mon 02 of right Spirit artificial - CHI knee joint [facility] [id number] [place] [address] 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:18:22 l syndrome syndrome Prasanna n (disorder) (disorder) Active Problem 07/22/2020 [facility] Allergies, Adverse Reactions, Alerts Allergy Allergy Status Severity Reaction(s) Onset Inactive Treating Comm ents Source Name Type Date Date Clinician No Known DA Active U 2020-09 [facility] All[facility]ie 10-11 [facility] 00:00: [facility] 00 [facility] NO KNOWN Drug Active Univers ALLERGIE Class ity of S [facility] NO KNOWN Allergy Active [facility] Family History Family Member Diagnosis Comments Start Date Stop Date Source Natural brother Diabetes [facility] Natural mother Hypertension [facility] Natural son Diabetes [facility] Social History Social Habit Start Date Stop Date Quantity Comments Source History of Tobacco Common Spirit - Use [facility] Sexual orientation [facility] Exposure to Not sure University of SARS-CoV-2 (event) [facility] Alcohol intake 2021-07-14 2021-07-14 Ex-drinker [facility] es 00:00:00 00:00:00 (finding) Medical [place] Tobacco use and 2020-12-29 2020-12-29 Never used Universit y of exposure 00:00:00 00:00:00 [facility] Social History 2020-07-20 2020-07-20 Marlen osborne 04:59:59 04:59:59 Sex [birth year] JOCELINE [place] 00:00:00 00:00:00 Medical Center Smoking Status Start Date Stop Date Source Tobacco smoking [facility] consumption unknown Never Smoker Common [facility] - [facility] nter Former smoker 2020-12-29 00:00:00 2020-12-29 [place] [facility] [place] 00:00:00 Medical Branch Medications Ordered Filled Start Stop Current Ordering Indication Dosage Frequency Signature Comments Components Source Medication Medication Date Date Medication? Clinician (SIG) Name Name HYDROcodone HYDROcodone No 1{table QID HYDROcodon -Acetaminop -Acetaminop 3-22 t_as_ne e-Acetamin hen 7.5-325 hen 7.5-325 00:00: eded} ophen MG MG 00 7.5-325 MG HYDROcodone HYDROcodone 0 No 1{table QID HYDROcodon -Acetaminop -Acetaminop 3-22 t_as_ne e-Acetamin hen 7.5-325 hen 7.5-325 00:00: eded} ophen MG MG 00 7.5-325 MG methylPREDN methylPREDN 2021- No methylPRED ISolone 4 ISolone 4 1-08 NISolone 4 MG MG 00:00: MG 00 methylPREDN methylPREDN 2021- No methylPRED ISolone 4 ISolone 4 1-08 NISolone 4 MG MG 00:00: MG 00 methylPREDN methylPREDN 2021- No methylPRED ISolone 4 ISolone 4 1-08 NISolone 4 MG MG 00:00: MG 00 methylPREDN methylPREDN 2021-1 No methylPRED ISolone 4 ISolone 4 1-08 NISolone 4 MG MG 00:00: MG 00 methylPREDN methylPREDN 2021- No methylPRED ISolone 4 ISolone 4 1-08 NISolone 4 MG MG 00:00: MG 00 methylPREDN methylPREDN 2021-1 No methylPRED ISolone 4 ISolone 4 1-08 NISolone 4 MG MG 00:00: MG 00 methylPREDN methylPREDN 2021- No methylPRED ISolone 4 ISolone 4 1-08 NISolone 4 MG MG 00:00: MG 00 methylPREDN methylPREDN 2021-1 No methylPRED ISolone 4 ISolone 4 1-08 NISolone 4 MG MG 00:00: MG 00 traMADol traMADol 2-0 No 1{table traMADol HCl 50 MG HCl 50 MG 9-27 t_as_ne HCl 50 MG 00:00: eded} 00 traMADol traMADol 2-0 No 1{table traMADol HCl 50 MG HCl 50 MG 9-27 t_as_ne HCl 50 MG 00:00: eded} 00 traMADol traMADol 2-0 No 1{table traMADol HCl 50 MG HCl 50 MG 9-27 t_as_ne HCl 50 MG 00:00: eded} 00 traMADol traMADol 2-0 No 1{table traMADol HCl 50 MG HCl 50 MG 9-27 t_as_ne HCl 50 MG 00:00: eded} 00 traMADol traMADol 2-0 No 1{table traMADol HCl 50 MG HCl 50 MG 9-27 t_as_ne HCl 50 MG 00:00: eded} 00 traMADol traMADol 2-0 No 1{table traMADol HCl 50 MG HCl 50 MG 9-27 t_as_ne HCl 50 MG 00:00: eded} 00 traMADol traMADol 2-0 No 1{table traMADol HCl 50 MG HCl 50 MG 9-27 t_as_ne HCl 50 MG 00:00: eded} 00 traMADol traMADol 2-0 No 1{table traMADol HCl 50 MG HCl 50 MG 9-27 t_as_ne HCl 50 MG 00:00: eded} 00 traMADol traMADol 2-0 No 1{table traMADol HCl 50 MG HCl 50 MG 9-27 t_as_ne HCl 50 MG 00:00: eded} 00 traMADol traMADol 2-0 No 1{table traMADol HCl 50 MG HCl 50 MG 9-27 t_as_ne HCl 50 MG 00:00: eded} 00 traMADol traMADol 2-0 No 1{table traMADol HCl 50 MG HCl 50 MG 9-27 t_as_ne HCl 50 MG 00:00: eded} 00 traMADol traMADol 2022-0 No 1{table traMADol HCl 50 MG HCl 50 MG 06-19 t_as_ne HCl 50 MG 00:00: eded} 00 Colin Kenalog 2021-0 No 40mg Common (Triamcinol (Triamcinol 9-19 S pirit one) one) 00:00: - CHI 00 [facility] Naropin Naropin 2021-0 No 5mg Common (Ropivacain (Ropivacain 9-19 S pirit e HCl) e HCl) 00:00: - CHI 00 [facility] Kenalog Kenalog 2021-0 No 40mg Common (Triamcinol (Triamcinol 9-19 S pirit one) one) 00:00: - CHI 00 [facility] Naropin Naropin 2021-0 No 5mg Common (Ropivacain (Ropivacain 9-19 S pirit e HCl) e HCl) 00:00: - CHI 00 [facility] Colin Kenalog 2021-0 No 40mg Common (Triamcinol (Triamcinol 9-19 S pirit one) one) 00:00: - CHI 00 [facility] Naropin Naropin 2-0 No 5mg Common (Ropivacain (Ropivacain 9-19 S pirit e HCl) e HCl) 00:00: - CHI 00 [facility] Kenalog Kenalog 2021-0 No 40mg Common (Triamcinol (Triamcinol 9-19 S pirit one) one) 00:00: - CHI 00 [facility] Naropin Naropin 2-0 No 5mg Common (Ropivacain (Ropivacain 9-19 S pirit e HCl) e HCl) 00:00: - CHI 00 [facility] Kenalog Kenalog 2021-0 No 40mg Common (Triamcinol (Triamcinol 9-19 S pirit one) one) 00:00: - CHI 00 [facility] Naropin Naropin 2-0 No 5mg Common (Ropivacain (Ropivacain 9-19 S pirit e HCl) e HCl) 00:00: - CHI 00 [facility] Kenalog Kenalog 2022-0 No 40mg Common (Triamcinol (Triamcinol 9-19 S pirit one) one) 00:00: - CHI 00 [facility] Naropin Naropin 2-0 No 5mg Common (Ropivacain (Ropivacain 9-19 S pirit e HCl) e HCl) 00:00: - CHI 00 [facility] Kenalog Kenalog 2021-0 No 40mg Common (Triamcinol (Triamcinol 9-19 S pirit one) one) 00:00: - CHI 00 [facility] Naropin Naropin 2021-0 No 5mg Common (Ropivacain (Ropivacain 9-19 S pirit e HCl) e HCl) 00:00: - CHI 00 [facility] Kenalog Kenalog 2021-0 No 40mg Common (Triamcinol (Triamcinol 9-19 S pirit one) one) 00:00: - CHI 00 [facility] Naropin Naropin 2021-0 No 5mg Common (Ropivacain (Ropivacain 9-19 S pirit e HCl) e HCl) 00:00: - CHI 00 [facility] Kenalog Kenalog 2021-0 No 40mg Common (Triamcinol (Triamcinol 9-19 S pirit one) one) 00:00: - CHI 00 [facility] Naropin Naropin 2-0 No 5mg Common (Ropivacain (Ropivacain 9-19 S pirit e HCl) e HCl) 00:00: - CHI 00 [facility] Kenalog Kenalog 2021-0 No 40mg Common (Triamcinol (Triamcinol 9-19 S pirit one) one) 00:00: - CHI 00 [facility] Naropin Naropin 2-0 No 5mg Common (Ropivacain (Ropivacain 9-19 S pirit e HCl) e HCl) 00:00: - CHI 00 [facility] Kenalog Kenalog 2021-0 No 40mg Common (Triamcinol (Triamcinol 9-19 S pirit one) one) 00:00: - CHI 00 [facility] Naropin Naropin 2-0 No 5mg Common (Ropivacain (Ropivacain 9-19 S pirit e HCl) e HCl) 00:00: - CHI 00 [facility] Kenalog Kenalog 2021-0 No 40mg Common (Triamcinol (Triamcinol 9-19 S pirit one) one) 00:00: - CHI 00 [facility] Naropin Naropin 2-0 No 5mg Common (Ropivacain (Ropivacain 9-19 S pirit e HCl) e HCl) 00:00: - CHI 00 [facility] Bupivicaine Bupivicaine 2021-0 No 2.5mg Common [place] 6-14 Spirit 00:00: - CHI 00 [facility] Kenalog Kenalog 2021-0 No 40mg Common (Triamcinol (Triamcinol 6-14 S pirit one) one) 00:00: - CHI 00 [facility] Bupivicaine Bupivicaine 2021-0 No 2.5mg Common [place] 6-14 Spirit 00:00: - CHI 00 [facility] Kenalog Kenalog 2021-0 No 40mg Common (Triamcinol (Triamcinol 6-14 S pirit one) one) 00:00: - CHI 00 [facility] Bupivicaine Bupivicaine 2021-0 No 2.5mg Common [place] 6-14 Spirit 00:00: - CHI 00 [facility] Kenalog Kenalog 2021-0 No 40mg Common (Triamcinol (Triamcinol 6-14 S pirit one) one) 00:00: - CHI 00 [facility] Kenalog Kenalog 2021-0 No 40mg Common (Triamcinol (Triamcinol 6-14 S pirit one) one) 00:00: - CHI 00 [facility] Bupivicaine Bupivicaine 2-0 No 2.5mg Common [place] 6-14 Spirit 00:00: - CHI 00 [facility] Kenalog Kenalog 2021-0 No 40mg Common (Triamcinol (Triamcinol 6-14 S pirit one) one) 00:00: - CHI 00 [facility] Bupivicaine Bupivicaine 2-0 No 2.5mg Common [place] 6-14 Spirit 00:00: - CHI 00 [facility] Kenalog Kenalog 2021-0 No 40mg Common (Triamcinol (Triamcinol 6-14 S pirit one) one) 00:00: - CHI 00 [facility] Bupivicaine Bupivicaine 2-0 No 2.5mg Common [place] 6-14 Spirit 00:00: - CHI 00 [facility] Kenalog Kenalog 2021-0 No 40mg Common (Triamcinol (Triamcinol 6-14 S pirit one) one) 00:00: - CHI 00 [facility] Bupivicaine Bupivicaine 2-0 No 2.5mg Common [place] 6-14 Spirit 00:00: - CHI 00 [facility] Kenalog Kenalog 2021-0 No 40mg Common (Triamcinol (Triamcinol 6-14 S pirit one) one) 00:00: - CHI 00 [facility] Bupivicaine Bupivicaine 2021-0 No 2.5mg Common [place] 6-14 Spirit 00:00: - CHI 00 [facility] Kenalog Kenalog 2021-0 No 40mg Common (Triamcinol (Triamcinol 6-14 S pirit one) one) 00:00: - CHI 00 [facility] Bupivicaine Bupivicaine 2-0 No 2.5mg Common [place] 6-14 Spirit 00:00: - CHI 00 [facility] Kenalog Kenalog 2-0 No 40mg Common (Triamcinol (Triamcinol 6-14 S pirit one) one) 00:00: - CHI 00 [facility] Bupivicaine Bupivicaine 2-0 No 2.5mg Common [place] 6-14 Spirit 00:00: - CHI 00 [facility] Kenalog Kenalog 2-0 No 40mg Common (Triamcinol (Triamcinol 6-14 S pirit one) one) 00:00: - CHI 00 [facility] Bupivicaine Bupivicaine 2-0 No 2.5mg Common [place] 6-14 Spirit 00:00: - CHI 00 [facility] Kenalog Kenalog 2021-0 No 40mg Common (Triamcinol (Triamcinol 6-14 S pirit one) one) 00:00: - CHI 00 [facility] Bupivicaine Bupivicaine 2021-0 No 2.5mg Common [place] 6-14 Spirit 00:00: - CHI [facility] Kenalog Kenalog 2021-0 No 40mg Common (Triamcinol (Triamcinol 6-14 S pirit one) one) 00:00: - CHI 00 [facility] Bupivicaine Bupivicaine 2021-0 No 2.5mg Common [place] 6-14 Spirit 00:00: - CHI 00 [facility] Kenalog Kenalog 2021-0 No 40mg Common (Triamcinol (Triamcinol 6-14 S pirit one) one) 00:00: - CHI [facility] Bupivicaine Bupivicaine 2021-0 No 2.5mg Common [place] 6-14 Spirit 00:00: - CHI 00 [facility] Kenalog Kenalog 2021-0 No 40mg Common (Triamcinol (Triamcinol 6-14 S pirit one) one) 00:00: - CHI 00 [facility] Bupivicaine Bupivicaine 2021-0 No 2.5mg Common [place] 6-14 Spirit 00:00: - CHI [facility] Bupivicaine Bupivicaine 2021-0 No 2.5mg Common [place] 6-14 Spirit 00:00: - CHI 00 [facility] Kenalog Kenalog 2021-0 No 40mg Common (Triamcinol (Triamcinol 6-14 S pirit one) one) 00:00: - CHI [facility] metoprolol 2020-09 Yes 100mg QD Take [address] succinate 0-21 tablet [facility] (TOPROL-XL) 00:00: (100 mg Med ical 100 MG 24 00 total) by Cente r hr tablet mouth daily. metoprolol 2020-09 Yes 100mg QD Take [address] succinate 0-21 tablet [facility] (TOPROL-XL) 00:00: (100 mg Med ical 100 MG 24 00 total) by Cente r hr tablet mouth daily. metoprolol 2020-09 Yes 100mg QD Take [address] succinate 0-21 tablet [facility] (TOPROL-XL) 00:00: (100 mg Med ical 100 MG 24 00 total) by Cente r hr tablet mouth daily. metoprolol 2020-09 Yes 100mg QD Take [address] succinate 0-21 tablet [facility] (TOPROL-XL) 00:00: (100 mg Med ical 100 MG 24 00 total) by Cente r hr tablet mouth daily. metoprolol 2020-09 Yes 100mg QD Take [address] succinate 0-21 tablet [facility] (TOPROL-XL) 00:00: (100 mg Med ical 100 MG 00 total) by Cente r hr tablet mouth daily. potassium 2020-09 Yes 20meq Q.5D Take [address] chloride 0-20 mEq by [facility] (KLOR-CON) 12:37: mouth 2 Medi richard 20 mEq 41 (two) Center packet times daily. allopurinoL 2020-09 Yes 300mg QD Take [address] (ZYLOPRIM) 0-20 mg by [facility] 300 MG 12:37: mouth Medical tablet 41 daily. [place] apixaban 2020-09 Yes 5mg Q.5D Take [address] (Eliquis) 5 0-20 by mouth 2 Tyra kes mg Tab 12:37: (two) Medical tablet 41 times Center daily. furosemide 2020-09 Yes 20mg QD Take [address] (LASIX) 40 0-20 by mouth [facility] MG tablet 12:37: daily . Medic al 41 [place] aspirin 81 2020-09 Yes 81mg QD Take [address] MG EC 0-20 by mouth [facility] tablet 12:37: daily. Medical 41 [place] atorvastati 2020-09 Yes 40mg QD Take [address] n (Lipitor) 0-20 by mouth Luke s 40 MG 12:37: daily. Medical tablet 41 [place] cholecalcif 2020-09 Yes 2000U QD Take 2,[address] justine, 0-20 Units by [facility] vitamin D3, 12:37: mouth Medic al 50 mcg 41 daily. [place] (2,000 unit) Cap EMPAGLIFLOZ 2020-09 Yes 5mg QD Take [address] IN ORAL 0-20 by mouth [facility] 12:37: daily. [address] potassium 2020-09 Yes 20meq Q.5D Take [address] chloride 0-20 mEq by [facility] (KLOR-CON) 12:37: mouth 2 Medi richard 20 mEq 41 (two) Center packet times daily. allopurinoL 2020-09 Yes 300mg QD Take [address] (ZYLOPRIM) 0-20 mg by [facility] 300 MG 12:37: mouth Medical tablet 41 daily. [place] apixaban 2020-09 Yes 5mg Q.5D Take [address] (Eliquis) 5 0-20 by mouth 2 Tyra kes mg Tab 12:37: (two) Medical tablet 41 times Center daily. furosemide 2020-09 Yes 20mg QD Take [address] (LASIX) 40 0-20 by mouth [facility] MG tablet 12:37: daily . Medic al 41 [place] aspirin 81 2020-09 Yes 81mg QD Take [address] MG EC 0-20 by mouth [facility] tablet 12:37: daily. [address] atorvastati 2020-09 Yes 40mg QD Take [address] n (Lipitor) 0-20 by mouth Luke s 40 MG 12:37: daily. Medical tablet 41 [place] cholecalcif 2020-09 Yes 2000U QD Take 2,[address] justine, 0-20 Units by [facility] vitamin D3, 12:37: mouth Medic al 50 mcg 41 daily. [place] (2,000 unit) Cap EMPAGLIFLOZ 2020-09 Yes 5mg QD Take [address] IN ORAL 0-20 by mouth [facility] 12:37: daily. [address] potassium 2020-09 Yes 20meq Q.5D Take [address] chloride 0-20 mEq by [facility] (KLOR-CON) 12:37: mouth 2 Medi richard 20 mEq 41 (two) Center packet times daily. allopurinoL 2020-09 Yes 300mg QD Take [address] (ZYLOPRIM) 0-20 mg by [facility] 300 MG 12:37: mouth Medical tablet 41 daily. [place] apixaban 2020-09 Yes 5mg Q.5D Take [address] (Eliquis) 5 0-20 by mouth 2 Tyra kes mg Tab 12:37: (two) Medical tablet 41 times Center daily. furosemide 2020-09 Yes 20mg QD Take [address] (LASIX) 40 0-20 by mouth [facility] MG tablet 12:37: daily . Medic al 41 [place] aspirin 81 2020-09 Yes 81mg QD Take [address] MG EC 0-20 by mouth [facility] tablet 12:37: daily. [address] atorvastati 2020-09 Yes 40mg QD Take [address] n (Lipitor) 0-20 by mouth Luke s 40 MG 12:37: daily. Medical tablet 41 [place] cholecalcif 2020-09 Yes 2000U QD Take 2,[address] justine, 0-20 Units by [facility] vitamin D3, 12:37: mouth Medic al 50 mcg 41 daily. [place] (2,000 unit) Cap EMPAGLIFLOZ 2020-09 Yes 5mg QD Take [address] IN ORAL 0-20 by mouth [facility] 12:37: daily. [address] potassium 2020-09 Yes 20meq Q.5D Take [address] chloride 0-20 mEq by [facility] (KLOR-CON) 12:37: mouth 2 Medi richard 20 mEq 41 (two) Center packet times daily. allopurinoL 2020-09 Yes 300mg QD Take [address] (ZYLOPRIM) 0-20 mg by [facility] 300 MG 12:37: mouth Medical tablet 41 daily. [place] apixaban 2020-09 Yes 5mg Q.5D Take [address] (Eliquis) 5 0-20 by mouth 2 Tyra kes mg Tab 12:37: (two) Medical tablet 41 times Center daily. furosemide 2020-09 Yes 20mg QD Take [address] (LASIX) 40 0-20 by mouth [facility] MG tablet 12:37: daily . Medic al 41 [place] aspirin 81 2020-09 Yes 81mg QD Take [address] MG EC 0-20 by mouth [facility] tablet 12:37: daily. [address] atorvastati 2020-09 Yes 40mg QD Take [address] n (Lipitor) 0-20 by mouth Luke s 40 MG 12:37: daily. Medical tablet 41 [place] cholecalcif 2020-09 Yes 2000U QD Take 2,[address] justine, 0-20 Units by [facility] vitamin D3, 12:37: mouth Medic al 50 mcg 41 daily. [place] (2,000 unit) Cap EMPAGLIFLOZ 2020-09 Yes 5mg QD Take [address] IN ORAL 0-20 by mouth [facility] 12:37: daily. [address] potassium 2020-09 Yes 20meq Q.5D Take [address] chloride 0-20 mEq by [facility] (KLOR-CON) 12:37: mouth 2 Medi richard 20 mEq 41 (two) Center packet times daily. allopurinoL 2020-09 Yes 300mg QD Take [address] (ZYLOPRIM) 0-20 mg by [facility] 300 MG 12:37: mouth Medical tablet 41 daily. [place] apixaban 2020-09 Yes 5mg Q.5D Take [address] (Eliquis) 5 0-20 by mouth 2 Tyra kes mg Tab 12:37: (two) Medical tablet 41 times Center daily. furosemide 2020-09 Yes 20mg QD Take [address] (LASIX) 40 0-20 by mouth [facility] MG tablet 12:37: daily . Medic al 41 [place] aspirin 81 2020-09 Yes 81mg QD Take [address] MG EC 0-20 by mouth [facility] tablet 12:37: daily. [address] atorvastati 2020-09 Yes 40mg QD Take [address] n (Lipitor) 0-20 by mouth Luke s 40 MG 12:37: daily. Medical tablet 41 [place] cholecalcif 2020-09 Yes 2000U QD Take 2,[address] justine, 0-20 Units by [facility] vitamin D3, 12:37: mouth Medic al 50 mcg 41 daily. [place] (2,000 unit) Cap EMPAGLIFLOZ 2020-09 Yes 5mg QD Take [address] IN ORAL 0-20 by mouth [facility] 12:37: daily. [address] blood-gluco 2020-09- No Use as [facility] se meter 0-20 10-20 instructed Luke s kit 00:00: 23:59 . Medical 00 :00 [place] metFORMIN 2020-09- No 500mg Take [address] (GLUCOPHAGE 0-20 10-20 tablet [facility] ) 500 MG 00:00: 23:59 (500 mg Medic al tablet 00 :00 total) by Center mouth 2 (two) times daily with breakfast and dinner. blood-gluco 2020-09- No Use as [facility] se meter 0-20 10-20 instructed Luke s kit 00:00: 23:59 . Medical 00 :00 [place] metFORMIN 2020-09- No 500mg Take [address] (GLUCOPHAGE 0-20 10-20 tablet [facility] ) 500 MG 00:00: 23:59 (500 mg Medic al tablet 00 :00 total) by Center mouth 2 (two) times daily with breakfast and dinner. blood-gluco 2020-09- No Use as [facility] se meter 0-20 10-20 instructed Luke s kit 00:00: 23:59 . Medical 00 :00 [place] metFORMIN 2020-09- No 500mg Take [address] (GLUCOPHAGE 0-20 10-20 tablet [facility] ) 500 MG 00:00: 23:59 (500 mg Medic al tablet 00 :00 total) by Center mouth 2 (two) times daily with breakfast and dinner. potassium Yes 20meq Take 20 Univ ers chloride 20 4-08 mEq by ity of mEq packet 15:49: mouth [place] (two) Medical times Branch daily. aspirin Yes 81mg Take 81 mg Univ ers (ASPIRIN 4-08 by mouth ity of LOW DOSE) 15:49: daily. [place] 81 mg Medical tablet Branch metoprolol Yes 100mg Take 100 Un miguelito succinate 4-08 mg by ity of XL 100 mg 15:49: mouth 2 [place] 24 hr (two) Medical tablet times Branch daily. simvastatin Yes 20mg Take 20 mg Univers 20 mg 4-08 by mouth ity of tablet 15:49: at [place] [address] bedtime. Medical Branch apixaban 0 Yes 5mg Take 5 mg Univ ers (ELIQUIS) 5 4-08 by mouth 2 it y of mg tablet 15:49: (two) [place] [address] times Medical daily. Branch allopurinoL Yes 300mg Take 300 U nivers 300 mg 4-08 mg by ity of tablet 15:49: mouth [place] 01 daily. Medical Branch lisinopriL Yes 10mg Take 10 mg U nivers 10 mg 4-08 by mouth ity of tablet 15:49: daily. [place] Medical Branch furosemide 2020-0 Yes 20mg Take 20 mg U nivers (LASIX) 20 4-08 by mouth ity o f mg tablet 15:49: every morning Medical and Branch evening. rosuvastati Yes 20mg Take 20 mg Univers n 20 mg 4-08 by mouth ity of tablet 15:49: at [place] bedtime. Medical Branch ALPRAZolam Yes .25mg Take [...] by mouth ity of tablet 15:49: at [place] bedtime. Medical Branch apixaban Yes 5mg Take 5 mg Univ ers (ELIQUIS) 5 4-08 by mouth 2 it y of mg tablet 15:49: (two) [place] times Medical daily. Branch allopurinoL Yes 300mg Take 300 U nivers 300 mg 4-08 mg by ity of tablet 15:49: mouth [place] daily. Medical Branch lisinopriL Yes 10mg Take 10 mg U nivers 10 mg 4-08 by mouth ity of tablet 15:49: daily. [place] [facility] furosemide 0 Yes 20mg Take 20 mg U nivers (LASIX) 20 4-08 by mouth ity o f mg tablet 15:49: every morning Medical and Branch evening. rosuvastati Yes 20mg Take 20 mg Univers n 20 mg 4-08 by mouth ity of tablet 15:49: at [place] bedtime. Medical Branch ALPRAZolam Yes .25mg Take [...] by mouth ity of tablet 15:49: at [place] bedtime. Medical Branch apixaban Yes 5mg Take 5 mg Univ ers (ELIQUIS) 5 4-08 by mouth 2 it y of mg tablet 15:49: (two) times Medical daily. Branch allopurinoL Yes 300mg Take 300 U nivers 300 mg 4-08 mg by ity of tablet 15:49: mouth daily. Medical Branch lisinopriL Yes 10mg Take [...] by mouth ity of tablet 15:49: at bedtime. Medical Branch ALPRAZolam Yes .25mg Take [...] acetaminoph Yes 1{tbl} 1 tablet, Univers en-codeine 408 Oral, PRN, ity of (TYLENOL 14:42: 1 dose, [place] #3) 300-30 47 Starting Medic al mg tablet 1 Sat12/29/20 Br anch tablet at 0942, Until Discontinu ed, Routine, Pain (scale 4-6), DSU Recovery acetaminoph Yes 650mg 650 mg, Un miguelito en 12-29 Oral, ity of (TYLENOL) 14:42: Q6HPRN, [place] tablet 650 47 Starting Medic al mg Radha 12/29/20 Branch at 0942, Until Discontinu ed, Routine, Pain (scale 1-3), DSU Recovery HYDROcodone 2020- No 1{tbl} 1 tablet, Univers -acetaminop 12-29 Oral, ity of hen (NORCO) 14:42: 17:49 Q6HPRN, [place] 10-325 mg 47 :01 Starting Medica l tablet 1 Sat12/29/20 Branc h tablet at 0942, Until Radha 12/29/20 at 1249, Routine, Pain (scale 7-10), DSU Recovery acetaminoph 2020- No 1{tbl} 1 tablet, Univers en-codeine 12-29 Oral, PRN, it y of (TYLENOL 14:42: 17:49 1 dose, [place] #3) 300-30 47 :01 Starting Medic al mg tablet 1 Sat12/29/20 Br anch tablet at 0942, Until Radha 12/29/20 at 1249, Routine, Pain (scale 4-6), DSU Recovery acetaminoph 2020- No 650mg 650 mg, U nivers en 12-29 Oral, ity of (TYLENOL) 14:42: 17:49 Q6HPRN, [place] tablet 650 47 :01 Starting Medic al mg Radha 12/29/20 Branch at 0942, Until 12/29/21 at 1249, Routine, Pain (scale 1-3), DSU Recovery bupivacaine Yes PRN, Univer s liposome 08 Starting ity of (PF) 14:08: Radha 12/29/20 [place] (EXPAREL 00 at 0908, Medical (PF)) 1.3 % Until Branch (13.3 Discontinu mg/mL) ed, injection Routine, Intra-op lactated 2020- No 1000mL at 42 Unive rs ringers IV 408 04-08 mL/hr, ity of infusion 12:15: 12:23 1,000 mL, Reji as 1,000 mL 00 :00 IV Medical Infusion, Branch ONCE, 1 dose, Radha 12/29/20 at 0715, Routine, DSU Pre-op lactated 2020- No 1000mL at 42 Unive rs ringers IV 4-08 04-08 mL/hr, ity of infusion 12:15: 12:23 1,000 mL, Reij as 1,000 mL 00 :00 IV Medical Infusion, Branch ONCE, 1 dose, Radha 12/29/20 at 0715, Routine, DSU Pre-op simvastatin Yes 20mg Take 20 mg [facility] 20 mg 4-05 by mouth ity of tablet 18:59: at [place] [address] bedtime. Medical Branch rosuvastati Yes 20mg Take 20 mg Univers n 20 mg 4-05 by mouth ity of tablet 18:59: at [place] [address] bedtime. Medical Branch ALPRAZolam Yes .25mg Take 0.25 U nivers (XANAX) 4-05 mg by ity of 0.25 mg 18:59: mouth 2 [place] tablet 06 (two) Medical times Branch daily. simvastatin Yes 20mg Take 20 mg [facility] 20 mg 4-05 by mouth ity of tablet 18:59: at [place] [address] bedtime. Medical Branch rosuvastati Yes 20mg Take 20 mg Univers n 20 mg 4-05 by mouth ity of tablet 18:59: at [place] 06 bedtime. Medical Branch ALPRAZolam Yes .25mg Take 0.25 U nivers (XANAX) 4-05 mg by ity of 0.25 mg 18:59: mouth 2 [place] tablet 06 (two) Medical times Branch daily. simvastatin 0 Yes 20mg Take 20 mg [facility] 20 mg 4-05 by mouth ity of tablet 18:59: at [place] [address] bedtime. Medical Branch rosuvastati 0 Yes 20mg Take 20 mg Univers n 20 mg 4-05 by mouth ity of tablet 18:59: at [place] [address] bedtime. Medical Branch ALPRAZolam 0 Yes .25mg Take 0.25 U nivers (XANAX) 4-05 mg by ity of 0.25 mg 18:59: mouth 2 [place] tablet 06 (two) Medical times Branch daily. aspirin 0 Yes 81mg Take 81 mg Univ ers (ASPIRIN 4-05 by mouth ity of LOW DOSE) 18:42: daily. [place] 81 mg EC 38 Medical tablet Branch metoprolol 0 Yes 100mg Take 100 Un miguelito succinate 4-05 mg by ity of XL 100 mg 18:42: mouth 2 [place] 24 hr 38 (two) Medical tablet times Branch daily. apixaban 0 Yes 5mg Take 5 mg Univ ers (ELIQUIS) 5 4-05 by mouth 2 it y of mg tablet 18:42: (two) [place] [address] times Medical daily. Branch allopurinoL 0 Yes 300mg Take 300 U nivers 300 mg 4-05 mg by ity of tablet 18:42: mouth [place] [address] daily. Medical Branch lisinopriL 0 Yes 10mg Take 10 mg U nivers 10 mg 4-05 by mouth ity of tablet 18:42: daily. [place] [address] Medical Branch furosemide 2020-0 Yes 20mg Take 20 mg U nivers (LASIX) 20 4-05 by mouth ity o f mg tablet 18:42: every [place] [address] morning Medical and Branch evening. aspirin 0 Yes 81mg Take 81 mg Univ ers (ASPIRIN 4-05 by mouth ity of LOW DOSE) 18:42: daily. [place] 81 mg EC 38 Medical tablet Branch metoprolol 0 Yes 100mg Take 100 Un miguelito succinate 4-05 mg by ity of XL 100 mg 18:42: mouth 2 [place] 24 hr 38 (two) Medical tablet times Branch daily. apixaban 2020-0 Yes 5mg Take 5 mg Univ ers (ELIQUIS) 5 4-05 by mouth 2 it y of mg tablet 18:42: (two) [place] [address] times Medical daily. Branch allopurinoL 0 Yes 300mg Take 300 U nivers 300 mg 4-05 mg by ity of tablet 18:42: mouth [place] [address] daily. Medical Branch lisinopriL 0 Yes 10mg Take 10 mg U nivers 10 mg 4-05 by mouth ity of tablet 18:42: daily. [place] [address] Medical Branch furosemide 2020-0 Yes 20mg Take 20 mg U nivers (LASIX) 20 4-05 by mouth ity o f mg tablet 18:42: every [place] [address] morning Medical and Branch evening. aspirin 0 Yes 81mg Take 81 mg Univ ers (ASPIRIN 4-05 by mouth ity of LOW DOSE) 18:42: daily. [place] 81 mg 38 Medical tablet Branch metoprolol 0 Yes 100mg Take 100 Un miguelito succinate 4-05 mg by ity of XL 100 mg 18:42: mouth 2 [place] 24 hr 38 (two) Medical tablet times Branch daily. apixaban 0 Yes 5mg Take 5 mg Univ ers (ELIQUIS) 5 4-05 by mouth 2 it y of mg tablet 18:42: (two) [place] [address] times Medical daily. Branch allopurinoL 0 Yes 300mg Take 300 U nivers 300 mg 4-05 mg by ity of tablet 18:42: mouth [place] [address] daily. Medical Branch lisinopriL 0 Yes 10mg Take 10 mg U nivers 10 mg 4-05 by mouth ity of tablet 18:42: daily. [place] [address] Medical Branch furosemide 2020-0 Yes 20mg Take 20 mg U nivers (LASIX) 20 4-05 by mouth ity o f mg tablet 18:42: every [place] [address] morning Medical and Branch evening. potassium 2020-0 Yes 20meq Take 20 Univ ers chloride 20 4-05 mEq by ity of mEq packet 18:42: mouth [place] (two) Medical times Branch daily. potassium 2020-0 Yes 20meq Take 20 Univ ers chloride 20 4-05 mEq by ity of mEq packet 18:42: mouth 2 [place] (two) Medical times Branch daily. potassium 2020-0 Yes 20meq Take 20 Univ ers chloride 20 4-05 mEq by ity of mEq packet 18:42: mouth [place] (two) Medical times Branch daily. lisinopriL 2021-0 Yes 40mg QD Take 2 [facility] (PRINIVIL,Z 1-14 tablets [facility] ESTRIL) 20 00:00: (40 mg Medic al MG tablet 00 total) by Cente r mouth daily. lisinopriL 2021-0 Yes 40mg QD Take 2 [facility] (PRINIVIL,Z 1-14 tablets [facility]) 20 00:00: (40 mg Medic al MG tablet 00 total) by Cente r mouth daily. lisinopriL 2021-0 Yes 40mg QD Take 2 [facility] (PRINIVIL,Z 1-14 tablets [facility]) 20 00:00: (40 mg Medic al MG tablet 00 total) by Cente r mouth daily. lisinopriL 2021-0 Yes 40mg QD Take 2 [facility] (PRINIVIL,Z 1-14 tablets [facility]) 20 00:00: (40 mg Medic al MG tablet 00 total) by Cente r mouth daily. lisinopriL 2021-0 Yes 40mg QD Take 2 [facility] (PRINIVIL,Z 1-14 tablets [facility]) 20 00:00: (40 mg Medic al MG tablet 00 total) by Cente r mouth daily. Bupivicaine Bupivicaine 2020-0 No 5mL [facility] [place] 1-16 [facility] 00:00: - [facility] Kenalog Kenalog 2020-0 No 1mL Common (Triamcinol (Triamcinol 1-16 S pirit one) one) 00:00: - [facility] Bupivicaine Bupivicaine 2020-0 No 5mL [facility] [place] 1-16 [facility] 00:00: - [facility] Kenalog Kenalog 2020-0 No 1mL [facility] (Triamcinol (Triamcinol 1-16 S pirit one) one) 00:00: - [facility] Bupivicaine Bupivicaine 2020-0 No 5mL [facility] [place] 1-16 [facility] 00:00: - [facility] Kenalog Kenalog 2020-0 No 1mL Common (Triamcinol (Triamcinol 1-16 S pirit one) one) 00:00: - [facility] Bupivicaine Bupivicaine 2020-0 No 5mL [facility] [place] 1-16 [facility] 00:00: - [facility] Kenalog Kenalog 2020-0 No 1mL [facility] (Triamcinol (Triamcinol 1-16 S pirit one) one) 00:00: - [facility] Bupivicaine Bupivicaine 2020-0 No 5mL [facility] [place] 1-16 [facility] 00:00: - [facility] Kenalog Kenalog 2020-0 No 1mL Common (Triamcinol (Triamcinol 1-16 S pirit one) one) 00:00: - [facility] Bupivicaine Bupivicaine 2020-0 No 5mL [facility] [place] 1-16 [facility] 00:00: - [facility] Kenalog Kenalog 2020-0 No 1mL Common (Triamcinol (Triamcinol 1-16 S pirit one) one) 00:00: - [facility] Bupivicaine Bupivicaine 2020-0 No 5mL [facility] [place] 1-16 [facility] 00:00: - [facility] Kenalog Kenalog 2020-0 No 1mL Common (Triamcinol (Triamcinol 1-16 S pirit one) one) 00:00: - [facility] Bupivicaine Bupivicaine 2020-0 No 5mL [facility] [place] 1-16 [facility] 00:00: - [facility] Kenalog Kenalog 2020-0 No 1mL Common (Triamcinol (Triamcinol 1-16 S pirit one) one) 00:00: - [facility] Bupivicaine Bupivicaine 2020-0 No 5mL [facility] [place] 1-16 [facility] 00:00: - [facility] Kenalog Kenalog 2020-0 No 1mL Common (Triamcinol (Triamcinol 1-16 S pirit one) one) 00:00: - [facility] Bupivicaine Bupivicaine 2020-0 No 5mL [facility] [place] 1-16 [facility] 00:00: - [facility] Kenalog Kenalog 2020-0 No 1mL Common (Triamcinol (Triamcinol 1-16 S pirit one) one) 00:00: - [facility] Bupivicaine Bupivicaine 2020-0 No 5mL [facility] [place] 1-16 [facility] 00:00: - [facility] Kenalog Kenalog 2020-0 No 1mL Common (Triamcinol (Triamcinol 1-16 S pirit one) one) 00:00: - [facility] Bupivicaine Bupivicaine 2020-0 No 5mL [facility] [place] 1-16 [facility] 00:00: - [facility] Kenalog Kenalog 2020-0 No 1mL Common (Triamcinol (Triamcinol 1-16 S pirit one) one) 00:00: - [facility] Bupivicaine Bupivicaine 2020-0 No 5mL [facility] [place] 1-16 [facility] 00:00: - [facility] Kenalog Kenalog 2020-0 No 1mL Common (Triamcinol (Triamcinol 1-16 S pirit one) one) 00:00: - [facility] Bupivicaine Bupivicaine 2020-0 No 5mL [facility] [place] 1-16 [facility] 00:00: - [facility] Kenalog Kenalog 2020-0 No 1mL Common (Triamcinol (Triamcinol 1-16 S pirit one) one) 00:00: - [facility] Bupivicaine Bupivicaine 2020-0 No 5mL [facility] [place] 1-16 [facility] 00:00: - [facility] Kenalog Kenalog 2020-0 No 1mL Common (Triamcinol (Triamcinol 1-16 S pirit one) one) 00:00: - [facility] Bupivicaine Bupivicaine 2020-0 No 5mL [facility] [place] 1-16 [facility] 00:00: - [facility] Kenalog Kenalog 2020-0 No 1mL Common (Triamcinol (Triamcinol 1-16 S pirit one) one) 00:00: - [facility] Bupivicaine Bupivicaine 2019-0 No 2.5mg [facility] [place] 2-04 [facility] 00:00: - [facility] Hyalgan 20 Hyalgan 20 2019-0 No 20mg C ommon mg mg 2-04 Spirit 00:00: - [facility] Bupivicaine Bupivicaine 2019-0 No 2.5mg [facility] [place] 2-04 [facility] 00:00: - [facility] Hyalgan 20 Hyalgan 20 2019-0 No 20mg C ommon mg mg 2-04 Spirit 00:00: - [facility] Bupivicaine Bupivicaine 2019-0 No 2.5mg [facility] [place] 2-04 [facility] 00:00: - [facility] Hyalgan 20 Hyalgan 20 2019-0 No 20mg C ommon mg mg 2-04 Spirit 00:00: - [facility] Hyalgan 20 Hyalgan 20 2019-0 No 20mg C ommon mg mg 2-04 Spirit 00:00: - [facility] Bupivicaine Bupivicaine 2019-0 No 2.5mg [facility] [place] 2-04 [facility] 00:00: - [facility] Hyalgan 20 Hyalgan 20 2019-0 No 20mg C ommon mg mg 2-04 Spirit 00:00: - [facility] Bupivicaine Bupivicaine 2019-0 No 2.5mg [facility] [place] 2-04 [facility] 00:00: - [facility] Hyalgan 20 Hyalgan 20 2019-0 No 20mg C ommon mg mg 2-04 Spirit 00:00: - [facility] Bupivicaine Bupivicaine 2019-0 No 2.5mg [facility] [place] 2-04 [facility] 00:00: - [facility] Hyalgan 20 Hyalgan 20 2019-0 No 20mg C ommon mg mg 2-04 Spirit 00:00: - [facility] Bupivicaine Bupivicaine 2019-0 No 2.5mg [facility] [place] 2-04 [facility] 00:00: - [facility] Hyalgan 20 Hyalgan 20 2019-0 No 20mg C ommon mg mg 2-04 Spirit 00:00: - [facility] Bupivicaine Bupivicaine 2019-0 No 2.5mg [facility] [place] 2-04 [facility] 00:00: - [facility] Hyalgan 20 Hyalgan 20 2019-0 No 20mg C ommon mg mg 204 Spirit 00:00: - [facility] Bupivicaine Bupivicaine 2019-0 No 2.5mg [facility] [place] 2-04 [facility] 00:00: - [facility] Hyalgan 20 Hyalgan 20 2019-0 No 20mg C ommon mg mg 204 Spirit 00:00: - [facility] Bupivicaine Bupivicaine 2019-0 No 2.5mg [facility] [place] 2-04 [facility] 00:00: - [facility] Hyalgan 20 Hyalgan 20 2019-0 No 20mg C ommon mg mg 204 Spirit 00:00: - [facility] Bupivicaine Bupivicaine 2019-0 No 2.5mg [facility] [place] 2-04 [facility] 00:00: - [facility] Hyalgan 20 Hyalgan 20 2019-0 No 20mg C ommon mg mg 204 Spirit 00:00: - [facility] Bupivicaine Bupivicaine 2019-0 No 2.5mg [facility] [place] 2-04 [facility] 00:00: - [facility] Hyalgan 20 Hyalgan 20 2019-0 No 20mg C ommon mg mg 204 Spirit 00:00: - [facility] Bupivicaine Bupivicaine 2019-0 No 2.5mg [facility] [place] 2-04 [facility] 00:00: - [facility] Hyalgan 20 Hyalgan 20 2019-0 No 20mg C ommon mg mg 2-04 Spirit 00:00: - [facility] Bupivicaine Bupivicaine 2019-0 No 2.5mg [facility] [place] 2-04 [facility] 00:00: - [facility] Hyalgan 20 Hyalgan 20 2019-0 No 20mg C ommon mg mg 2-04 Spirit 00:00: - [facility] Bupivicaine Bupivicaine 2019-0 No 2.5mg [facility] [place] 2- [facility] 00:00: - [facility] Bupivicaine Bupivicaine 2019-0 No 2.5mg [facility] [place] 2- [facility] 00:00: - [facility] Hyalgan 20 Hyalgan 20 2019-0 No 20mg C ommon mg mg 10-27 Spirit 00:00: - [facility] Hyalgan 20 Hyalgan 20 2019-0 No 20mg C ommon mg mg 10-20 Spirit 00:00: - [facility] Bupivicaine Bupivicaine 2019-0 No 2.5mg [facility] [place] 10-20 [facility] 00:00: - [facility] Hyalgan 20 Hyalgan 20 2019-0 No 20mg C ommon mg mg 10-20 Spirit 00:00: - [facility] Bupivicaine Bupivicaine 2019-0 No 2.5mg [facility] [place] 10-20 [facility] 00:00: - [facility] Hyalgan 20 Hyalgan 20 2019-0 No 20mg C ommon mg mg 10-20 Spirit 00:00: - [facility] Bupivicaine Bupivicaine 2019-0 No 2.5mg [facility] [place] 10-20 [facility] 00:00: - [facility] Hyalgan 20 Hyalgan 20 2019-0 No 20mg C ommon mg mg 10-20 Spirit 00:00: - [facility] Bupivicaine Bupivicaine 2019-0 No 2.5mg [facility] [place] 10-20 [facility] 00:00: - [facility] Hyalgan 20 Hyalgan 20 2019-0 No 20mg C ommon mg mg 10-20 Spirit 00:00: - [facility] Bupivicaine Bupivicaine 2019-0 No 2.5mg [facility] [place] 10-20 [facility] 00:00: - [facility] Hyalgan 20 Hyalgan 20 2019-0 No 20mg C ommon mg mg 10-20 Spirit 00:00: - [facility] Bupivicaine Bupivicaine 2019-0 No 2.5mg [facility] [place] 10-20 [facility] 00:00: - [facility] Hyalgan 20 Hyalgan 20 2019-0 No 20mg C ommon mg mg 10-20 Spirit 00:00: - [facility] Bupivicaine Bupivicaine 2019-0 No 2.5mg [facility] [place] 10-20 [facility] 00:00: - [facility] Hyalgan 20 Hyalgan 20 2019-0 No 20mg C ommon mg mg 10-20 Spirit 00:00: - [facility] Bupivicaine Bupivicaine 2019-0 No 2.5mg [facility] [place] 10-20 [facility] 00:00: - [facility] Hyalgan 20 Hyalgan 20 2019-0 No 20mg C ommon mg mg 10-20 Spirit 00:00: - [facility] Bupivicaine Bupivicaine 2019-0 No 2.5mg [facility] [place] 10-20 [facility] 00:00: - [facility] Hyalgan 20 Hyalgan 20 2019-0 No 20mg C ommon mg mg 10-20 Spirit 00:00: - [facility] Bupivicaine Bupivicaine 2019-0 No 2.5mg [facility] [place] 10-20 [facility] 00:00: - [facility] Hyalgan 20 Hyalgan 20 2019-0 No 20mg C ommon mg mg 10-20 Spirit 00:00: - [facility] Bupivicaine Bupivicaine 2019-0 No 2.5mg [facility] [place] 10-20 [facility] 00:00: - [facility] Hyalgan 20 Hyalgan 20 2019-0 No 20mg C ommon mg mg 10-20 Spirit 00:00: - [facility] Bupivicaine Bupivicaine 2019-0 No 2.5mg [facility] [place] 10-20 [facility] 00:00: - [facility] Hyalgan 20 Hyalgan 20 2019-0 No 20mg C ommon mg mg 10-20 Spirit 00:00: - [facility] Bupivicaine Bupivicaine 2019-0 No 2.5mg [facility] [place] 10-20 [facility] 00:00: - [facility] Hyalgan 20 Hyalgan 20 2019-0 No 20mg C ommon mg mg 10-20 Spirit 00:00: - [facility] Bupivicaine Bupivicaine 2019-0 No 2.5mg [facility] [place] 10-20 [facility] 00:00: - [facility] Hyalgan 20 Hyalgan 20 2019-0 No 20mg C ommon mg mg 10-20 Spirit 00:00: - [facility] Bupivicaine Bupivicaine 2019-0 No 2.5mg [facility] [place] 10-20 [facility] 00:00: - [facility] Hyalgan 20 Hyalgan 20 2019-0 No 20mg C ommon mg mg 10-20 Spirit 00:00: - [facility] Bupivicaine Bupivicaine 2019-0 No 2.5mg [facility] [place] 10-20 [facility] 00:00: - [facility] Hyalgan 20 Hyalgan 20 2019-0 No 20mg C ommon mg mg 09-29 Spirit 00:00: - [facility] Bupivicaine Bupivicaine 2019-0 No 2.5mg [facility] [place] 09-29 [facility] 00:00: - [facility] Hyalgan 20 Hyalgan 20 2019-0 No 20mg C ommon mg mg 09-29 Spirit 00:00: - [facility] Bupivicaine Bupivicaine 2019-0 No 2.5mg [facility] [place] 09-29 [facility] 00:00: - [facility] Hyalgan 20 Hyalgan 20 2019-0 No 20mg C ommon mg mg 09-29 Spirit 00:00: - [facility] Bupivicaine Bupivicaine 2019-0 No 2.5mg [facility] [place] 09-29 [facility] 00:00: - [facility] Bupivicaine Bupivicaine 2019-0 No 2.5mg [facility] [place] 09-29 [facility] 00:00: - [facility] Hyalgan 20 Hyalgan 20 2019-0 No 20mg C ommon mg mg 09-29 Spirit 00:00: - [facility] Bupivicaine Bupivicaine 2019-0 No 2.5mg [facility] [place] 09-29 [facility] 00:00: - [facility] Hyalgan 20 Hyalgan 20 2019-0 No 20mg C ommon mg mg 09-29 Spirit 00:00: - [facility] Bupivicaine Bupivicaine 2019-0 No 2.5mg [facility] [place] 09-29 [facility] 00:00: - [facility] Hyalgan 20 Hyalgan 20 2019-0 No 20mg C ommon mg mg 09-29 Spirit 00:00: - [facility] Bupivicaine Bupivicaine 2019-0 No 2.5mg [facility] [place] 09-29 [facility] 00:00: - [facility] Hyalgan 20 Hyalgan 20 2019-0 No 20mg C ommon mg mg 09-29 Spirit 00:00: - [facility] Bupivicaine Bupivicaine 2019-0 No 2.5mg [facility] [place] 09-29 [facility] 00:00: - [facility] Hyalgan 20 Hyalgan 20 2019-0 No 20mg C ommon mg mg 09-29 Spirit 00:00: - [facility] Bupivicaine Bupivicaine 2019-0 No 2.5mg [facility] [place] 09-29 [facility] 00:00: - [facility] Hyalgan 20 Hyalgan 20 2019-0 No 20mg C ommon mg mg 09-29 Spirit 00:00: - [facility] Bupivicaine Bupivicaine 2019-0 No 2.5mg [facility] [place] 09-29 [facility] 00:00: - [facility] Hyalgan 20 Hyalgan 20 2019-0 No 20mg C ommon mg mg 09-29 Spirit 00:00: - [facility] Bupivicaine Bupivicaine 2019-0 No 2.5mg [facility] [place] 09-29 [facility] 00:00: - [facility] Hyalgan 20 Hyalgan 20 2019-0 No 20mg C ommon mg mg 09-29 Spirit 00:00: - [facility] Bupivicaine Bupivicaine 2019-0 No 2.5mg [facility] [place] 09-29 [facility] 00:00: - [facility] Hyalgan 20 Hyalgan 20 2019-0 No 20mg C ommon mg mg 09-29 [facility] 00:00: - [facility] Bupivicaine Bupivicaine 2019-0 No 2.5mg [facility] [place] 09-29 [facility] 00:00: - [facility] Hyalgan 20 Hyalgan 20 2019-0 No 20mg C ommon mg mg 09-29 [facility] 00:00: - [facility] Bupivicaine Bupivicaine 2019-0 No 2.5mg [facility] [place] 09-29 [facility] 00:00: - [facility] Hyalgan 20 Hyalgan 20 2019-0 No 20mg C ommon mg mg 09-29 [facility] 00:00: - [facility] Bupivicaine Bupivicaine 2019-0 No 2.5mg [facility] [place] 09-29 [facility] 00:00: - [facility] Hyalgan 20 Hyalgan 20 2019-0 No 20mg C ommon mg mg 09-29 [facility] 00:00: - [facility] Hyalgan 20 Hyalgan 20 2019-0 No 20mg C ommon mg mg 09-29 [facility] 00:00: - [facility] Bupivicaine Bupivicaine 2019-0 No 2.5mg [facility] [place] 09-29 [facility] 00:00: - [facility] Depo Medrol Depo Medrol 2017-09 No 40mg [facility] (40mg) (40mg) 10-28 [facility] 00:00: - [facility] Bupivicaine Bupivicaine 2017-1 No 2.5mg [facility] [place] 2 [facility] 00:00: - [facility] Depo Medrol Depo Medrol 2017-09 No 40mg [facility] (40mg) (40mg) 10-28 [facility] 00:00: - [facility] Bupivicaine Bupivicaine 2017-1 No 2.5mg [facility] [place] 2 [facility] 00:00: - [facility] Depo Medrol Depo Medrol 2017-09 No 40mg [facility] (40mg) (40mg) 10-28 [facility] 00:00: - [facility] Bupivicaine Bupivicaine 2017-1 No 2.5mg [facility] [place] 2 [facility] 00:00: - [facility] Depo Medrol Depo Medrol 2017-09 No 40mg [facility] (40mg) (40mg) 2 Spirit 00:00: - [facility] Bupivicaine Bupivicaine 2017- No 2.5mg [facility] [place] 2 [facility] 00:00: - [facility] Depo Medrol Depo Medrol 2017-09 No 40mg [facility] (40mg) (40mg) 2 Spirit 00:00: - [facility] Bupivicaine Bupivicaine 2017-09 No 2.5mg [facility] [place] 2 [facility] 00:00: - [facility] Depo Medrol Depo Medrol 2017-09 No 40mg [facility] (40mg) (40mg) 2 Spirit 00:00: - [facility] Bupivicaine Bupivicaine 2017-09 No 2.5mg Common [place] [facility] 00:00: - [facility] Depo Medrol Depo Medrol 2017-09 No 40mg Common (40mg) (40mg) 2 [facility] 00:00: - [facility] Bupivicaine Bupivicaine 2017-09 No 2.5mg [facility] [place] [facility] 00:00: - [facility] Depo Medrol Depo Medrol 2017-09 No 40mg Common (40mg) (40mg) 2 [facility] 00:00: - [facility] Bupivicaine Bupivicaine 2017- No 2.5mg [facility] [place] [facility] 00:00: - [facility] Depo Medrol Depo Medrol 2017-09 No 40mg Common (40mg) (40mg) 2 [facility] 00:00: - [facility] Bupivicaine Bupivicaine 2017- No 2.5mg [facility] [place] [facility] 00:00: - [facility] Depo Medrol Depo Medrol 2017-09 No 40mg Common (40mg) (40mg) 2 [facility] 00:00: - [facility] Bupivicaine Bupivicaine 2017- No 2.5mg [facility] [place] [facility] 00:00: - [facility] Depo Medrol Depo Medrol 2017-09 No 40mg Common (40mg) (40mg) 2 [facility] 00:00: - [facility] Bupivicaine Bupivicaine 2017-09 No 2.5mg [facility] [place] [facility] 00:00: - [facility] Depo Medrol Depo Medrol 2017-09 No 40mg Common (40mg) (40mg) [facility] 00:00: - [facility] Bupivicaine Bupivicaine 2017-09 No 2.5mg [facility] [place] [facility] 00:00: - [facility] Depo Medrol Depo Medrol 2017-09 No 40mg Common (40mg) (40mg) 2 [facility] 00:00: - [facility] Bupivicaine Bupivicaine 2017-09 No 2.5mg [facility] [place] [facility] 00:00: - [facility] Depo Medrol Depo Medrol 2017-09 No 40mg Common (40mg) (40mg) 10-28 [facility] 00:00: - [facility] Bupivicaine Bupivicaine 2017-09 No 2.5mg [facility] [place] [facility] 00:00: - [facility] Depo Medrol Depo Medrol 2017-09 No 40mg Common (40mg) (40mg) 10-28 [facility] 00:00: - [facility] Bupivicaine Bupivicaine 2017-09 No 2.5mg [facility] [place] [facility] 00:00: - [facility] Depo Medrol Depo Medrol 2017-09 No 40mg Common (40mg) (40mg) 2 [facility] 00:00: - [facility] Bupivicaine Bupivicaine 2017-09 No 2.5mg [facility] [place] [facility] 00:00: - [facility] Advil 200 Advil 200 No TID Advil 200 MG MG MG Aspir-81 Aspir-81 No Aspir-81 Apixaban Apixaban No Apixaban Lisinopril Lisinopril No Lisinopril Potassium Potassium No Potassium Chloride CR Chloride CR Chloride CR Allopurinol Allopurinol No Allopurino Sodium Sodium l Sodium Montelukast Montelukast No Montelukas Sodium Sodium t Sodium Zocor Zocor No Zocor Metoprolol Metoprolol No Metoprolol Succinate Succinate Succinate Tylenol 325 Tylenol 325 No 1{table 6xD Tylenol MG MG t_as_ne 325 MG eded} Lasix Lasix No Lasix Furosemide Furosemide No Furosemide Metoprolol Metoprolol No Metoprolol Succinate Succinate Succinate Allopurinol Allopurinol No Allopurino Sodium Sodium l Sodium Potassium Potassium No Potassium Chloride CR Chloride CR Chloride CR Furosemide Furosemide No Furosemide Advil 200 Advil 200 No TID Advil 200 MG MG MG Tylenol 325 Tylenol 325 No 1{table 6xD Tylenol MG MG t_as_ne 325 MG eded} Apixaban Apixaban No Apixaban Lisinopril Lisinopril No Lisinopril Montelukast Montelukast No Montelukas Sodium Sodium t Sodium Lasix Lasix No Lasix Aspir-81 Aspir-81 No Aspir-81 Zocor Zocor No Zocor Apixaban Apixaban No Apixaban Aspir-81 Aspir-81 No Aspir-81 Metoprolol Metoprolol No Metoprolol Succinate Succinate Succinate Lisinopril Lisinopril No Lisinopril Lasix Lasix No Lasix Furosemide Furosemide No Furosemide Allopurinol Allopurinol No Allopurino Sodium Sodium l Sodium Tylenol 325 Tylenol 325 No 1{table 6xD Tylenol MG MG t_as_ne 325 MG eded} Montelukast Montelukast No Montelukas Sodium Sodium t Sodium Zocor Zocor No Zocor Potassium Potassium No Potassium Chloride CR Chloride CR Chloride CR methylPREDN methylPREDN No methylPRED ISolone 4 ISolone 4 NISolone 4 MG MG MG Advil 200 Advil 200 No TID Advil 200 MG MG MG Lisinopril Lisinopril No Lisinopril Montelukast Montelukast No Montelukas Sodium Sodium t Sodium Metoprolol Metoprolol No Metoprolol Succinate Succinate Succinate Aspir-81 Aspir-81 No Aspir-81 Zocor Zocor No Zocor Furosemide Furosemide No Furosemide Potassium Potassium No Potassium Chloride CR Chloride CR Chloride CR Advil 200 Advil 200 No TID Advil 200 MG MG MG methylPREDN methylPREDN No methylPRED ISolone 4 ISolone 4 NISolone 4 MG MG MG Apixaban Apixaban No Apixaban Allopurinol Allopurinol No Allopurino Sodium Sodium l Sodium Lasix Lasix No Lasix Tylenol 325 Tylenol 325 No 1{table 6xD Tylenol MG MG t_as_ne 325 MG eded} Lisinopril Lisinopril No Lisinopril Montelukast Montelukast No Montelukas Sodium Sodium t Sodium Metoprolol Metoprolol No Metoprolol Succinate Succinate Succinate Aspir-81 Aspir-81 No Aspir-81 Zocor Zocor No Zocor Furosemide Furosemide No Furosemide Potassium Potassium No Potassium Chloride CR Chloride CR Chloride CR Advil 200 Advil 200 No TID Advil 200 MG MG MG methylPREDN methylPREDN No methylPRED ISolone 4 ISolone 4 NISolone 4 MG MG MG Apixaban Apixaban No Apixaban Allopurinol Allopurinol No Allopurino Sodium Sodium l Sodium Lasix Lasix No Lasix Tylenol 325 Tylenol 325 No 1{table 6xD Tylenol MG MG t_as_ne 325 MG eded} Lisinopril Lisinopril No Lisinopril Montelukast Montelukast No Montelukas Sodium Sodium t Sodium Metoprolol Metoprolol No Metoprolol Succinate Succinate Succinate Aspir-81 Aspir-81 No Aspir-81 Zocor Zocor No Zocor Furosemide Furosemide No Furosemide Potassium Potassium No Potassium Chloride CR Chloride CR Chloride CR Advil 200 Advil 200 No TID Advil 200 MG MG MG methylPREDN methylPREDN No methylPRED ISolone 4 ISolone 4 NISolone 4 MG MG MG Apixaban Apixaban No Apixaban Allopurinol Allopurinol No Allopurino Sodium Sodium l Sodium Lasix Lasix No Lasix Tylenol 325 Tylenol 325 No 1{table 6xD Tylenol MG MG t_as_ne 325 MG eded} Montelukast Montelukast No Montelukas Sodium Sodium t Sodium methylPREDN methylPREDN No methylPRED ISolone 4 ISolone 4 NISolone 4 MG MG MG Apixaban Apixaban No Apixaban Metoprolol Metoprolol No Metoprolol Succinate Succinate Succinate Potassium Potassium No Potassium Chloride CR Chloride CR Chloride CR Zocor Zocor No Zocor Advil 200 Advil 200 No TID Advil 200 MG MG MG Allopurinol Allopurinol No Allopurino Sodium Sodium l Sodium Lasix Lasix No Lasix Furosemide Furosemide No Furosemide Lisinopril Lisinopril No Lisinopril Tylenol 325 Tylenol 325 No 1{table 6xD Tylenol MG MG t_as_ne 325 MG eded} - Aspir- No - Montelukast Montelukast No Montelukas Sodium Sodium t Sodium methylPREDN methylPREDN No methylPRED ISolone 4 ISolone 4 NISolone 4 MG MG MG Apixaban Apixaban No Apixaban Metoprolol Metoprolol No Metoprolol Succinate Succinate Succinate Potassium Potassium No Potassium Chloride CR Chloride CR Chloride CR Zocor Zocor No Zocor Advil 200 Advil 200 No TID Advil 200 MG MG MG Allopurinol Allopurinol No Allopurino Sodium Sodium l Sodium Lasix Lasix No Lasix Furosemide Furosemide No Furosemide Lisinopril Lisinopril No Lisinopril Tylenol 325 Tylenol 325 No 1{table 6xD Tylenol MG MG t_as_ne 325 MG eded} -- No - Montelukast Montelukast No Montelukas Sodium Sodium t Sodium methylPREDN methylPREDN No methylPRED ISolone 4 ISolone 4 NISolone 4 MG MG MG Apixaban Apixaban No Apixaban Metoprolol Metoprolol No Metoprolol Succinate Succinate Succinate Potassium Potassium No Potassium Chloride CR Chloride CR Chloride CR Zocor Zocor No Zocor Advil 200 Advil 200 No TID Advil 200 MG MG MG Allopurinol Allopurinol No Allopurino Sodium Sodium l Sodium Lasix Lasix No Lasix Furosemide Furosemide No Furosemide Lisinopril Lisinopril No Lisinopril Tylenol 325 Tylenol 325 No 1{table 6xD Tylenol MG MG t_as_ne 325 MG eded} - Aspir- No - Montelukast Montelukast No Montelukas Sodium Sodium t Sodium methylPREDN methylPREDN No methylPRED ISolone 4 ISolone 4 NISolone 4 MG MG MG Apixaban Apixaban No Apixaban Metoprolol Metoprolol No Metoprolol Succinate Succinate Succinate Potassium Potassium No Potassium Chloride CR Chloride CR Chloride CR Zocor Zocor No Zocor Advil 200 Advil 200 No TID Advil 200 MG MG MG Allopurinol Allopurinol No Allopurino Sodium Sodium l Sodium Lasix Lasix No Lasix Furosemide Furosemide No Furosemide Lisinopril Lisinopril No Lisinopril Tylenol 325 Tylenol 325 No 1{table 6xD Tylenol MG MG t_as_ne 325 MG eded} Aspir-81 Aspir-81 No Aspir-81 Zocor 40 MG Zocor 40 MG No 1{table QD Zocor 40 t_in_th MG e_eveni ng} Metoprolol Metoprolol No 1{capsu QD Metoprolol Succinate Succinate le} Succinate 100 MG 100 MG 100 MG Tylenol 325 Tylenol 325 No 1{table 6xD Tylenol MG MG t_as_ne 325 MG eded} Lisinopril Lisinopril No 1{table QD Lisinopril 20 MG 20 MG t} 20 MG Potassium Potassium No Potassium Chloride CR Chloride CR Chloride CR Montelukast Montelukast No Montelukas Sodium Sodium t Sodium Furosemide Furosemide No Furosemide Empaglifloz Empaglifloz No Empagliflo in in zin Advil 200 Advil 200 No TID Advil 200 MG MG MG Aspir-81 Aspir-81 No Aspir-81 methylPREDN methylPREDN No methylPRED ISolone 4 ISolone 4 NISolone 4 MG MG MG Allopurinol Allopurinol No Allopurino Sodium Sodium l Sodium Apixaban 5 Apixaban 5 No BID Apixaban 5 MG MG MG Lasix 40 MG Lasix 40 MG No 1{table QD Lasix 40 t} MG Lisinopril Lisinopril No Lisinopril Montelukast Montelukast No Montelukas Sodium Sodium t Sodium Allopurinol Allopurinol No Allopurino Sodium Sodium l Sodium Montelukast Montelukast No Montelukas Sodium Sodium t Sodium Advil 200 Advil 200 No TID Advil 200 MG MG MG methylPREDN methylPREDN No methylPRED ISolone 4 ISolone 4 NISolone 4 MG MG MG Lisinopril Lisinopril No 1{table QD Lisinopril 20 MG 20 MG t} 20 MG Metoprolol Metoprolol No Metoprolol Succinate Succinate Succinate Apixaban 5 Apixaban 5 No BID Apixaban 5 MG MG MG Aspir-81 Aspir-81 No Aspir-81 Tylenol 325 Tylenol 325 No 1{table 6xD Tylenol MG MG t_as_ne 325 MG eded} Metoprolol Metoprolol No 1{capsu QD Metoprolol Succinate Succinate le} Succinate 100 MG 100 MG 100 MG Zocor 40 MG Zocor 40 MG No 1{table QD Zocor 40 t_in_th MG e_eveni ng} Empaglifloz Empaglifloz No Empagliflo in in zin Furosemide Furosemide No Furosemide Lasix 40 MG Lasix 40 MG No 1{table QD Lasix 40 t} MG Potassium Potassium No Potassium Chloride CR Chloride CR Chloride CR Aspir-81 Aspir-81 No Aspir-81 Zocor Zocor No Zocor Furosemide Furosemide No Furosemide Metoprolol Metoprolol No 1{capsu Metoprolol Succinate Succinate le} Succinate 25 MG 25 MG 25 MG Furosemide Furosemide No Furosemide methylPREDN methylPREDN No methylPRED ISolone 4 ISolone 4 NISolone 4 MG MG MG Potassium Potassium No Potassium Chloride CR Chloride CR Chloride CR Lisinopril Lisinopril No 1{table QD Lisinopril 20 MG 20 MG t} 20 MG Empaglifloz Empaglifloz No Empagliflo in in zin Aspir-81 Aspir-81 No Aspir-81 Advil 200 Advil 200 No TID Advil 200 MG MG MG Zocor 40 MG Zocor 40 MG No 1{table QD Zocor 40 t_in_th MG e_eveni ng} Potassium Potassium No Potassium Chloride CR Chloride CR Chloride CR Montelukast Montelukast No Montelukas Sodium Sodium t Sodium Lasix 40 MG Lasix 40 MG No 1{table QD Lasix 40 t} MG Tylenol 325 Tylenol 325 No 1{table 6xD Tylenol MG MG t_as_ne 325 MG eded} Advil 200 Advil 200 No TID Advil 200 MG MG MG Allopurinol Allopurinol No Allopurino Sodium Sodium l Sodium Apixaban 5 Apixaban 5 No BID Apixaban 5 MG MG MG methylPREDN methylPREDN No methylPRED ISolone 4 ISolone 4 NISolone 4 MG MG MG Apixaban Apixaban No Apixaban Lasix 40 MG Lasix 40 MG No 1{table QD Lasix 40 t} MG Zocor 40 MG Zocor 40 MG No 1{table QD Zocor 40 t_in_th MG e_eveni ng} Allopurinol Allopurinol No Allopurino Sodium Sodium l Sodium Metoprolol Metoprolol No 1{capsu Metoprolol Succinate Succinate le} Succinate 25 MG 25 MG 25 MG Allopurinol Allopurinol No Allopurino Sodium Sodium l Sodium Lisinopril Lisinopril No 1{table QD Lisinopril 20 MG 20 MG t} 20 MG Aspir-81 Aspir-81 No Aspir-81 Potassium Potassium No Potassium Chloride CR Chloride CR Chloride CR Montelukast Montelukast No Montelukas Sodium Sodium t Sodium methylPREDN methylPREDN No methylPRED ISolone 4 ISolone 4 NISolone 4 MG MG MG Tylenol 325 Tylenol 325 No 1{table 6xD Tylenol MG MG t_as_ne 325 MG eded} Furosemide Furosemide No Furosemide Empaglifloz Empaglifloz No Empagliflo in in zin Lasix Lasix No Lasix Apixaban 5 Apixaban 5 No BID Apixaban 5 MG MG MG Advil 200 Advil 200 No TID Advil 200 MG MG MG Tylenol 325 Tylenol 325 No 1{table 6xD Tylenol MG MG t_as_ne 325 MG eded} Advil 200 Advil 200 No TID Advil 200 MG MG MG Aspir-81 Aspir-81 No Aspir-81 Apixaban Apixaban No Apixaban Lisinopril Lisinopril No Lisinopril Potassium Potassium No Potassium Chloride CR Chloride CR Chloride CR Allopurinol Allopurinol No Allopurino Sodium Sodium l Sodium Montelukast Montelukast No Montelukas Sodium Sodium t Sodium Zocor Zocor No Zocor Metoprolol Metoprolol No Metoprolol Succinate Succinate Succinate Tylenol 325 Tylenol 325 No 1{table 6xD Tylenol MG MG t_as_ne 325 MG eded} Lasix Lasix No Lasix Furosemide Furosemide No Furosemide Vital Signs Vital Name Observation Time Observation Value Comments Source HEIGHT 2020-10-06 05:48:00 167.6 cm WEIGHT 2020-10-06 05:48:00 97.024 kg height 2022-10-22 08:15:00 66.5 [in_i] [facility] weight 2022-10-22 08:15:00 192 [lb_av] [facility] temperature 2022-10-22 08:15:00 97.8 [degF] [facility] bmi 2022-10-22 08:15:00 30.52 kg/m2 [facility] blood pressure 2022-10-22 08:15:00 122 mm[Hg] [facility] - systolic [facility] blood pressure 2022-10-22 08:15:00 78 mm[Hg] [facility] - diastolic [facility] height 2022-10-16 13:15:00 66.5 [in_i] [facility] weight 2022-10-16 13:15:00 192.1 [lb_av] [facility] temperature 2022-10-16 13:15:00 97.9 [degF] [facility] bmi 2022-10-16 13:15:00 30.54 kg/m2 [facility] blood pressure 2022-10-16 13:15:00 114 mm[Hg] [facility] - systolic [facility] blood pressure 2022-10-16 13:15:00 68 mm[Hg] [facility] - diastolic [facility] temperature 2022-07-31 08:15:00 97.2 [degF] [facility] bmi 2022-07-31 08:15:00 30.33 kg/m2 [facility] blood pressure 2022-07-31 08:15:00 128 mm[Hg] [facility] - systolic [facility] blood pressure 2022-07-31 08:15:00 82 mm[Hg] [facility] - diastolic [facility] height 2022-07-31 08:15:00 66.5 [in_i] [facility] weight 2022-07-31 08:15:00 190.8 [lb_av] [facility] height 2022-06-11 14:45:00 66.5 [in_i] [facility] weight 2022-06-11 14:45:00 188 [lb_av] [facility] temperature 2022-06-11 14:45:00 97.3 [degF] [facility] bmi 2022-06-11 14:45:00 29.89 kg/m2 [facility] blood pressure 2022-06-11 14:45:00 134 mm[Hg] [facility] - systolic [facility] blood pressure 2022-06-11 14:45:00 70 mm[Hg] [facility] - diastolic [facility] height 2022-05-07 10:00:00 66.5 [in_i] [facility] weight 2022-05-07 10:00:00 188 [lb_av] [facility] temperature 2022-05-07 10:00:00 97.1 [degF] [facility] bmi 2022-05-07 10:00:00 29.89 kg/m2 [facility] blood pressure 2022-05-07 10:00:00 130 mm[Hg] [facility] - systolic [facility] blood pressure 2022-05-07 10:00:00 84 mm[Hg] [facility] - diastolic [facility] height 2022-03-06 14:00:00 66.5 [in_i] [facility] weight 2022-03-06 14:00:00 191 [lb_av] [facility] bmi 2022-03-06 14:00:00 30.36 kg/m2 [facility] blood pressure 2022-03-06 14:00:00 126 mm[Hg] [facility] - systolic [facility] blood pressure 2022-03-06 14:00:00 76 mm[Hg] [facility] - diastolic [facility] WEIGHT 2021-07-11 04:00:00 88.4 kg WEIGHT 2021-07-10 05:32:00 90.9 kg WEIGHT 2021-07-09 04:00:00 92.5 kg HEIGHT 2021-07-06 17:53:00 167.6 cm WEIGHT 2021-07-06 17:53:00 96.2 kg WEIGHT 2021-07-11 04:00:00 88.4 kg WEIGHT 2021-07-10 05:32:00 90.9 kg WEIGHT 2021-07-09 04:00:00 92.5 kg HEIGHT 2021-07-06 17:53:00 167.6 cm WEIGHT 2021-07-06 17:53:00 96.2 kg Systolic blood 2020-12-29 15:09:00 131 mm[Hg] [facility] pressure [facility] Diastolic blood 2020-12-29 15:09:00 67 mm[Hg] [facility] Heart rate 2020-12-29 15:09:00 78 /min [facility] Respiratory rate 2020-12-29 15:09:00 10 /min [facility] Oxygen saturation in 2020-12-29 15:09:00 95 /min [facility] Arterial blood by [facility] Pulse oximetry [place] Body temperature 2020-12-29 14:22:00 36.11 Vy [facility] Body height 2020-12-26 18:30:00 167.6 cm [facility] Body weight 2020-12-26 18:30:00 97.977 kg [facility] BMI 2020-12-26 18:30:00 34.86 kg/m2 [facility] Systolic blood 2020-12-29 15:09:00 131 mm[Hg] [facility] Diastolic blood 2020-12-29 15:09:00 67 mm[Hg] [facility] Heart rate 2020-12-29 15:09:00 78 /min [facility] Respiratory rate 2020-12-29 15:09:00 10 /min [facility] Oxygen saturation in 2020-12-29 15:09:00 95 /min [facility] Arterial blood by [facility] Pulse oximetry Branch Body temperature 2020-12-29 14:22:00 36.11 Vy [facility] Body height 2020-12-26 18:30:00 167.6 cm [facility] Body weight 2020-12-26 18:30:00 97.977 kg [facility] BMI 2020-12-26 18:30:00 34.86 kg/m2 [facility] HEIGHT 2020-12-17 13:01:00 167.6 cm WEIGHT 2020-12-17 [...] Date / Time Performing Source Performed Clinician MRI HIP WO CONTRAST RT 2022-09-28 Henry Dodd [facility] 18:44:08 X RAYS NO CHARGE MRI 2022-09-28 Carlo Corona [facility] 17:28:00 [id number] 2021-08-28 BURDA. [facility] [id number] 2021-08-28 BURDA.06 [facility] 00:00:00 [facility] [id number] 2021-08-28 BURDA.06 [facility] 00:00:00 [facility] [id number] 2021-08-28 BURDA.06 [facility] 00:00:00 [facility] ANOSCOPY 2020-12-29 Caio [facility] 13:20:00 [facility] HEMORRHOIDECTOMY 2020-12-29 Caio [facility] 13:20:00 [facility] EXAM UNDER ANESTHESIA 2020-12-29 Caio [facility] 13:20:00 Medical [facility] PROCTOSIGMOIDOSCOPY 2020-12-29 Caio [facility] 13:20:00 Medical Branch PATIENT QUESTIONNAIRE 2020-12-29 Doctor Ethan, [facility] 05:01:00 [facility] XR CHEST 2 VW 2020-12-28 Caio [facility] 15:39:19 [facility] NOTICE OF BILLING PRACTICES 2020-12-28 Doctor Ethan, [facility] FOR MEDICARE PATIENTS 14:56:44 [place] [facility] PATIENT FINANCIAL POLICY 2020-12-28 Doctor Ethan [facility] 14:56:17 [facility] NO SHOW OR MISSED APPOINTMENT 2020-12-28 Doctor Ethan [facility] POLICY ACKNOWLEDGEMENT 14:56:01 [place] ranch NOTICE OF PRIVACY PRACTICES 2020-12-28 Doctor Ethan, [facility] 14:55:46 [facility] CONSENT/REFUSAL FOR DIAGNOSIS 2020-12-28 Doctor Ethan [facility] AND TREATMENT 14:55:13 [facility] CONSENT/REFUSAL FOR DIAGNOSIS 2020-12-28 Doctor Ethan, [facility] AND TREATMENT 14:55:13 [facility] ASSIGNMENT OF BENEFITS 2020-12-28 Doctor [facility] 14:54:52 [facility] ASSIGNMENT OF BENEFITS 2020-12-28 Doctor [facility] 14:54:52 [facility] ASSIGNMENT OF BENEFITS 2020-12-28 Doctor [facility] 14:54:35 [facility] ASSIGNMENT OF BENEFITS 2020-12-28 Doctor [facility] 14:54:35 [facility] DSU PRE-OP 2020-12-23 Doctor Long [facility] 05:01:00 [facility] DSU PRE-OP 2020-12-23 Doctor Long [facility] 05:01:00 [facility] Plan of Care Planned Activity Planned Date Details Comments Source Future Scheduled 2023-07-19 COVID[facility]19 [facility] 21:26:18 [code = COVID-19 VACCINE (#1)] Future Scheduled 2023-07-19 [facility] 21:26:18 (procedure) [code = 950442658] Future Scheduled 2023-07-19 SHINGLES VACCINES (1 [facility] Test 21:26:18 of 2) [code = SHINGLES VACCINES (1 of 2)] Future Scheduled 2023-07-19 65[facility]CCAL [facility] 21:26:18 VACCINE (1 - PCV) [code = 65+ PNEUMOCOCCAL VACCINE (1 - PCV)] Future Scheduled 2023-07-19 [facility] 21:26:18 [code = INFLUENZA VACCINE (#1)] Future Scheduled 2023-07-19 COVID-19 VACCINE (#1) [facility] Test 21:26:18 [code = COVID-19 VACCINE (#1)] Future Scheduled 2023-07-19 Hepatitis C screening [facility] Test 21:26:18 (procedure) [code = [id number]] Future Scheduled 2023-07-19 SHINGLES VACCINES (1 [facility] Test 21:26:18 of 2) [code = SHINGLES VACCINES (1 of 2)] Future Scheduled 2023-07-19 65[facility] 21:26:18 VACCINE (1 - PCV) [code = 65+ PNEUMOCOCCAL VACCINE (1 - PCV)] Future Scheduled 2023-07-19 INFLUENZA VACCINE (#1) [facility] Test 21:26:18 [code = INFLUENZA VACCINE (#1)] Future Scheduled 2023-05-24 Influenza Vaccine (#1) [facility] Test 00:00:00 [code = Influenza Medical Ce nter Vaccine (#1)] Future Scheduled 2023-05-[address] [facility] Test 00:00:00 (Season Ended) [code = Medic al Center INFLUENZA VACCINE (Season Ended)] Future Scheduled 2023-05-24 Influenza Vaccine (#1) [facility] Test 00:00:00 [code = Influenza Medical Ce nter Vaccine (#1)] Future Scheduled 2022-12-27 COVID[facility] (#[facility] 05:42:07 [code = COVID-19 VACCINE (#1)] Future Scheduled 2022-12-27 [facility] 05:42:07 (procedure) [code = [id number]] Future Scheduled 2022-12-27 [facility] 05:42:07 of 2) [code = SHINGLES VACCINES (1 of 2)] Future Scheduled 2022-12-27 65[facility] Test 05:42:07 VACCINE (1 - PCV) [code = 65+ PNEUMOCOCCAL VACCINE (1 - PCV)] Future Scheduled 2022-12-27 INFLUENZA VACCINE [facility] Test 05:42:07 [code = INFLUENZA VACCINE] Future Scheduled 2022-10-04 COVID-19 [facility]ACCINE (#[facility]) [facility] 17:20:32 [code = COVID-19 VACCINE (#1)] Future Scheduled 2022-10-04 [facility] 17:20:32 (procedure) [code = [id number]] Future Scheduled 2022-10-04 SHINGLES VACCINES (1 [facility] Test 17:20:32 of 2) [code = SHINGLES VACCINES (1 of 2)] Future Scheduled 2022-10-04 65+ [facility]CCAL [facility] 17:20:32 VACCINE (1 - PCV) [code = 65+ PNEUMOCOCCAL VACCINE (1 - PCV)] Future Scheduled 2022-10-04 INFLUENZA VACCINE [facility] Test 17:20:32 [code = INFLUENZA VACCINE] Future Scheduled 2022-10-04 COVID-19 [facility]ACCINE (#[facility]) [facility] 17:20:32 [code = COVID-19 VACCINE (#1)] Future Scheduled 2022-10-04 [facility] 17:20:32 (procedure) [code = [id number]] Future Scheduled 2022-10-04 [facility]ING[facility]IN[facility] 17:20:32 of 2) [code = SHINGLES VACCINES (1 of 2)] Future Scheduled 2022-10-04 65+ [facility]UMOCOCCAL [facility] Test 17:20:32 VACCINE (1 - PCV) [code = 65+ PNEUMOCOCCAL VACCINE (1 - PCV)] Future Scheduled 2022-10-04 INFLUENZA VACCINE [facility] Test 17:20:32 [code = INFLUENZA VACCINE] Future Scheduled 2022-09-[address] [facility] Test 00:00:00 (12+) [code = Medical Center DEPRESSION SCREENING (12+)] Future Scheduled 2022-09-23 FALLS RISK SCREENING [facility] Test 00:00:00 [code = FALLS RISK Medical C enter SCREENING] Future Scheduled 2022-09-[address] [facility] Test 00:00:00 (12+) [code = Medical Center DEPRESSION SCREENING (12+)] Future Scheduled 2022-09-23 F[place]S RISK SCREENING [facility] Test 00:00:00 [code = FALLS RISK Medical C enter SCREENING] Future Scheduled 2022-09-[address] [facility] Test 00:00:00 (12+) [code = Medical Center DEPRESSION SCREENING (12+)] Future Scheduled 2022-09-23 [address]ISK SCREENING [facility] Test 00:00:00 [code = FALLS RISK Medical C enter SCREENING] Future Scheduled 2022-09-[address] [facility] Test 00:00:00 (12+) [code = Medical Center DEPRESSION SCREENING (12+)] Future Scheduled 2022-09-23 FALLS RISK SCREENING [facility] Test 00:00:00 [code = FALLS RISK Medical C enter SCREENING] Future Scheduled 2022-09-[address] [facility] Test 00:00:00 (12+) [code = Medical Center DEPRESSION SCREENING (12+)] Future Scheduled 2022-09-23 [address]ENING [facility] Test 00:00:00 [code = FALLS RISK Medical C enter SCREENING] Future Scheduled 2022-05-24 INFLUENZA VACCINE (#1[facility]00 [code = INFLUENZA Medical Ce nter VACCINE (#1)] Future Scheduled 2022-05-24 INFLUENZA VACCINE (#1) [facility] 00:00:00 [code = INFLUENZA Medical Ce nter VACCINE (#1)] Future Scheduled 2021-12-[address] [facility] Test 00:00:00 Counseling and Medical Cente r Screening (12+) [code = Tobacco Cessation Counseling and Screening (12+)] Future Scheduled 2021-12-[address] [facility] Test 00:00:00 Counseling and Medical Cente r Screening (12+) [code = Tobacco Cessation Counseling and Screening (12+)] Future Scheduled 2021-12-[address] [facility] Test 00:00:00 Counseling and Medical Cente r Screening (12+) [code = Tobacco Cessation Counseling and Screening (12+)] Future Scheduled 2021-12-[address] [facility] Test 00:00:00 Counseling and Medical Cente r Screening (12+) [code = Tobacco Cessation Counseling and Screening (12+)] Future Scheduled 2021-12-[address] [facility] Test 00:00:00 Counseling and Medical Cente r Screening (12+) [code = Tobacco Cessation Counseling and Screening (12+)] Future Scheduled 2021-09-[address] [facility] 00:00:00 WELLNESS (YEAR 2 or Medical Center FIRST YEAR if no IPPE) [code = MEDICARE ANNUAL WELLNESS (YEAR 2 or FIRST YEAR if no IPPE)] Future Scheduled 2021-09-[address] [facility] 00:00:00 WELLNESS (YEAR 2 or Medical Center FIRST YEAR if no IPPE) [code = MEDICARE ANNUAL WELLNESS (YEAR 2 or FIRST YEAR if no IPPE)] Future Scheduled 2021-09-[address] [facility] 00:00:00 WELLNESS (YEAR 2 or Medical Center FIRST YEAR if no IPPE) [code = MEDICARE ANNUAL WELLNESS (YEAR 2 or FIRST YEAR if no IPPE)] Future Scheduled 2021-09-[address] [facility] 00:00:00 WELLNESS (YEAR 2 or Medical Center FIRST YEAR if no IPPE) [code = MEDICARE ANNUAL WELLNESS (YEAR 2 or FIRST YEAR if no IPPE)] Future Scheduled 2021-09-[address] [facility] 00:00:00 WELLNESS (YEAR 2 or Medical Center FIRST YEAR if no IPPE) [code = MEDICARE ANNUAL WELLNESS (YEAR 2 or FIRST YEAR if no IPPE)] Future Scheduled 2010 PNEUMOCOCCAL 65+ YRS [facility] Test 00:00:00 (1 - PCV) [code = Medical Ce nter PNEUMOCOCCAL 65+ YRS (1 - PCV)] Future Scheduled 2010 PNEUMOCOCCAL 65+ YRS [facility] Test 00:00:00 (1 - PCV) [code = Medical Ce nter PNEUMOCOCCAL 65+ YRS (1 - PCV)] Future Scheduled 2010 PNEUMOCOCCAL 65+ YRS [facility] Test 00:00:00 (1 - PCV) [code = Medical Ce nter PNEUMOCOCCAL 65+ YRS (1 - PCV)] Future Scheduled 2010 PNEUMOCOCCAL 65+ YRS [facility] Test 00:00:00 (1 - PCV) [code = Medical Ce nter PNEUMOCOCCAL 65+ YRS (1 - PCV)] Future Scheduled 2010 PNEUMOCOCCAL 65+ YRS [facility] Test 00:00:00 (1 - PCV) [code = Medical Ce nter PNEUMOCOCCAL 65+ YRS (1 - PCV)] Future Scheduled 1995 SHINGLES VACCINES ([address] [facility] Test 00:00:00 of 2) [code = SHINGLES Medic al Center VACCINES (1 of 2)] Future Scheduled 1995 SHINGLES VACCINES ([address] [facility] Test 00:00:00 of 2) [code = SHINGLES Medic al Center VACCINES (1 of 2)] Future Scheduled 1995 SHINGLES VACCINES ([address] [facility] Test 00:00:00 of 2) [code = SHINGLES Medic al Center VACCINES (1 of 2)] Future Scheduled 1995 SHINGLES VACCINES ([address] [facility] Test 00:00:00 of 2) [code = SHINGLES Medic al Center VACCINES (1 of 2)] Future Scheduled 1995 SHINGLES VACCINES ([address] [facility] Test 00:00:00 of 2) [code = SHINGLES Medic al Center VACCINES (1 of 2)] Future Scheduled 1964 DTAP/TDAP/TD [facility]ACCINES [facility] 00:00:00 (1 - Tdap) [code = Medical C enter DTAP/TDAP/TD VACCINES (1 - Tdap)] Future Scheduled 1964 DTAP/TDAP/TD [facility]ACCINES [facility] 00:00:00 (1 - Tdap) [code = Medical C enter DTAP/TDAP/TD VACCINES (1 - Tdap)] Future Scheduled 1964 DTAP/TDAP/TD [facility]ACCINES [facility] 00:00:00 (1 - Tdap) [code = Medical C enter DTAP/TDAP/TD VACCINES (1 - Tdap)] Future Scheduled 1964 DTAP/TDAP/TD [facility]ACCINES [facility] 00:00:00 (1 - Tdap) [code = Medical C enter DTAP/TDAP/TD VACCINES (1 - Tdap)] Future Scheduled 1964 DTAP/TDAP/TD [facility]ACCINES [facility] 00:00:00 (1 - Tdap) [code = Medical C enter DTAP/TDAP/TD VACCINES (1 - Tdap)] Future Scheduled 1963 HEPATITIS C [facility]CRE[facility]ING [facility] 00:00:00 [code = HEPATITIS C Medical Center SCREENING] Future Scheduled 1963 HEPATITIS C [facility] 00:00:00 [code = HEPATITIS C Medical Center SCREENING] Future Scheduled 1963 HEPATITIS C [facility] 00:00:00 [code = HEPATITIS C Medical Center SCREENING] Future Scheduled 1963 HEPATITIS C [facility] 00:00:00 [code = HEPATITIS C Medical Center SCREENING] Future Scheduled 1963 HE[facility]ITIS C [facility] 00:00:00 [code = HEPATITIS C Medical Center SCREENING] Future Scheduled 1945 COVID-19 VACCINE (#1) [facility] 00:00:00 [code = COVID-[address] VACCINE (#1)] Future Scheduled 1945 COVID-19 VACCINE (#1) [facility] 00:00:00 [code = COVID-[address] VACCINE (#1)] Future Scheduled 1945 COVID-19 VACCINE (#1[facility] 00:00:00 [code = COVID-[address] VACCINE (#1)] Future Scheduled 1945 COVID-19 VACCINE (#1[facility] 00:00:00 [code = COVID-[address] VACCINE (#1)] Future Scheduled 1945 COVID-19 VACCINE (#1[facility] 00:00:00 [code = COVID-[address] VACCINE (#1)] Encounters Start End Encounter Admission Attending Care Care Encounter Source Date/Time Date/Time Type Type Clinicians Facility Department ID 2022-11-29 Outpatient Zhao Shetty [facility] [id number] - Common 08:37:00 [id number] [facility] 2022-10-23 Outpatient Zhao Shetty [facility] [id number] - Common 09:01:01 [id number] [facility] 2022-10-16 [facility]patient [facility] [id number] - Common 13:09:01 [id number] [facility] 2022-05-07 [facility] [id number] Common 10:34:01 [facility] 2022-03-12 [facility] [id number] - Common 08:02:01 [facility] 2022-03-06 [facility] [id number] - Common 14:23:02 [facility] 2022-02-28 [facility] [id number] - Common 08:44:02 [facility] 2022-02-[address] [facility] [id number] - Common 13:03:02 [facility] 2021-10-18 [facility] [id number] - Common 12:47:14 [id number] [facility] 2021-10-[address] [facility] [id number] - Common 12:45:46 [id number] [facility] 2021-09-19 Inpatient GONZALEZ Adams [facility] DAYS [id number] [facility] 09:00:[address] [facility] 2021-07-23 Outpatient Bryant GOETZ DEVINNIE CHRISTY [id number] Univers 11:15:16 TATE george [facility] 2021-06-30 Outpatient XANDER BUCKNER Surgery [id number] SLE 21:55:24 2021-06-30 Outpatient XANDER GUARDADO Surgery [id number] SLE 20:14:09 2022-10-22 2022-10-22 OFFICE STLMLC STLMLC [id number] Co mmon 00:00:00 00:00:00 VISIT EST Spir it PT LEVEL 3 - [facility] 2022-10-22 2022-10-22 (TEL) STLMLC STLMLC [id number] Co mmon 00:00:00 00:00:00 [facility] 2022-10-16 2022-10-16 OFFICE STLMLC STLMLC [id number] Co mmon 00:00:00 00:00:00 VISIT Spirit ESTAB PT - CHI LEVEL 4 [facility] 2022-10-02 2022-10-02 (TEL) STLMLC STLMLC [id number] Co mmon 00:00:00 00:00:00 [facility] 2022-09-28 2022-09-28 [facility], 1.2.840.1 [id number] Methodi 11:16:11 23:59:00 Encounter Carlo 93288.1.[address] 3.430.2.7 Hospit a .3.259625 l .8 2022-09-28 2022-09-28 [facility] 1.2.840.1 [id number] Methodi 11:16:11 23:59:00 Encounter Carlo 28383.1.[address] 3.430.2.7 Hospit a .3.967643 l .8 2022-09-28 2022-09-28 [facility] 1.2.840.1 [id number] Methodi 10:30:00 11:15:00 Encounter Henry Tsang 89230.1.[address] 3.430.2.7 Hospit a .3.564951 l .8 2022-09-28 2022-09-28 [facility] 1.2.840.1 [id number] Methodi 10:30:00 11:15:00 Encounter Henry Tsang 76731.1.[address] 3.430.2.7 Hospit a .3.939019 l .8 2022-09-28 2022-09-28 Travel 1.2.840.1 1.2.831.327 [id number] Methodi 00:00:00 00:00:[address] 3.430.2.7 0.2.7.3.698 Ho spita .3.051701 084.8 l .8 2022-09-28 2022-09-28 Travel 1.2.840.1 1.2.936.133 [id number] Methodi 00:00:00 00:00:[address] 3.430.2.7 0.2.7.3.698 Ho spita .3.760691 084.8 l .8 2022-08-28 2022-08-28 Transcribe Dodd, 1.2.840.1 [id number] Methodi 00:00:00 00:00:00 Orders Henry E [address]77.1.[address] 3.430.2.7 Hospit a .3.431379 l .8 2022-08-28 2022-08-28 Transcribe Dodd, 1.2.840.1 [id number] Methodi 00:00:00 00:00:00 Orders Henry E [address]8764.1.[address] 3.430.2.7 Hospit a .3.495909 l .8 2022-08-01 2022-08-01 (TEL) STLMLC STLMLC [id number] Co mmon 00:00:00 00:00:00 [facility] 2022-07-31 2022-07-31 (TEL) STLMLC STLMLC [id number] Co mmon 00:00:00 00:00:00 [facility] - [facility] 2022-07-31 2022-07-31 OFFICE STLMLC STLMLC [id number] Co mmon 00:00:00 00:00:00 VISIT [facility] - CHI LEVEL 4 [facility] 2022-07-18 2022-07-18 (TEL) STLMLC STLMLC [id number] Co mmon 00:00:00 00:00:00 [facility] - [facility] 2022-07-16 2022-07-16 (TEL) STLMLC STLMLC [id number] Co mmon 00:00:00 00:00:00 [facility] 2022-06-18 2022-06-18 (TEL) STLMLC STLMLC [id number] Co mmon 00:00:00 00:00:00 [facility] 2022-06-11 2022-06-11 OFFICE STLMLC STLMLC [id number] Co mmon 00:00:00 00:00:00 VISIT Spirit ESTAB PT - CHI LEVEL 4 [facility] 2022-05-25 2022-05-25 (TEL) STLMLC STLMLC [id number] Co mmon 00:00:00 00:00:00 [facility] 2022-05-07 2022-05-07 OFFICE STLMLC STLMLC [id number] Co mmon 00:00:00 00:00:00 VISIT [facility] PT - CHI LEVEL 4 [facility] 2022-03-27 2022-03-27 (TEL) STLMLC STLMLC [id number] Co mmon 00:00:00 00:00:00 [facility] 2022-03-06 2022-03-06 OFFICE STLMLC STLMLC [id number] Co mmon 00:00:00 00:00:00 VISIT [facility] PT - CHI LEVEL 4 [facility] 2021-11-20 2021-11-20 Outpatient [facility] INTM.01 [id number] [facility] 07:25:00 18:47:00 Zhao 34 [facility] 2021-10-02 2021-10-02 Outpatient GONZALEZ FONTANEZ SLE SLEH [id number] SLEH 14:41:06 23:59:00 MIHIR DUNAWAY 2021-08-28 2021-08-28 Inpatient [facility] CAT [id number] [facility] 15:56:00 20:15:00 Zhao 69 [facility] 2021-08-14 2021-08-14 Outpatient [facility] DAYS [id number] [facility] 01:08:00 01:08:00 Zhao 02 [facility] 2021-07-06 2021-07-12 Inpatient ER LYNNE BAILEY Cardiac [id number] SLE 17:36:00 12:37:00 ISSAC Quinones 2021-05-02 2021-05-02 Outpatient GONZALEZ FONTANEZ [facility] [id number] SLE 15:24:03 23:59:00 MIHIR DUNAWAY 2021-02-08 2021-02-[address] [facility] [id number] SLE 00:00:00 00:00:00 MIHIR DUNAWAY 2021-02-08 2021-02-08 Outpatient GONZALEZ FONTANEZ [facility] [id number] SLE 00:00:00 00:00:00 MIHIR DUNAWAY 2021-01-24 2021-01-24 Outpatient STLMLC STLMLC [id number] Common 00:00:00 00:00:00 [facility] 2021-01-02 2021-01-02 Outpatient STLMLC STLMLC [id number] Common 00:00:00 00:00:00 [facility] 2020-12-29 2020-12-29 [facility] 1.2.840.114 [id number] Univers 07:04:00 10:48:00 Encounter Tate Grissom 350.1.13.10 [place] [id number] [facility] [address] Branch 2020-12-29 2020-12-29 Surgery [facility] 1.2.644.000 [id number] Univers 08:30:00 10:16:00 Tate Grissom 350.1.13.10 [place] [id number] [facility] 020 Branch 2020-12-29 2020-12-29 Orders Doctor TERRELL 1.2.840.114 [id number] Univers 00:00:00 00:00:00 Only Unassigned, MARIA TERESA 350.1.13.10 ity of [place] [facility] 4.2.7.2.686 Reji as [id number] [facility] 009 Branch 2020-12-28 2020-12-28 [facility] Caio [facility] 1.2.840.114 [id number] Univers 09:55:49 23:59:00 Encounter Tate Grissom 350.1.13.10 [place]y [place] 4.2.7.2.686 [facility] [id number] [facility] 807 Branch 2020-12-28 2020-12-28 Laboratory Only, Adc Test [facility] 1.2.840. 114 [id number] Univers 09:56:21 10:11:21 Only Tate Goetz 350.1.13.10 ity of [place] 4.2.7.2.686 [facility] [id number] [facility] 353 Branch 2020-12-28 2020-12-28 [employer] [place] Lab Main [facility] 1.2.8 40.114 [id number] Univers 09:56:07 10:11:07 Visit Tate Goetz 350.1.13.10 ity of [place] 4.2.7.2.686 [id number] [facility] [address] [facility] 2020-12-28 2020-12-28 Outpatient Bryant GOETZ [facility] [id number] Univers 00:00:00 00:00:00 TATE vazquez [facility] 2020-12-19 2020-12-19 [facility] [id number] Common 00:00:00 00:00:00 [facility] 2020-12-17 2020-12-17 Emergency ER [facility] Emergency [id number] SLEH 12:47:00 12:47:00 2020-12-15 2020-12-15 Outpatient GONZALEZ FONTANEZ [facility] [id number] SLEH 00:00:00 00:00:00 MIHIR DUNAWAY 2020-11-29 2020-11-29 Outpatient GONZALEZ FONTANEZ SLE SLE [id number] SLEH 00:00:00 00:00:00 MIHIR DUNAWAY 2020-10-03 2020-10-03 Outpatient [facility] [id number] SLEH 00:00:00 00:00:00 2020-09-12 2020-09-12 Outpatient [facility] [id number] [facility] 00:00:00 00:00:00 2020-07-19 2020-07-20 Outpatient nullFlavo MNA [id number] Memoria 13:15:00 04:59:59 r Neurology 04 madhavi Asencio 2020-07-19 2020-07-20 Outpatient nullFlavo MNA [id number] Memoria 13:15:00 04:59:59 r Neurology 04 l Ngoc Asencio 2020-07-20 2020-07-20 Ambulatory nullFlavo MNA [id number] Memoria 01:15:00 01:15:00 Pre-Reg r Neurology 03 l Ngoc Asencio 2020-07-20 2020-07-20 Ambulatory nullFlavo MNA [id number] Memoria 01:15:00 01:15:00 Pre-Reg r Neurology 03 l Ngoc Asencio 2020-07-19 2020-07-19 Outpatient SHANNON SheppardMISCHER MHMISCHER [id number] 08:15:00 23:59:59 Joe Kiki Burleson 2020-07-19 2020-07-19 Outpatient DEZ SheppardSCHER MHMISCHER [id number] 20:15:00 20:15:00 Joe 03 Benjy 2020-07-19 2020-07-19 Outpatient MHIE MHIE [id number] Memoria 08:15:00 08:15:00 04 madhavi Luis M 2018-09-02 2018-09-02 Outpatient GONZALEZ FONTANEZ [facility] [id number] SLE 00:00:00 00:00:00 MIHIR DUNAWAY Results Test Description Test Time Test Comments Results Result Comments Source GLUBED 2021-11-20 14:53:00 Test Item Value Reference Range Interpretation Comme nts GLUBED (test code = GLUBED) 89 MG/DL 70-105 N CBC W/AUTO [id number] 13:53:00 Test Item Value Reference Range Interpretation [...] 3/uL 0.0-0.20 N COVID 19 Asymptomatic IH [id number] 13:38:00 Test Item Value Reference Range Interpretation [...] beconsidered in the context of a pa josemanuel's recent exposure s,history and the presenc e of clinical signs and symptomsconsist ent with COVID-19. COMPREHENSIVE METABOLIC [id number] 13:36:00 Test Item Value Reference Range Interpretation [...] Reference Range Oct 2020 RAD, CHEST, 2 [id number] 16:15:00Reason for Exam:->Coronary atherosclerosisCHI [facility]QU[facility] : 1945 Sex: MFINAL REPORT Exam: RAD, CHEST, 2 VIEWSDate: 10/02/2021 4:14 PM Indication: Coronary artery disease Comparison: Chest radiograph 07/11/2021 FINDINGS: Lines/Tubes:Left chest pacemaker. Lungs:The lungs are hyperinflated. No focal consolidation [...] MDReport Verified Date/Time: 10/02/2021 16:15:45 COAGULATION TIME [id number] 13:44:00 Test Item Value Reference Range Interpretation Comments COAGULATION TIME ACTIVATED (test 323 SECONDS 74-137 H code = ACT) COAGULATION TIME [id number] 13:12:00 Test Item Value Reference Range Interpretation Comments COAGULATION TIME ACTIVATED (test 312 SECONDS 74-137 H code = ACT) COAGULATION TIME [id number] 12:47:00 Test Item Value Reference Range Interpretation Comments COAGULATION TIME ACTIVATED (test 329 SECONDS 74-137 H code = ACT) COAGULATION TIME [id number] 12:31:00 Test Item Value Reference Range Interpretation Comments COAGULATION TIME ACTIVATED (test 329 SECONDS 74-137 H code = ACT) COAGULATION TIME [id number] 12:17:00 Test Item Value Reference Range Interpretation Comments COAGULATION TIME ACTIVATED (test 279 SECONDS 74-137 H code = ACT) Novel Coronavirus 09:27:00 Test Item Value Reference Range Interpretation Comments Novel Coronavirus Negative Negative Positive r esults are 2019 Inhouse (test indicativ e of the presence code = [id number]) ofSARS-CoV -2 RNA, clinical correlation wit h [...] det ection of nucleic acids f rom [id number] v irus and diagnosis of SA RS-CoV-2 virusinfection. It is an Emergency Use Authorization ( EUA) testauthorized by the U.S. FDA. First test? UnknownEmployed in Healthcare? UnknownSymptomatic as defined by CDC? UnknownHospitalizeddue to COVID? UnknownIn ICU due to COVID? UnknownResident in a congregate care setting? Unknown? UnknownAge at collection: Y COMPREHENSIVE METABOLIC [id number] 13:37:00 Test Item Value Reference Range Interpretation [...] Feb code = ALKP) 2020 CBC W/AUTO [id number] 13:27:00 Test Item Value Reference Range Interpretation [...] 0.03 x10 3/uL 0.0-0.20 N COMPREHENSIVE METABOLIC [id number] 14:09:00 Test Item Value Reference Range Interpretation [...] Feb code = ALKP) 2020 CBC W/AUTO [id number] 13:50:00 Test Item Value Reference Range Interpretation [...] BA#) 0.02 x10 3/uL 0.0-0.20 N POCT-GLUCOSE [id number] 08:02:18 Test Item Value Reference Range Interpretation Comments POC-GLUCOSE METER 120 mg/dL 70-110 H : TESTED A T [facility] 6720 (BEAKER) (test code = [place], 0047) 84358: Associate Professor Of Art/Techni jonny ID = [id number] for Ritchie Juarez RAD, CHEST, 1 VIEW, NON [id number] 06:13:00Reason for exam:->s/p PPMShould this be performed at the bedside?->Yes [facility] MARTIN : 1945 Sex: MFINAL REPORT RAD, CHEST, 1 VIEW, NON DEPT INDICATION: s/p PPM COMPARISON: 05/02/2021 FINDINGS: Portable frontal view of the chest. IMPRESSION: Left chest pacer device with leads over the right atrium and right ventricle. Median sternotomy wires are present. Stable cardiomegaly. Atrial appendage closure device present. No focal lung consolidation, pneumothorax or significant pleural effusion. Stable osseous structures. Signed: Davy Carreon MDReport Verified Date/Time: 07/12/2021 06:13:39 [id number] 06:04:19 Test Item Value Reference Range Interpretation Comments PHOSPHORUS (BEAKER) (test code = 4.6 mg/dL 2.3-4.7 604) Associate Professor Of Art ID - [id number] 06:04:18 Test Item Value Reference Range Interpretation Comments MAGNESIUM (BEAKER) (test code = 1.9 mg/dL 1.6-2.6 627) Associate Professor Of Art ID - BSCOMPREHENSIVE METABOLIC [id number] 06:04:16 Test Item Value Reference Range Interpretation [...] S NOT APPLICABLE FOR DIALYSIS PATIEN TS. Associate Professor Of Art ID - BSPOCT-GLUCOSE [id number] 22:11:17 Test Item Value Reference Range Interpretation Comments POC-GLUCOSE METER 146 mg/dL 70-110 H : TESTED A T [facility] 6720 (BEAKER) (test code = [facility], 1538) [id number]: Associate Professor Of Art/Techni jonny ID = [id number] for EVELIO FE GALO POCT-GLUCOSE [id number] 16:54:57 Test Item Value Reference Range Interpretation Comments POC-GLUCOSE METER 79 mg/dL 70-110 : TESTED A T [facility] 6720 (BEAKER) (test code = [facility], 1538) 16115: Associate Professor Of Art/Techni jonny ID = [id number] for Cheli Eddy POCT-GLUCOSE [id number] 10:58:25 Test Item Value Reference Range Interpretation Comments POC-GLUCOSE METER 102 mg/dL 70-110 : TESTED A T [facility] 6720 (BEAKER) (test code = [place], 1538) 16844: Associate Professor Of Art/Techni jonny ID = [id number] for AG EMILI GONZÁLESA [id number] 05:18:57 Test Item Value Reference Range Interpretation Comments MAGNESIUM (BEAKER) (test code = 2.0 mg/dL 1.6-2.6 627) Associate Professor Of Art ID - ANNETTEJUNE [id number] 05:18:57 Test Item Value Reference Range Interpretation Comments PHOSPHORUS (BEAKER) (test code = 4.3 mg/dL 2.3-4.7 604) Associate Professor Of Art ID - LEONARD LCOMPREHENSIVE METABOLIC [id number] 05:18:56 Test Item Value Reference Range Interpretation [...] S NOT APPLICABLE FOR DIALYSIS PATIEN TS. Associate Professor Of Art ID - PIAYA LCBC W/PLT COUNT & AUTO [id number] 05:06:52 Test Item Value Reference Range Interpretation [...] PERCENT (BEAKER) (test code = 2801) POCT-GLUCOSE [id number] 20:28:10 Test Item Value Reference Range Interpretation Comments POC-GLUCOSE METER 110 mg/dL 70-110 : TESTED A T [facility] 6720 (BEAKER) (test code = [facility], 153) [address]: Associate Professor Of Art/Techni jonny ID = [id number] for Alonso duff (pca2)Maci POCT-GLUCOSE [id number] 16:32:08 Test Item Value Reference Range Interpretation Comments POC-GLUCOSE METER 102 mg/dL 70-110 : TESTED A T [facility] 6720 (BEAKER) (test code = [facility], 1538) [address]9495: Associate Professor Of Art/Techni jonny ID = [id number] for BE LL, BEAULA POCT-GLUCOSE [id number] 11:20:47 Test Item Value Reference Range Interpretation Comments POC-GLUCOSE METER 142 mg/dL 70-110 H : TESTED A T [facility] 6720 (BEAKER) (test code = [facility], 1538) 38072: Associate Professor Of Art/Techni jonny ID = [id number] for BE LL, BEAULA POCT-GLUCOSE [id number] 07:24:42 Test Item Value Reference Range Interpretation Comments POC-GLUCOSE METER 119 mg/dL 70-110 H : TESTED A T [facility] 6720 (BEAKER) (test code = [facility], 1538) 35286: Associate Professor Of Art/Techni jonny ID = [id number] for BE LL, BEAULA [id number] 06:18:47 Test Item Value Reference Range Interpretation Comments MAGNESIUM (BEAKER) (test code = 1.8 mg/dL 1.6-2.6 627) Associate Professor Of Art ID - [id number] 06:18:47 Test Item Value Reference Range Interpretation Comments PHOSPHORUS (BEAKER) (test code = 4.2 mg/dL 2.3-4.7 604) Associate Professor Of Art ID - EOCOMPREHENSIVE METABOLIC [id number] 06:18:46 Test Item Value Reference Range Interpretation [...] S NOT APPLICABLE FOR DIALYSIS PATIEN TS. Associate Professor Of Art ID - [id number] 06:01:01 Test Item Value Reference Range Interpretation [...] RANGESSTANDARD DOSE: 2.0 - 3.0 Includes: PROPHYLAXIS for venous thrombosis, systemic embolization; TREATMENT for venous thrombosis and/or pulmonary embolus.HIGH RISK: Target INR is 2.5-3.5 for patients with mechanical heart valves.CBC W/PLT COUNT & AUTO [id number] 05:43:55 Test Item Value Reference Range Interpretation [...] PERCENT (BEAKER) (test code = 2801) POCT-GLUCOSE [id number] 23:30:18 Test Item Value Reference Range Interpretation Comments POC-GLUCOSE METER 99 mg/dL 70-110 : TESTED A T [facility] 6720 (BEAKER) (test code = [facility], 1538) 76396: Associate Professor Of Art/Techni jonny ID = [id number] for Eileen godinez (pca2)Maci CBC W/PLT COUNT & AUTO [id number] 05:45:41 Test Item Value Reference Range Interpretation [...] 0-1 PERCENT (BEAKER) (test code = 2801) [id number] 05:32:19 Test Item Value Reference Range Interpretation Comments MAGNESIUM (BEAKER) (test code = 1.9 mg/dL 1.6-2.6 627) Associate Professor Of Art ID - [id number] 05:32:19 Test Item Value Reference Range Interpretation Comments PHOSPHORUS (BEAKER) (test code = 4.0 mg/dL 2.3-4.7 604) Associate Professor Of Art ID - DBCOMPREHENSIVE METABOLIC [id number] 05:32:18 Test Item Value Reference Range Interpretation [...] S NOT APPLICABLE FOR DIALYSIS PATIEN TS. Associate Professor Of Art ID - DBSARS-COV2/RT-PCR ([facility])2021-07-08 10:23:18 Test Item Value Reference Range Interpretation Comments SARS-COV2/RT-PCR (test Negative Not Detected, Negative, code = 3323579) See external report for linked test SARS-COV-2 PERFORMING LAB [facility] (test code = 4913728) Negative result for this test determines that [...] individuals suspected of COVID-19 by their healthcare provider.This test [...] justifying the authorization of the emergency use ofin vitro diagnostic tests for detection and/or diagnosis of COVID-19 is terminated under Section 564(b)(2) of the Act or the EUA is revoked under Section 564(g) of the Act.Fact Sheet for Healthcare Prov iders:https://www.[employer]/sites/default/files/product/documents/Fact_Sheet_HC _Lgxnwfruf_Affw_PSST-CzM-7.pdfFact Sheet for Healthcare Patients:https://www.[employer]/sites/default/files/product/docume nts/Bnpb_Vvlyl_Fjiecobj_Pnhx_RZLV-RxN-4.pdfPerforming Laboratory:[facility], [place] [id number] 04:26:20 Test Item Value Reference Range Interpretation Comments MAGNESIUM (BEAKER) (test code = 1.9 mg/dL 1.6-2.6 627) Associate Professor Of Art ID - KEILA [id number] 04:26:20 Test Item Value Reference Range Interpretation Comments PHOSPHORUS (BEAKER) (test code = 3.9 mg/dL 2.3-4.7 604) Associate Professor Of Art ID - KEILA GCOMPREHENSIVE METABOLIC [id number] 04:26:19 Test Item Value Reference Range Interpretation [...] S NOT APPLICABLE FOR DIALYSIS PATIEN TS. Associate Professor Of Art ID - KEILA GCBC W/PLT COUNT & AUTO [id number] 03:33:37 Test Item Value Reference Range Interpretation [...] PERCENT (BEAKER) (test code = 2801) HEMOGLOBIN [id number] 12:01:27 Test Item Value Reference Range Interpretation Comments HEMOGLOBIN A1C (BEAKER) (test code = 6.7 % 4.3-6.1 H 368) [id number] 07:53:18 Test Item Value Reference Range Interpretation Comments FERRITIN (BEAKER) (test code = 25.31 ng/mL 5.00-275.00 361) Associate Professor Of Art ID - EMERSONIRON, TIBC, % SAT. (WITHOUT FERRITIN)2021-07-07 07:39:33 Test Item Value Reference Range Interpretation Comments IRON (BEAKER) (test code = 547) 33.0 ug/dL 40.0-160.0 L TOTAL IRON BINDING CAPACITY 439 ug/dL 250-450 (BEAKER) (test code = 769) IRON % SATURATION (2) (BEAKER) 8 % 20-55 L (test code = 9748) Associate Professor Of Art ID - [id number] 05:22:57 Test Item Value Reference Range Interpretation Comments THYROID STIMULATING HORMONE 2.384 uIU/mL 0.350-4.940 (BEAKER) (test code = 772) Associate Professor Of Art ID - KEILA GT4, [id number] 05:22:56 Test Item Value Reference Range Interpretation Comments FREE T4 (BEAKER) (test code = 655) 0.99 ng/dL 0.70-1.48 Associate Professor Of Art ID - KEILA GC-REACTIVE [id number] 05:10:12 Test Item Value Reference Range Interpretation Comments C-REACTIVE PROTEIN (BEAKER) (test 0.27 mg/dL 0.00-0.50 code = 676) Associate Professor Of Art ID - KEILA GCOMPREHENSIVE METABOLIC [id number] 05:10:11 Test Item Value Reference Range Interpretation [...] S NOT APPLICABLE FOR DIALYSIS PATIEN TS. Associate Professor Of Art ID - KEILA GLIPID [id number] 05:10:11 Test Item Value Reference Range Interpretation Comments TRIGLYCERIDES (BEAKER) 98 mg/dL Speci men slightly (test code = 540) hemolyzed CHOLESTEROL (BEAKER) 76 mg/dL Specime n slightly (test code = 631) hemolyzed HDL CHOLESTEROL (BEAKER) 28 mg/dL (test code = 976) LDL CHOLESTEROL 28 mg/dL CALCULATED (BEAKER) (test code = 633) Triglyceride Reference Range: Low Risk <150 Borderline 150-199 High Risk 200- 499 Very High Risk >=500Cholesterol Reference Range: Low Risk <200 Borderline 200-239 High Risk >240HDL Cholesterol Reference Range: Low Risk >=60 High Risk <40LDL Cholesterol Reference Range: Optimal <100 Near Optimal 100-129 Borderline 130-159 High 160-189 Very High >=190 Associate Professor Of Art ID - KEILA [id number] 05:10:10 Test Item Value Reference Range Interpretation Comments MAGNESIUM (BEAKER) 2.0 mg/dL 1.6-2.6 Specimen slightly (test code = 627) hemolyzed Associate Professor Of Art ID - KEILA [id number] 05:10:10 Test Item Value Reference Range Interpretation Comments PHOSPHORUS (BEAKER) 4.8 mg/dL 2.3-4.7 H Specimen slightly (test code = 604) hemolyzed Associate Professor Of Art ID - KEILA GHIGH SENSITIVITY TROPONIN [id number] 05:08:05 Test Item Value Reference Range Interpretation Comments HIGH SENSITIVITY 6 pg/ml See_Comment [Automated message] TROPONIN I (test code = The system which 9697443) generated this result transmitted ref erence range: <=35. Th e reference range was not used to interpr et this result as normal/abnormal . Associate Professor Of Art ID - KEILA GThe DRUM REEL CUTTER STAT High Sensitivity Troponin-I results should be used in conjunction with other diagnostic information such as ECG, clinical observations and information, and patient symptoms to aid in the diagnosis of WI.B-TYPE NATRIURETIC FACTOR (BNP)2021-07-07 05:07:44 Test Item Value Reference Range Interpretation Comments B-TYPE NATRIURETIC PEPTIDE (BEAKER) 322 pg/mL 0-100 H (test code = 700) Associate Professor Of Art ID - KEILA GCBC W/PLT COUNT & AUTO [id number] 04:49:34 Test Item Value Reference Range Interpretation [...] (test code = 2801) RAD, CHEST, 2 [id number] 16:40:00Reason for Exam:->I43 [facility] : 1945 Sex: MFINAL REPORT HISTORY: Cardiomyopathy COMPARISON: 11/29/2020, 12/17/2020 FINDINGS: The lungs are clear. There is a small right pleural effusion. The heart shadow is borderline enlarged. Sternotomy wires are present as is a left atrial appendage closure device. The thoracic aorta is mildly tortuous and calcified. Degenerative changes are present in the spine. IMPRESSION: Small right pleural effusion. Signed: Zhao Arshad MDReport Verified Date/Time: 05/02/2021 16:40:10 Reading Location: [facility] Radiology Reading Room PYP SCAN, INFARCT IMAGING, [id number] 15:01:00Reason for Exam:->ATTR [facility] 1945 Sex: MFINAL REPORT PROCEDURE: TECHNETIUM PYROPHOSPHATE (PYP) PLANAR \T\ SPECT IMAGING CPT CODE: 29993, 43010 INDICATION: Heart Failure, evaluate possible ATTR cardiac amyloidosisBMI: 34.1 IMAGING PROTOCOL:20.1 mCi of Tc-99m pyrophosphate was injected intravenously at rest. Planar images of thechest were obtained 3-4 hours after tracer injection. Majp-yw-sdomj chest ratio of activity was calcu lated from planar images. SPECT (tomographic) images of the chest were also obtained to further define cardiac-region activity. FINDINGS:Myocardial Activity Grade: 2 (myocardial activity equals rib uptake).Heart to Contralateral Chest Ratio: 1.07.Extracardiac Activity: Tracer distribution is irregularin the spine. IMPRESSION:1. 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 There is no prior study for comparison. Signed: Adriano Olea MDReport Verified Date/Time: 02/08/2021 15:01:15 Reading Location: [address] Reading Room XR CHEST 2 VW 2020-12-28 15:42:15HISTORY: Hemorrhage of rectum and anus. TECHNIQUE: [...] Mild cardiomegaly. No signs of acute cardiopulmonary disease.[facility] TSH/FREE T4 IF [id number] 15:41:00 Test Item Value Reference Range Interpretation Comments THYROID STIMULATING HORMONE 2.323 uIU/mL 0.350-4.940 (BEAKER) (test code = 772) Associate Professor Of Art ID - DBSARS-COV2/INFLUENZA/RSV [id number] 15:38:00 Test Item Value Reference Range Interpretation Comments SARS-COV2/RT-PCR Negative Negative (test code = 2611499) INFLUENZA A RT-PCR Negative Negative (test code = 6370912) INFLUENZA B RT-PCR Negative Negative (test code = 2020470) RSV RT-PCR (test Negative Negative Performance of the Xpert code = 1475751) Xpress SARS- CoV-2/Flu/RSV test has only b een established in nasopharyngeal swab specimens. Use of the Xpert Xpress SARS-CoV-2/Flu/ RSV test with other spec imen types has not been as sessed and performance characteristics are unknown. As wit h any molecular test, mutations within the targ eted genetic regions identified by aravind fair Xpert Xpress SARS-CoV -2/Flu/RSV test could affe [...] to e clinician evalu ating the patient. Invali d test results may occ ur from improper specim en collection; hannah lure to follow the aj mmended sample collecti on, handling, and s torage procedures; boris hnical error. False ne gative results may occ ur if virus is presen t at levels below e analytical limi t of detection (LOD: 131 copies/mL). Vir al nucleic acid may persis t in vivo, independent of virus viability. Dete ction of analyte target( s) does not imply that the corresponding v irus(es) are infectious or are the causative agent s for clinical sympto ms. Recent patient exposur e to FluMist or othe r live attenuated infl uenza vaccines may ca use inaccurate posi tive results.This te st has been authorized by [...] Drug and Cosmetic Ac t, 21 U.S.C. 360bbb-3 (b)(1), unless the auth orization is terminated o r revoked sooner.Fact She et for Healthcare Prov iders: https://www.Optosecurity.com/D ocuments/Xpert% 20Xpress%2 1UWFB-PfO-8-Flu -RSV/302-4 508%20Rev.%20B% 20HCP%20Fa ct%20Sheet.pdfF act Sheet for Healthcare Patients: https://www.Optosecurity.com/D ocuments/Xpert% 20Xpress%2 4PDRU-JgB-2-Flu -RSV/302-4 507%20Rev.%20B% 20Patient% 20Fact%20Sheet. pdf TROPONIN [id number] 14:53:00 Test Item Value Reference Range Interpretation Comments TROPONIN I (BEAKER) (test code = 397) < ng/mL 0.00-0.03 [...] failure, acidosis, acute neurological disease, and persistent tachyarrhythmia.Associate Professor Of Art ID - DBB-TYPE NATRIURETIC FACTOR (BNP)2020-12-17 14:46:00 Test Item Value Reference Range Interpretation Comments B-TYPE NATRIURETIC PEPTIDE (BEAKER) 152 pg/mL 0-100 H (test code = 700) Associate Professor Of Art ID - DBCOMPREHENSIVE METABOLIC [id number] 14:46:00 Test Item Value Reference Range Interpretation [...] S NOT APPLICABLE FOR DIALYSIS PATIEN TS. Associate Professor Of Art ID - DBBLOOD GAS, [id number] 14:21:00 Test Item Value Reference Range Interpretation [...] 1819) 21.0 CBC W/PLT COUNT & AUTO [id number] 14:21:00 Test Item Value Reference Range Interpretation [...] (test code = 2801) RAD, CHEST, 2 [id number] 13:47:00Reason for exam:->SHORTNESS OF BREATH [facility] 1945 Sex: MFINAL REPORT TECHNIQUE: Frontal and lateral views of the chest. INDICATION: SHORTNESS OF BREATH COMPARISON: 11/29/2020. FINDINGS: LINES/TUBES: None. LUNGS: The lungs are well inflated and clear. No consolidation or pulmonary edema. PLEURA: Small right-sided pleural effusion. No pneumothorax.. HEART AND MEDIASTINUM: The cardiomediastinal silhouette is enlarged, unchanged. Postsurgical changes from median sternotomy.. SOFT TISSUES AND BONES: Unremarkable. IMPRESSION:Small right-sided pleural effusion. Stable cardiomegaly.. Signed: Rachel Buncheport Verified Date/Time: 12/17/2020 13:47:13 Reading Location: [address] Body Reading Room CT, CHEST WITH IV CONTRAST- PE TEST [id number] 15:31:00Unlisted Reason for Exam - Click Yes and Enter Reason Below->Yes Unlisted Reason for Exam->R06.02[facility] MARTINCAREY BLAKELY : 1945 Sex: MFINAL REPORT CT, CHEST WITH IV CONTRAST- PE TEST DESIGN HISTORY: Shortness of tszlonO20.02 COMPARISON: CT chest 05/21/2011 TECHNIQUE: CT chest [...] seen given limitations of respiratory motion. Other c ardiovascular findings: Ectasia of the ascending thoracic aorta up to 45 mm. Extensive coronary artery calcifications. Moderate atherosclerotic calcifications of the thoracic aorta and branch vessels. Postsurgical changes of CABG. Marked cardiomegaly Lungs: Respiratory motion artifact. Compressive atel ectasis in the right lower lobe related to [...] elevated right heart pressures. Cholecystectomy clips. Moderate splenomegaly, 15 cm longaxis.Bones: Median sternotomy wires. Degenerative disc diseaseChest wall: Unremarkable. IMPRESSION: 1.No evidence of an acute pulmonary embolism on this exam. 2.Moderate right pleural effusion with resulting atelectasis.3.Cardiomegaly, coronary artery calcifications, and changes of CABG.4.Ectasia of the ascending thoracic aorta up to 45 mm. Recommend 6-12 month follow-up CTA chest.5.Moderate splenomegaly Signed: Kezia Ottoeport Verified Date/Time: 12/15/2020 15:31:14 -[id number] 15:24:00 Test Item Value Reference Range Interpretation Comments POC-CREATININE 1.0 mg/dL 0.6-1.3 : TESTED AT [facility] ([facility]) (test [address] [facility] code = 1859) [place], [address]: Associate Professor Of Art/Techni jonny ID = [id number] for Bekah Mccall POC-EGFR (ANDREA) 73 mL/min/1.73M2 (test code = 1860) RAD, CHEST, 2 [id number] 17:53:00Reason for Exam:->l25.10 [facility] : 1945 Sex: MFINAL REPORT RAD, CHEST, 2 VIEWS TECHNIQUE: Frontal and lateral views of the chest. INDICATION: l25.10 COMPARISON: Chest radiograph 12/29/2012. IMPRESSION: Lungs: The lungs are well inflated and clear. No consolidation or pulmonary edema. Pleura: No pleural effusion or pneumothorax. Heart and Mediastinum: Cardiomegaly. Mediastinal surgical clips. Tortuous thoracic aorta with knob calcifications, atrial appendage closure device, mild central vascular congestion. Lines/Tubes: None. Soft Tissues and Bones: Median sternotomy wires. Signed: Kezia Otto Verified Date/Time: 11/29/2020 17:53:18 -COV2/RT-PCR ([facility])2020-10-03 12:47:00 Test Item Value Reference Range Interpretation Comments SARS-COV2/RT-PCR (test Negative Not Detected, Negative, code = 4437477) See external report for linked test SARS-COV-2 PERFORMING LAB [facility] (test code = 7653715) Negative result for this test determines that [...] individuals suspected of COVID-19 by their healthcare provider.This test [...] justifying the authorization of the emergency use ofin vitro diagnostic tests for detection and/or diagnosis of COVID-19 is terminated under Section 564(b)(2) of the Act or the EUA is revoked under Section 564(g) of the Act.Fact Sheet for Healthcare Prov iders:https://www.Netsket/sites/default/files/product/documents/Fact_Sheet_HC _Iqkgzxify_Qexe_JXRR-RhR-0.pdfFact Sheet for Healthcare Patients:https://www.[employer]/sites/default/files/product/docume nts/Tzwt_Kytdt_Zxpqwjox_Kpkw_ANAX-IiL-9.pdfPerforming Laboratory:[facility], [place] [address]CZLIUIFLMSR TIME/INR 2020-10-03 08:11:00 Test Item Value Reference [...] is 2.5-3.5 for patients wiht mechanical heart valves.SARS-COV2/RT-PCR ([facility]) 2020-09-12 11:24:00 Test Item Value Reference Range Interpretation Comments SARS-COV2/RT-PCR (test Negative Not Detected, Negative, code = 5507520) See external report for linked test SARS-COV-2 PERFORMING LAB [facility] (test code = 0672850) Negative result for this test determines that [...] individuals suspected of COVID-19 by their healthcare provider.This test [...] justifying the authorization of the emergency use ofin vitro diagnostic tests for detection and/or diagnosis of COVID-19 is terminated under Section 564(b)(2) of the Act or the EUA is revoked under Section 564(g) of the Act.Fact Sheet for Healthcare Prov iders:https://www.[employer]/sites/default/files/product/documents/Fact_Sheet_HC _Vmyzejlyg_Pvpw_HDBW-RzO-9.pdfFact Sheet for Healthcare Patients:https://www.[employer]/sites/default/files/product/docume nts/Ageq_Tbhnf_Vedagbmo_Seag_FGEE-DiW-1.pdfPerforming Laboratory:[facility], [place] [address]QQGDC METABOLIC PANEL 2020-09-12 08:22:00 Test Item Value [...] S NOT APPLICABLE FOR DIALYSIS PATIEN TS. Associate Professor Of Art ID - [place] FCBC W/PLT COUNT & AUTO [id number] 08:05:00 Test Item Value Reference Range Interpretation [...] % 0-1 PERCENT (BEAKER) (test code = 1773)
[2023-07-22 22:33] LABS: Absolute Lymphocytes (CBC) 1.4 K/uL (0.7-4.9); Hematocrit 38.1 % (39.6-49.0); Lymphocytes % 28.4 % (15.3-44.8); MCV 88.9 fL (80-100); MPV 8.8 fL (7.6-11.3); Platelets 160 thou/uL (152-406); RBC Red Blood Cell Count 4.29 M/uL (4.33-5.43)
[2023-07-22 22:44] LABS: Albumin 3.5 g/dL (3.4-5.0); Bilirubin Total 0.8 mg/dL (0.2-1.0); Potassium 3.8 mEq/L (3.5-5.1); Protein, Total 7.7 g/dL (6.4-8.2)
[2023-07-22 22:49] LABS: Specific Gravity 1.015 (1.005-1.030); Urine Bacteria None Seen /HPF (<20); Urine Bilirubin NEGATIVE (Negative); Urine Blood Negative (Negative); Urine Clarity Clear (Clear); Urine Color Light-Yellow (Yellow); Urine Glucose 4+ (Over) (Negative); Urine Protein NEGATIVE (Negative); Urine RBC <5 /HPF (None Seen); Urine Urobilinogen Normal (Normal)
[2023-07-22] MEDS ORDERED: ACETAMINOPHEN 500 MG TAB ONE (22:51)
[2023-07-22] MEDS ORDERED: CYCLOBENZAPRINE 10 MG TAB ONE (22:51)
[2023-07-22] MEDS ORDERED: PROMETHAZINE 25 MG TABLET ONE (22:52)
[2023-07-22] MEDS ORDERED: MORPHINE 4 MG/ML SYR ONE (22:52)
--- NOTE | 2023-07-23 01:11 | EDPHYS ---
Physician Documentation [facility] Name: Bryan Nance Age: 78 yrs Sex: Male : 1945 Arrival Date: 07/22/2023 Time: 21:41 Bed 5 Private MD: ED Physician Dami Vega HPI: 07/22 21:50 This 78 yrs old Male presents to ER via Unassigned with complaints of Low Back sp4 Pain. 21:54 PMH - 12/29 15:31 No Known Allergies Home Meds: 15:31 Eliquis 5 mg Oral tab 1 tab 2 sp4 times per day; potassium chloride 20 mEq Oral TbER 1 tab 2 times per day; lisinopril 10 mg Oral tab 1 tab once daily; allopurinol 300 mg Oral tab 1 tab once daily; furosemide 20 mg Oral tab 1 tab once daily; aspirin 81 mg Oral TbEC 1 tab once daily; metoprolol succinate 100 mg Oral CSpX 1 cap once daily; Lasix 40 mg Oral tab 1 tab 2 times per day; Farxiga 5 mg Oral tab 1 tab once daily; atorvastatin 80 mg Oral tab 1 tab once daily; . 23:05 78-year-old male with history of bilateral total knee replacement right total hip sp4 replacement and also history of spinal injury in the [employer] in [employer], since with worsening lower back pain situated in the central lower spine L4-L5 levels S1 level for the past several days worsening today in the afternoon.. Patient is ambulatory denied weakness or numbness in the lower extremities.. Historical: - Allergies: 21:50 No Known Allergies; bp - Home Meds: 21:50 atorvastatin 80 mg Oral tab 1 tab once daily [Active]; allopurinol 300 mg Oral tab 1 bp tab once daily [Active]; apixaban 5 mg Oral tab 1 tab 2 times per day [Active]; aspirin 81 mg Oral TbEC 1 tab once daily [Active]; cholecalciferol (vitamin D3)-vitamin K2 Oral daily [Active]; Eliquis 5 mg Oral tab 1 tab 2 times per day [Active]; Farxiga 5 mg Oral tab 1 tab once daily [Active]; furosemide 20 mg Oral tab 1 tab once daily [Active]; Lasix 40 mg Oral tab 1 tab 2 times per day [Active]; lisinopril 10 mg Oral tab 1 tab once daily [Active]; metformin 500 mg Oral Tb24 1 tab once daily [Active]; metoprolol succinate 100 mg Oral CSpX 1 cap once daily [Active]; metoprolol succinate 100 mg Oral Tb24 1 tab twice a day [Active]; potassium chloride 20 mEq Oral TbER 1 tab 2 times per day [Active]; simvastatin 10 mg Oral tab 1 tab once daily [Active]; - PMHx: 21:50 Atrial Fib; CHF; Hypertensive disorder; Hypercholesterolemia; High Cholesterol; bp Hypertension; Gout; - PSHx: 21:50 Appendectomy; Heart ablation; Cholecystectomy; Coronary artery bypass graft; back and bp knee SX; hernia repair; hernia repair x 2; R total knee; pacemaker; - Immunization history:: Adult Immunizations up to date. - Social history:: Smoking status: Patient denies any tobacco usage or history of. - Family history:: not pertinent. ROS: 23:05 Constitutional: Negative for fever, chills, and weight loss, Eyes: Negative for injury, sp4 pain, redness, and discharge, Back: Positive back pain acute atraumatic 23:05 All other systems are negative, Exam: 23:05 Constitutional: This is a well developed, well nourished patient who is awake, alert, sp4 and in no acute distress. Head/Face: Normocephalic, atraumatic. Eyes: Pupils equal round and reactive to light, extra-ocular motions intact. Lids and lashes normal. Conjunctiva and sclera are not injected. Cornea within normal limits. Periorbital areas with no swelling, redness, or edema. ENT: Nares patent. No nasal discharge, no septal abnormalities noted. Tympanic membranes are normal and external auditory canals are clear. Oropharynx with no redness, swelling, or masses, exudates, or evidence of obstruction, uvula midline. Mucous membranes moist. Neck: Trachea midline, no thyromegaly or masses palpated, and no cervical lymphadenopathy. Supple, full range of motion without nuchal rigidity, or vertebral point tenderness. Chest/axilla: Normal chest wall appearance and motion. Nontender with no deformity. No lesions are appreciated. Cardiovascular: Regular rate and rhythm with a normal S1 and S2. No gallops, murmurs, or rubs. Normal PMI, no JVD. No pulse deficits. Respiratory: Lungs have equal breath sounds bilaterally, clear to auscultation and percussion. No rales, rhonchi or wheezes noted. No increased work of breathing, no retractions or nasal flaring. Abdomen/GI: Soft, non-tender, with normal bowel sounds. No distension or tympany. No guarding or rebound. No evidence of tenderness throughout. Back: Positive midline lower spinal tenderness. No costovertebral tenderness. Skin: Warm, dry with normal turgor. Normal color with no rashes, no lesions, and no evidence of cellulitis. MS/ Extremity: Pulses equal, no cyanosis. Neurovascular intact. Full, normal range of motion. Neuro: Awake and alert, GCS 15, oriented to person, place, time, and situation. Cranial nerves II-XII grossly intact. Motor strength 5/5 in all extremities. Sensory grossly intact. Psych: Awake, alert, with orientation to person, place and time. Behavior, mood, and affect are within normal limits Vital Signs: 21:50 BP 121 / 60; Pulse 59; Resp 16; Temp 98; Pulse Ox 100% ; bp 23:46 BP 108 / 55; Pulse 61; Resp 18; Pulse Ox 99% on R/A; jw7 07/23 00:30 BP 106 / 57; Pulse 60; Resp 17; Pulse Ox 99% ; pf1 01:23 BP 110 / 56; Pulse 62; Resp 17; Pulse Ox 97% ; pf1 MDM: 07/22 21:50 Patient medically screened. sp4 23:08 Differential diagnosis: arthritis, strain, fracture, sciatica, contusion, Herniated sp4 disc UTI. Data reviewed: vital signs, nurses notes. 07/23 01:03 ED course: CT L spine and pelvis - COMPARISON: No relevant prior studies available. sp4 FINDINGS: Vertebrae: 4 mm of anterolisthesis of L3 on L4. No acute fracture or subluxation. Discs/spinal canal/neural foramina: Moderate disc space narrowing with degenerative endplate changes at L2-3. Moderate disc space narrowing with degenerative endplate changes at L3-4. Severe disc space narrowing with degenerative endplate changes at L4-5 and L5-S1. Mild to moderate spinal canal narrowing at L1-2. Moderate spinal canal narrowing at L3-4. Moderate bilateral neural foraminal narrowing at L4-5. Moderate right neural foraminal narrowing at L5-S1. Soft tissues: Unremarkable. Vasculature: Scattered atherosclerotic vascular calcifications. * A single impression for all exams can be found at the end of this report EXAM: CT Pelvis Without Intravenous Contrast CLINICAL HISTORY: The patient is 78 years old and is Male; back pain TECHNIQUE: Axial computed tomography images of the pelvis without intravenous contrast. Sagittal and coronal reformatted images were created and reviewed. This CT exam was performed using one or more of the following dose reduction techniques: automated exposure control, adjustment of the mA and/or kV according to patient size, and/or use of iterative reconstruction technique. COMPARISON: No relevant prior studies available. FINDINGS: Bowel: Unremarkable. No obstruction. No mucosal thickening. Appendix: No findings to suggest acute appendicitis. Intraperitoneal space: Unremarkable. No free air. No significant fluid collection. Bladder: Unremarkable. No stones. Reproductive: Bilateral hydroceles. Bones/joints: Right hip arthroplasty. No acute fracture. No dislocation. Soft tissues: Small fat-containing left inguinal hernia. Vasculature: Unremarkable. No lower abdominal aortic aneurysm. Lymph nodes: Unremarkable. No enlarged lymph nodes. * A single impression for all exams can be found at the end of this report IMPRESSION: CT Lumbar Spine Without Intravenous Contrast: No acute fracture or subluxation. CT Pelvis Without Intravenous Contrast: No acute findings in the pelvis.. 01:07 Consideration of Admission/Observation Escalation of care including sp4 admission/observation considered. ED course: Patient has a moderate to severe degenerative spinal arthritis based on the CT L-spine review. --Moderate disc space narrowing with degenerative endplate changes at L2-L3 with moderate disc space narrowing with degenerative endplate changes at L3-L4, severe disc space narrowing with degenerative endplate changes at L4-L5 and L5-S1. Mild to moderate spinal canal narrowing at L1-L2. Moderate spinal canal narrowing at L3-L4. Moderate bilateral neural foraminal narrowing at L4-L5. Moderate right neuroforaminal narrowing at L5-S1. Unremarkable soft tissue based on the CT, overall CT L-spine reveals no acute fracture or subluxation but moderate to severe degenerative changes at multiple levels. . ED course: Patient will be advised to have MRI of the L-spine ordered by his senior java programmer analyst in the next 2 weeks. Also will refer patient to neurosurgeon Ever Arias at [facility]. 07/22 21:55 Order name: CBC with Diff; Complete Time: 22:45 sp4 07/22 21:55 Order name: CMP; Complete Time: 22:45 sp4 07/22 21:55 Order name: Lipase; Complete Time: 22:45 sp4 07/22 21:55 Order name: Urinalysis W/Microscopic; Complete Time: 23:46 sp4 07/22 22:45 Order name: CT Lumbar Spine Wo Con sp4 07/22 22:45 Order name: CT Pelvis wo Cont sp4 07/22 21:55 Order name: IV Saline Lock; Complete Time: 22:23 sp4 07/22 21:55 Order name: Labs collected and sent; Complete Time: 22:24 sp4 Administered Medications: 07/22 22:40 Drug: morphine IVP or IV 4 mg IVP once over 4 mins Route: IVP; Infused Over: 4 mins; pf1 Site: right antecubital; 23:00 Follow up: Response: Marked relief of symptoms; Pain is decreased j7 22:40 Drug: Acetaminophen PO 1000 mg PO once Route: PO; pf1 07/23 01:25 Follow up: Response: No adverse reaction j7 07/22 22:40 Drug: Cyclobenzaprine PO 10 mg PO once Route: PO; pf1 23:40 Follow up: Response: Marked relief of symptoms jj7 22:40 Drug: Promethazine PO 25 mg PO once Route: PO; pf1 23:00 Follow up: Response: No adverse reaction j7 Disposition Summary: 07/23/23 01:11 Discharge Ordered Problem: new sp4 Symptoms: have improved sp4 Condition: Stable sp4 Diagnosis - Osteoarthritis, unspecified site sp4 - Degenerative spinal disc disease, degenerative spinal arthritis, acute exacerbation sp4 of chronic lower back pain, multilevel degenerative L-spine disease with multilevel neuroforaminal narrowing and spinal canal narrowing. Followup: sp4 - With: Private Physician - When: 7 - 10 days - Reason: Recheck today's complaints Discharge Instructions: - Discharge Summary Sheet sp4 - Degenerative Disk Disease sp4 Forms: - Patient Portal Instructions sp4 Prescriptions: - Cyclobenzaprine 10 mg Oral Tablet - take 1 tablet ORAL route every 8 hours As needed; 30 tablet; Refills: 0, sp4 Product Selection Permitted - Tramadol 50 mg Oral tablet - take 1 tablet ORAL route every 8 hours as needed; 20 tablet; Refills: 0, sp4 Product Selection Permitted Signatures: Dispatcher [employer] Marlon Farris RN RN bp Zoila Mccarthy RN RN pf1 Dami Vega MD MD sp4 Opal Pastor RN jj7
--- NOTE | 2023-07-23 01:11 | ER ---
Nurse's Notes [facility] Name: Bryan Nance Age: 78 yrs Sex: Male : 1945 Arrival Date: 07/22/2023 Time: 21:41 Bed 5 Private MD: Diagnosis: Osteoarthritis, unspecified site;Degenerative spinal disc disease, degenerative spinal arthritis, acute exacerbation of chronic lower back pain, multilevel degenerative L-spine disease with multilevel neuroforaminal narrowing and spinal canal narrowing. Presentation: 07/22 21:50 Chief complaint: Patient states: LUMBAR PAIN x2-3 WK, SEEN BY CHIROPRACTOR. Coronavirus bp screen: At this time, the client does not indicate any symptoms associated with coronavirus-19. Ebola Screen: No symptoms or risks identified at this time. Initial Sepsis Screen: Does the patient meet any 2 criteria? No. Patient's initial sepsis screen is negative. Does the patient have a suspected source of infection? No. Patient's initial sepsis screen is negative. Risk Assessment: Do you want to hurt yourself or someone else? Patient reports no desire to harm self or others. Onset of symptoms is unknown. 21:50 Method Of Arrival: Wheelchair bp 21:50 Acuity: CRICKET 3 bp Triage Assessment: 21:50 General: Appears uncomfortable, Behavior is calm, cooperative, appropriate for age. bp Pain: Complains of pain in low back area and mid back area. Historical: - Allergies: 21:50 No Known Allergies; bp - Home Meds: 21:50 atorvastatin 80 mg Oral tab 1 tab once daily [Active]; allopurinol 300 mg Oral tab 1 bp tab once daily [Active]; apixaban 5 mg Oral tab 1 tab 2 times per day [Active]; aspirin 81 mg Oral TbEC 1 tab once daily [Active]; cholecalciferol (vitamin D3)-vitamin K2 Oral daily [Active]; Eliquis 5 mg Oral tab 1 tab 2 times per day [Active]; Farxiga 5 mg Oral tab 1 tab once daily [Active]; furosemide 20 mg Oral tab 1 tab once daily [Active]; Lasix 40 mg Oral tab 1 tab 2 times per day [Active]; lisinopril 10 mg Oral tab 1 tab once daily [Active]; metformin 500 mg Oral Tb24 1 tab once daily [Active]; metoprolol succinate 100 mg Oral CSpX 1 cap once daily [Active]; metoprolol succinate 100 mg Oral Tb24 1 tab twice a day [Active]; potassium chloride 20 mEq Oral TbER 1 tab 2 times per day [Active]; simvastatin 10 mg Oral tab 1 tab once daily [Active]; - PMHx: 21:50 Atrial Fib; CHF; Hypertensive disorder; Hypercholesterolemia; High Cholesterol; bp Hypertension; Gout; - PSHx: 21:50 Appendectomy; Heart ablation; Cholecystectomy; Coronary artery bypass graft; back and bp knee SX; hernia repair; hernia repair x 2; R total knee; pacemaker; - Immunization history:: Adult Immunizations up to date. - Social history:: Smoking status: Patient denies any tobacco usage or history of. - Family history:: not pertinent. Screenin:27 [facility] ED Fall Risk Assessment (Adult) History of falling in the last 3 months, jw7 including since admission No falls in past 3 months (0 pts) Score/Fall Risk Level 0 - 2 = Low Risk Oriented to surroundings, Maintained a safe environment. Abuse screen: Denies threats or abuse. Denies injuries from another. Nutritional screening: No deficits noted. Tuberculosis screening: No symptoms or risk factors identified. Assessment: 22:24 General: Appears in no apparent distress. uncomfortable, Behavior is calm, cooperative. jw7 Pain: Complains of pain in lumbar area, left low back, left mid back, right mid back and right low back Pain does not radiate. Pain currently is 8 out of 10 on a pain scale. Quality of pain is described as sharp, shooting, Pain began suddenly, Is intermittent, Alleviated by medications, rest, Aggravated by increased activity, repositioning, Noted to be grimacing, moaning, resistant to movement. Neuro: Sanchez Agitation-Sedation Scale (RASS): 0 - Alert and Calm Level of Consciousness is awake, alert, obeys commands, Oriented to person, place, time, situation. Cardiovascular: No deficits noted. Respiratory: No deficits noted. GI: No deficits noted. No signs and/or symptoms were reported involving the gastrointestinal system. : No deficits noted. No signs and/or symptoms were reported regarding the genitourinary system. EENT: No deficits noted. No signs and/or symptoms were reported regarding the EENT system. Derm: No deficits noted. No signs and/or symptoms reported regarding the dermatologic system. Musculoskeletal: No deficits noted. No signs and/or symptoms reported regarding the musculoskeletal system. 23:27 Reassessment: Patient appears in no apparent distress at this time. No changes from [facility] previously documented assessment. Patient and/or family updated on plan of care and expected duration. Pain level reassessed. Patient is alert, oriented x 3, equal unlabored respirations, skin warm/dry/pink. Vital Signs: 21:50 BP 121 / 60; Pulse 59; Resp 16; Temp 98; Pulse Ox 100% ; bp 23:46 BP 108 / 55; Pulse 61; Resp 18; Pulse Ox 99% on R/A; jw7 07/23 00:30 BP 106 / 57; Pulse 60; Resp 17; Pulse Ox 99% ; pf1 01:23 BP 110 / 56; Pulse 62; Resp 17; Pulse Ox 97% ; pf1 ED Course: 07/22 21:46 Patient arrived in ED. jj6 21:50 Dami Vega MD is Attending Physician. sp4 21:50 Arm band placed on. bp 21:54 Triage completed. bp 22:23 Initial lab(s) drawn, by la, sent to lab. Inserted saline lock: 22 gauge in right [facility] antecubital area, using aseptic technique. Blood collected. 22:27 Patient has correct armband on for positive identification. Bed in low position. Call [facility] light in reach. Side rails up X 1. 23:42 CT Lumbar Spine Wo Con In Process Unspecified. EDMS 23:43 CT Pelvis wo Cont In Process Unspecified. EDMS 07/23 01:24 No provider procedures requiring assistance completed. IV discontinued, intact, jj7 bleeding controlled, No redness/swelling at site. Pressure dressing applied. Administered Medications: 07/22 22:40 Drug: morphine IVP or IV 4 mg IVP once over 4 mins Route: IVP; Infused Over: 4 mins; pf1 Site: right antecubital; 23:00 Follow up: Response: Marked relief of symptoms; Pain is decreased jj7 22:40 Drug: Acetaminophen PO 1000 mg PO once Route: PO; pf1 07/23 01:25 Follow up: Response: No adverse reaction j7 07/22 22:40 Drug: Cyclobenzaprine PO 10 mg PO once Route: PO; pf1 23:40 Follow up: Response: Marked relief of symptoms jj7 22:40 Drug: Promethazine PO 25 mg PO once Route: PO; pf1 23:00 Follow up: Response: No adverse reaction jj7 Medication: 07/23 01:24 VIS not applicable for this client. jj7 Outcome: 01:11 Discharge ordered by MD. gonzalez 01:24 Discharged to home ambulatory, with significant other, jj7 01:24 Condition: improved 01:24 Discharge instructions given to patient, Instructed on discharge instructions, follow up and referral plans. medication usage, Demonstrated understanding of instructions, follow-up care, medications, Prescriptions given X 2, 01:26 Patient left the ED. jj7 Signatures: Dispatcher [employer] EDMS Marlon Rubalcava, RN RN Pavithra Interiano jj6 Zunilda Stephen RN RN jw7 Opal Pastor RN RN jj7 Zoila Mccarthy RN RN pf1 Dami Vega MD MD sp4
[2023-07-23 01:42] VITALS: TEMP 98
[2023-07-23 01:49] VITALS: BP 110/56; O2SAT 97
--- NOTE | 2023-07-23 15:37 | RAD REPORT ---
EXAM DESCRIPTION: CT - Spine Lumbar Wo Con - 07/23/2023 6:51 am CLINICAL HISTORY: The patient is 78 years old and is Male; back pain TECHNIQUE: Axial computed tomography images of the lumbar spine without intravenous contrast. Sagi ttal and coronal reformatted images were created and reviewed. This CT exam was performed using one or more of the following dose reduction techniques: automated exposure control, adjustment of the mA and/or kV according to patient size, and/or use of iterative reconstruction technique. COMPARISON: No relevant prior studies available. FINDINGS: Vertebrae: 4 mm of anterolisthesis of L3 on L4. No acute fracture or subluxation. Discs/spinal canal/neural foramina: Moderate disc space narrowing with degenerative endplate spangler ges at L2-3. Moderate disc space narrowing with degenerative endplate changes at L3-4. Severe disc space narrowing with degenerative endplate changes at L4-5 and L5-S1. Mild to moderate spinal canal narrowing at L1-2. Moderate spinal canal narrowing at L3-4. Moderate bilateral neural foraminal narrowing at L4-5. Moderate right neural foraminal narrowing at L5-S1. Soft tissues: Unremarkable. Vasculature: Scattered atherosclerotic vascular calcifications. * A single impression for all exams can be found at the end of this report EXAM DESCRIPTION: CT Pelvis Without Intravenous Contrast CLINICAL HISTORY: The patient is 78 years old and is Male; back pain TECHNIQUE: Axial computed tomography images of the pelvis without intravenous contrast. Sagittal a nd coronal reformatted images were created and reviewed. This CT exam was performed using one or mo re of the following dose reduction techniques: automated exposure control, adjustment of the mA and /or kV according to patient size, and/or use of iterative reconstruction technique. COMPARISON: No relevant prior studies available. FINDINGS: Bowel: Unremarkable. No obstruction. No mucosal thickening. Appendix: No findings to suggest acute appendicitis. Intraperitoneal space: Unremarkable. No free air. No significant fluid collection. Bladder: Unremarkable. No stones. Reproductive: Bilateral hydroceles. Bones/joints: Right hip arthroplasty. No acute fracture. No dislocation. Soft tissues: Small fat-containing left inguinal hernia. Vasculature: Unremarkable. No lower abdominal aortic aneurysm. Lymph nodes: Unremarkable. No enlarged lymph nodes. * A single impression for all exams can be found at the end of this report IMPRESSION: CT Lumbar Spine Without Intravenous Contrast: No acute fracture or subluxation. CT Pelvis Without Intravenous Contrast: No acute findings in the pelvis. Electronically signed by: Carlo Farrell MD 07/23/2023 12:15 AM CDT Due to temporary technical issues with the PACS/Fluency reporting system, reports are being signed by the in house radiologists without review as a courtesy to insure prompt reporting. The interpreting radiologist is fully responsible for the content of the report.
== END 2023-07-23 01:26 | disposition home or self-care (01) ==
LOC: ER 21:41
DX: M19.90 Unspecified osteoarthritis, unspecified site (principal); M51.87 Other intervertebral disc disorders, lumbosacral region; M51.36 Other intervertebral disc degeneration, lumbar region; I10 Essential (primary) hypertension; I50.9 Heart failure, unspecified; Z95.1 Presence of aortocoronary bypass graft; Z95.0 Presence of cardiac pacemaker; Z79.01 Long term (current) use of anticoagulants; Z79.82 Long term (current) use of aspirin
CPT/HCPCS: 85025; 81001; 36415; 83690; 80053; 72131; 72192; 96374; 99284; Q0169

== ENCOUNTER 2024-07-24 10:19 | Emergency (ER) | payer OTHER ==
[2024-07-24] MEDS ORDERED: ACETAMINOPHEN 500 MG TAB ONE (12:58)
[2024-07-24] MEDS ORDERED: METOCLOPRAMIDE 5 MG TAB ONE (12:58)
--- NOTE | 2024-07-24 13:51 | ER ---
Nurse's Notes [facility] Name: rByan Nance Age: 79 yrs Sex: Male : 1945 Arrival Date: 07/24/2024 Time: 10:19 Bed 13 Private MD: Diagnosis: Epistaxis Presentation: 07/24 10:40 Chief complaint: Patient states: nose bleed on and off x 1 week ago, pt reports aa5 bleeding to left nare for approximately 1 hr without being able to stop bleeding, pt currently holding pressure to nose. Reports he takes Eliquis. Coronavirus screen: At this time, the client does not indicate any symptoms associated with coronavirus-19. Ebola Screen: Patient denies travel to an Ebola-affected area in the 21 days before illness onset. Initial Sepsis Screen: Does the patient meet any 2 criteria? No. Patient's initial sepsis screen is negative. Does the patient have a suspected source of infection? No. Patient's initial sepsis screen is negative. Risk Assessment: Do you want to hurt yourself or someone else? Patient reports no desire to harm self or others. Onset of symptoms was July 24, 2024. 10:40 Method Of Arrival: Ambulatory aa5 10:40 Acuity: CRICKET 3 aa5 Historical: - PMHx: 10:39 Atrial Fib; CHF; Gout; High Cholesterol; Hypercholesterolemia; Hypertension; aa5 Hypertensive disorder; - PSHx: 10:39 Appendectomy; back and knee SX; Cholecystectomy; Coronary artery bypass graft; Heart aa5 ablation; hernia repair; hernia repair x 2; pacemaker; R total knee; - Immunization history:: Adult Immunizations unknown. - Infectious Disease History:: Denies. - Social history:: Smoking status: Patient denies any tobacco usage or history of. Screenin:46 [facility] ED Fall Risk Assessment (Adult) History of falling in the last 3 months, ko1 including since admission No falls in past 3 months (0 pts) Confusion or Disorientation No (0 pts) Intoxicated or Sedated No (0 pts) Impaired Gait No (0 pts) Mobility Assist Device Used No (0 pt) Altered Elimination No (0 pt) Score/Fall Risk Level 0 - 2 = Low Risk Oriented to surroundings, Maintained a safe environment, Educated pt \T\ family on fall prevention, incl call for assistance when getting out of bed, Assessed \T\ reinforced patient's understanding of fall precautions, Hourly rounding (assess needs \T\ fall precautionary measures) done. Abuse screen: Denies threats or abuse. Denies injuries from another. Nutritional screening: No deficits noted. Tuberculosis screening: No symptoms or risk factors identified. Assessment: 10:46 General: Appears in no apparent distress. Behavior is calm, cooperative, appropriate ko1 for age. Pain: Denies pain. Neuro: No deficits noted. Cardiovascular: No deficits noted. Respiratory: No deficits noted. GI: No deficits noted. : No deficits noted. EENT: Nares with bleeding noted on left. Derm: No deficits noted. Musculoskeletal: No deficits noted. Vital Signs: 10:40 BP 132 / 76; Pulse 88; Resp 18 S; Temp 97.8(TE); Pulse Ox 99% on R/A; Weight 83.91 kg aa5 (R); Height 5 ft. 5 in. (R); 10:46 BP 123 / 63; Pulse 61; Resp 15; Pulse Ox 97% ; ko1 13:31 BP 123 / 68; Pulse 62; Resp 16; Pulse Ox 99% ; ko1 10:40 Body Mass Index 30.79 (83.91 kg, 165.1 cm) aa5 ED Course: 10:21 Patient arrived in ED. im 10:21 Bowen Steven MD is Attending Physician. ec2 10:37 Jennifer Hill, JYOTI is Primary Nurse. ko1 10:39 Arm band placed on Patient placed in an exam room, on a stretcher. aa5 10:41 Triage completed. aa5 10:46 Patient has correct armband on for positive identification. Bed in low position. Call ko1 light in reach. Provided Education on: bleeding. Client placed on continuous cardiac and pulse oximetry monitoring. NIBP monitoring applied. threat monitoring analyst on. Door closed. Noise minimized. Lights dimmed. Warm blanket given. Pillow given. 12:00 Assist provider with nosebleed control using direct pressure, nasal clamp, rhino rocket ko1 placed for extensive packing needs, Bleeding from left nare. Set up for procedure. Performed by Bowen Steven MD Bleeding decreased. Patient tolerated well. 13:50 Whit Amin MD is Referral Physician. ec2 14:02 Patient did not have IV access during this emergency room visit. ko1 Administered Medications: 13:01 Drug: Acetaminophen PO 1000 mg PO once Route: PO; me1 13:31 Follow up: Response: No adverse reaction ko1 13:01 Drug: MetoCLOPramide PO 10 mg PO once Route: PO; me1 13:31 Follow up: Response: No adverse reaction ko1 Medication: 10:46 VIS not applicable for this client. ko1 Outcome: 13:50 Discharge ordered by . ec2 14:03 Discharged to home ambulatory, with family, 14:03 Condition: stable 14:03 Discharge instructions given to patient, family, Instructed on discharge instructions, follow up and referral plans. Demonstrated understanding of instructions, follow-up care, 14:04 Patient left the ED. Signatures: Stefani Spangler RN RN aa5 Diandra Ro RN RN Jennifer Hill RN RN ko1 Daina Borrego Michelle, RN RN me1 Bowen Steven MD MD ec2
--- NOTE | 2024-07-24 13:51 | EDPHYS ---
Physician Documentation [facility] Name: Bryan Nance Age: 79 yrs Sex: Male : 1945 Arrival Date: 07/24/2024 Time: 10:19 Bed 13 Private MD: ED Physician Bowen Steven HPI: 07/24 11:34 This 79 yrs old Male presents to ER via Ambulatory with complaints of Nose ec2 Bleed. 11:34 Patient arrives today for bleeding of his nares. Patient reports he is having epistaxis ec2 and ongoing for the past week. Patient reports intermittent however progressive since it today. Patient reports no lightheadedness or anemia symptoms. Is on anticoagulation.. Historical: - PMHx: 10:39 Atrial Fib; CHF; Gout; High Cholesterol; Hypercholesterolemia; Hypertension; aa5 Hypertensive disorder; - PSHx: 10:39 Appendectomy; back and knee SX; Cholecystectomy; Coronary artery bypass graft; Heart aa5 ablation; hernia repair; hernia repair x 2; pacemaker; R total knee; - Immunization history:: Adult Immunizations unknown. - Infectious Disease History:: Denies. - Social history:: Smoking status: Patient denies any tobacco usage or history of. ROS: 11:34 Constitutional: as per hpi ec2 Exam: 11:34 Constitutional: GEN: NAD Head: atraumatic Eyes: EOMI Ears: External ears are normal. ec2 Nose: Bleeding from the left nare.CV: regular rate LUNGS: no respiratory distress ABD: non-distended SKIN: no evidence of rashes MSK: no evidence of trauma Vital Signs: 10:40 BP 132 / 76; Pulse 88; Resp 18 S; Temp 97.8(TE); Pulse Ox 99% on R/A; Weight 83.91 kg aa5 (R); Height 5 ft. 5 in. (R); 10:46 BP 123 / 63; Pulse 61; Resp 15; Pulse Ox 97% ; ko1 13:31 BP 123 / 68; Pulse 62; Resp 16; Pulse Ox 99% ; ko1 10:40 Body Mass Index 30.79 (83.91 kg, 165.1 cm) aa5 Procedures: 11:35 Epistaxis treatment: A moderate amount of bleeding noted from Treated using direct ec2 pressure, nasal clamp, posterior packing, Bleeding stopped. MDM: 11:13 Medical Screening Exam initiated ec2 11:34 Data reviewed: vital signs. ED course: Patient arrives today for bleeding from his left ec2 nare. Examination remarkable for bleeding. I attempted to hold compression with minimal alleviation symptoms, subsequently placed a Rhino Rocket with improvement in bleeding. Patient otherwise without any anemia symptoms to warrant obtaining lab work at this time.. 12:55 ED course: On reassessment patient still feels a trickle however does feel improvement ec2 in symptoms. Will continue to monitor.. Administered Medications: 13:01 Drug: Acetaminophen PO 1000 mg PO once Route: PO; me1 13:31 Follow up: Response: No adverse reaction ko1 13:01 Drug: MetoCLOPramide PO 10 mg PO once Route: PO; me1 13:31 Follow up: Response: No adverse reaction ko1 Disposition Summary: 07/24/24 13:50 Discharge Ordered Condition: Stable ec2 Diagnosis - Epistaxis ec2 Followup: ec2 - With: Private Physician - When: - Reason: Re-evaluation by your physician Followup: ec2 - With: Whit Amin MD - When: - Reason: Recheck today's complaints Discharge Instructions: - Discharge Summary Sheet ec2 - Nosebleed, Adult, [id number] ec2 Forms: - Medication Reconciliation Form ec2 - Antibiotic Education ec2 - Prescription Opioid Use ec2 - Patient Portal Instructions ec2 - Leadership Thank You Letter ec2 Signatures: Stefani Spangler, RN RN aa5 Alma Flores RN RN me1 Bowen Steven MD MD ec2 Jennifer Hill RN ko1
[2024-07-24 14:10] VITALS: TEMP 97.8
[2024-07-24 14:13] VITALS: BP 123/68; O2SAT 99
== END 2024-07-24 14:04 | disposition home or self-care (01) ==
LOC: ER 10:19
DX: R04.0 Epistaxis (principal); Z95.1 Presence of aortocoronary bypass graft; Z95.0 Presence of cardiac pacemaker
CPT/HCPCS: 30901; 99284

== ENCOUNTER 2024-07-25 00:23 | Emergency (ER) | payer OTHER ==
[2024-07-25 01:22] LABS: Absolute Eosinophils 0.1 K/uL (0-0.5); Absolute Lymphocytes (CBC) 1.5 K/uL (0.7-4.9); Absolute Monocytes 0.4 K/uL (0.1-1.3); Absolute Neutrophil 3.9 K/uL (1.8-8.0); Basophils % 0.5 % (0-1.3); Eosinophils % 1.3 % (0-4.4); Hemoglobin 14.7 g/dL (13.6-17.9); MCH 31.9 pg (27.0-35.0); MCHC 33.4 g/dL (32.0-36.0); MCV 95.5 fL (80-100); MPV 7.6 fL (7.6-11.3); Monocytes % 6.5 % (3.3-12.3); Neutrophils % 66.7 % (41.7-73.7); Nucleated Red Blood Cells % 0.1 % (0-0); Platelets 226 thou/uL (152-406); Red Cell Distribution Width 14.5 % (12.1-15.2)
[2024-07-25 01:38] LABS: PT Prothrombin Time 16.1 SECONDS (9.4-12.5); Protime INR 1.45
[2024-07-25 01:55] LABS: Albumin 3.1 g/dL (3.4-5.0); Albumin/Globulin Ratio 0.7 (1.1-1.8); Anion Gap 6.4 mEq/L (5.0-15.0); Bilirubin Total 0.8 mg/dL (0.2-1.0); Globulin 4.5 g/dL (2.3-3.5); Potassium 3.4 mEq/L (3.5-5.1); Protein, Total 7.6 g/dL (6.4-8.2)
--- NOTE | 2024-07-25 02:44 | ER ---
Nurse's Notes [facility] Name: Bryan Nance Age: 79 yrs Sex: Male : 1945 Arrival Date: 07/25/2024 Time: 00:23 Bed 20 Private MD: Diagnosis: Epistaxis;half-way (current) use of anticoagulants-hold aspirin and eliquis x 3 days;Essential (primary) hypertension Presentation: 07/25 01:19 Chief complaint: Patient states: came in earlier for a nose bleed and was discharged al5 with rhino rockets in bilateral nares and to see ENT. patient states it is still continuously bleeding even with rhino rockets in. patient is on eliquis. Coronavirus screen: At this time, the client does not indicate any symptoms associated with coronavirus-19. Ebola Screen: No symptoms or risks identified at this time. Initial Sepsis Screen: Does the patient meet any 2 criteria? No. Patient's initial sepsis screen is negative. Does the patient have a suspected source of infection? No. Patient's initial sepsis screen is negative. Risk Assessment: Do you want to hurt yourself or someone else? Patient reports no desire to harm self or others. Onset of symptoms was July 24, 2024. 01:19 Acuity: CRICKET 3 al5 01:19 Method Of Arrival: Ambulatory al5 Historical: - Allergies: 01:17 No Known Allergies; al5 - Home Meds: 01:17 allopurinol 300 mg Oral tab 1 tab once daily [Active]; apixaban 5 mg Oral tab 1 tab 2 al5 times per day [Active]; aspirin 81 mg Oral TbEC 1 tab once daily [Active]; atorvastatin 80 mg Oral tab 1 tab once daily [Active]; cholecalciferol (vitamin D3)-vitamin K2 Oral daily [Active]; Eliquis 5 mg Oral tab 1 tab 2 times per day [Active]; Farxiga 5 mg Oral tab 1 tab once daily [Active]; furosemide 20 mg Oral tab 1 tab once daily [Active]; Lasix 40 mg Oral tab 1 tab 2 times per day [Active]; lisinopril 10 mg Oral tab 1 tab once daily [Active]; metformin 500 mg Oral Tb24 1 tab once daily [Active]; metoprolol succinate 100 mg Oral Tb24 1 tab twice a day [Active]; metoprolol succinate 100 mg Oral CSpX 1 cap once daily [Active]; potassium chloride 20 mEq Oral TbER 1 tab 2 times per day [Active]; simvastatin 10 mg Oral tab 1 tab once daily [Active]; - PMHx: 01:17 Atrial Fib; CHF; Gout; High Cholesterol; Hypercholesterolemia; Hypertension; al5 Hypertensive disorder; - PSHx: 01:17 Appendectomy; back and knee SX; Cholecystectomy; Coronary artery bypass graft; Heart al5 ablation; hernia repair; hernia repair x 2; pacemaker; R total knee; - Immunization history:: Adult Immunizations up to date. - Infectious Disease History:: Denies. - Social history:: Smoking status: Patient denies any tobacco usage or history of. Screenin:19 [facility] ED Fall Risk Assessment (Adult) History of falling in the last 3 months, al5 including since admission No falls in past 3 months (0 pts) Confusion or Disorientation No (0 pts) Intoxicated or Sedated No (0 pts) Impaired Gait No (0 pts) Mobility Assist Device Used No (0 pt) Altered Elimination No (0 pt) Score/Fall Risk Level 0 - 2 = Low Risk Oriented to surroundings, Maintained a safe environment, Hourly rounding (assess needs \T\ fall precautionary measures) done. Abuse screen: Denies threats or abuse. Denies injuries from another. Nutritional screening: No deficits noted. Tuberculosis screening: No symptoms or risk factors identified. Assessment: 01:15 General: Appears in no apparent distress. Behavior is calm, cooperative. Pain: Denies al5 pain. Pain: Complains of pain in head Pain currently is 4 out of 10 on a pain scale. Neuro: Level of Consciousness is awake, alert, obeys commands, Oriented to person, place, time, situation. Cardiovascular: Capillary refill < 3 seconds Patient's skin is warm and dry. Respiratory: Airway is patent Respiratory effort is even, unlabored, Respiratory pattern is regular, symmetrical. GI: No signs and/or symptoms were reported involving the gastrointestinal system. : No signs and/or symptoms were reported regarding the genitourinary system. EENT: Nares with bleeding noted bilaterally has rhino rockets in from previous visit this morning.. Derm: Skin is intact, is healthy with good turgor, Skin is pink, warm \T\ dry. normal. Musculoskeletal: No signs and/or symptoms reported regarding the musculoskeletal system. 02:59 Reassessment: Patient appears in no apparent distress at this time. No changes from al5 previously documented assessment. Patient and/or family updated on plan of care and expected duration. Pain level reassessed. Patient is alert, oriented x 3, equal unlabored respirations, skin warm/dry/pink. bleeding decreased, patient discharged to home, referral to ENT specialist. Vital Signs: 01:00 BP 146 / 76; Pulse 85; Resp 16; Pulse Ox 98% on R/A; al5 01:19 BP 146 / 76; Pulse 60; Resp 16; Temp 98.3; Pulse Ox 96% ; Weight 83.46 kg; Height 5 ft. al5 5 in. ; 01:30 BP 149 / 77; Pulse 60; Resp 16; Pulse Ox 96% on R/A; al5 02:00 BP 142 / 75; Pulse 59; Resp 16; Pulse Ox 96% on R/A; al5 02:30 BP 133 / 76; Pulse 59; Resp 16; Pulse Ox 97% on R/A; al5 02:45 BP 129 / 70; Pulse 63; Resp 16; Pulse Ox 97% on R/A; al5 01:19 Body Mass Index 30.62 (83.46 kg, 165.1 cm) al5 ED Course: 00:25 Patient arrived in ED. jj6 00:43 Carlos A Prather MD is Attending Physician. leslie 01:15 Kellee Ely, JYOTI is Primary Nurse. al5 01:16 Inserted saline lock: 20 gauge in right forearm, using aseptic technique. Blood af3 collected. Flushed with 10 mL NS. 01:17 PT-INR Sent. af3 01:17 CMP Sent. af3 01:17 CBC with Diff Sent. af3 01:19 No provider procedures requiring assistance completed. al5 01:19 Patient has correct armband on for positive identification. Bed in low position. Call al5 light in reach. Side rails up X2. Provided Education on: plan of care. 01:22 Triage completed. al5 01:22 Arm band placed on Patient placed in the treatment room, on a stretcher. al5 02:43 Whit Amin MD is Referral Physician. leslie 03:01 IV discontinued, intact, bleeding controlled, No redness/swelling at site. Pressure al5 dressing applied. Administered Medications: No medications were administered Medication: :19 VIS not applicable for this client. al5 Outcome: 02:43 Discharge ordered by . leslie 03:01 Discharged to home ambulatory, with significant other, derek 03:01 Condition: good 03:01 Discharge instructions given to patient, significant other, Instructed on discharge instructions, follow up and referral plans. medication usage, Demonstrated understanding of instructions, follow-up care, medications, Prescriptions given X 1, 03:01 Patient left the ED. al5 Signatures: Carlos A Prather MD MD cha Jeffries, Jennifer jj6 Kellee Ely, RN RN alLuna Kramer
--- NOTE | 2024-07-25 02:44 | EDPHYS ---
Physician Documentation [facility] Name: Bryan Nance Age: 79 yrs Sex: Male : 1945 Arrival Date: 07/25/2024 Time: 00:23 Bed 20 Private MD: ED Physician Carlos A Prather HPI: 07/25 01:45 This 79 yrs old Male presents to ER via Ambulatory with complaints of Nose leslie Bleed, PT ON ELIQUIST. 01:45 The patient presents with a nose bleed, occurred from an unknown cause, spontaneously. leslie Onset: The symptoms/episode began/occurred yesterday. Modifying factors: The symptoms are alleviated by nothing. the symptoms are aggravated by nothing. Severity of symptoms: At their worst the symptoms were moderate in the emergency department the symptoms have improved moderately. The patient has experienced similar episodes in the past, left nares was packed yessterday morning. Historical: - Allergies: 01:17 No Known Allergies; al5 - Home Meds: 01:17 allopurinol 300 mg Oral tab 1 tab once daily [Active]; apixaban 5 mg Oral tab 1 tab 2 al5 times per day [Active]; aspirin 81 mg Oral TbEC 1 tab once daily [Active]; atorvastatin 80 mg Oral tab 1 tab once daily [Active]; cholecalciferol (vitamin D3)-vitamin K2 Oral daily [Active]; Eliquis 5 mg Oral tab 1 tab 2 times per day [Active]; Farxiga 5 mg Oral tab 1 tab once daily [Active]; furosemide 20 mg Oral tab 1 tab once daily [Active]; Lasix 40 mg Oral tab 1 tab 2 times per day [Active]; lisinopril 10 mg Oral tab 1 tab once daily [Active]; metformin 500 mg Oral Tb24 1 tab once daily [Active]; metoprolol succinate 100 mg Oral Tb24 1 tab twice a day [Active]; metoprolol succinate 100 mg Oral CSpX 1 cap once daily [Active]; potassium chloride 20 mEq Oral TbER 1 tab 2 times per day [Active]; simvastatin 10 mg Oral tab 1 tab once daily [Active]; - PMHx: 01:17 Atrial Fib; CHF; Gout; High Cholesterol; Hypercholesterolemia; Hypertension; al5 Hypertensive disorder; - PSHx: 01:17 Appendectomy; back and knee SX; Cholecystectomy; Coronary artery bypass graft; Heart al5 ablation; hernia repair; hernia repair x 2; pacemaker; R total knee; - Immunization history:: Adult Immunizations up to date. - Infectious Disease History:: Denies. - Social history:: Smoking status: Patient denies any tobacco usage or history of. ROS: 0149 Constitutional: Negative for fever, chills, and weight loss, Eyes: Negative for injury, leslie pain, redness, and discharge, Neck: Negative for injury, pain, and swelling, Cardiovascular: Negative for chest pain, palpitations, and edema, Respiratory: Negative for shortness of breath, cough, wheezing, and pleuritic chest pain, Abdomen/GI: Negative for abdominal pain, nausea, vomiting, diarrhea, and constipation, Back: Negative for injury and pain, : Negative for injury, bleeding, discharge, and swelling, MS/Extremity: Negative for injury and deformity, Skin: Negative for injury, rash, and discoloration, Neuro: Negative for headache, weakness, numbness, tingling, and seizure, Psych: Negative for depression, anxiety, suicide ideation, homicidal ideation, and hallucinations, Allergy/Immunology: Negative for hives, rash, and allergies, Endocrine: Negative for neck swelling, polydipsia, polyuria, polyphagia, and marked weight changes, Hematologic/Lymphatic: Negative for swollen nodes, abnormal bleeding, and unusual bruising, ENT: Positive for nose bleed, Exam: Constitutional: This is a well developed, well nourished patient who is awake, alert, leslie and in no acute distress. Head/Face: Normocephalic, atraumatic. Eyes: Pupils equal round and reactive to light, extra-ocular motions intact. Lids and lashes normal. Conjunctiva and sclera are non-icteric and not injected. Cornea within normal limits. Periorbital areas with no swelling, redness, or edema. Neck: Trachea midline, no thyromegaly or masses palpated, and no cervical lymphadenopathy. Supple, full range of motion without nuchal rigidity, or vertebral point tenderness. No Meningismus. Chest/axilla: Normal chest wall appearance and motion. Nontender with no deformity. No lesions are appreciated. Cardiovascular: Regular rate and rhythm with a normal S1 and S2. No gallops, murmurs, or rubs. Normal PMI, no JVD. No pulse deficits. Respiratory: Lungs have equal breath sounds bilaterally, clear to auscultation and percussion. No rales, rhonchi or wheezes noted. No increased work of breathing, no retractions or nasal flaring. Abdomen/GI: Soft, non-tender, with normal bowel sounds. No distension or tympany. No guarding or rebound. No evidence of tenderness throughout. Back: No spinal tenderness. No costovertebral tenderness. Full range of motion. Male : Normal genitalia with no discharge or lesions. Skin: Warm, dry with normal turgor. Normal color with no rashes, no lesions, and no evidence of cellulitis. MS/ Extremity: Pulses equal, no cyanosis. Neurovascular intact. Full, normal range of motion. Neuro: Awake and alert, GCS 15, oriented to person, place, time, and situation. Cranial nerves II-XII grossly intact. Motor strength 5/5 in all extremities. Sensory grossly intact. Cerebellar exam normal. Normal gait. Psych: Awake, alert, with orientation to person, place and time. Behavior, mood, and affect are within normal limits. 01:49 ENT: Nose: Nasal mucosa: left nare packed 14 hrs ago, Vital Signs: 01:00 BP 146 / 76; Pulse 85; Resp 16; Pulse Ox 98% on R/A; al5 01:19 BP 146 / 76; Pulse 60; Resp 16; Temp 98.3; Pulse Ox 96% ; Weight 83.46 kg; Height 5 ft. al5 5 in. ; 01:30 BP 149 / 77; Pulse 60; Resp 16; Pulse Ox 96% on R/A; al5 02:00 BP 142 / 75; Pulse 59; Resp 16; Pulse Ox 96% on R/A; al5 02:30 BP 133 / 76; Pulse 59; Resp 16; Pulse Ox 97% on R/A; al5 02:45 BP 129 / 70; Pulse 63; Resp 16; Pulse Ox 97% on R/A; al5 01:19 Body Mass Index 30.62 (83.46 kg, 165.1 cm) al5 MDM: 00:44 Medical Screening Exam initiated leslie 01:51 Differential diagnosis: spontaneous epistaxis. Data reviewed: vital signs, nurses [facility] notes, lab test result(s). Consideration of Admission/Observation Escalation of care including admission/observation considered. I considered the following discharge prescriptions or medication management in the emergency department Medications were administered in the Emergency Department. See MAR. Independent interpretation of the following test(s) in the Emergency Department EKG: See my EKG interpretation above X-Ray: My interpretation is cxr neg. Test considered but Not performed: Ultrasound no 2 d echo. Historians other than the Patient: Parent: mom well informed. Care significantly affected by the following chronic conditions: Hypertension, Congestive Heart Failure, Obesity, on aspirin, eliquis. 02:43 ED course: REPOSITIONED RHINO ROCKET, NO BLEEDING , DW PATIENT CONTINUE BP MEDS , HOLD leslie ASPIRIN AND ELIQUIS X 3 DAYS. 07/25 00:44 Order name: CBC with Diff; Complete Time: 01:39 leslie 07/25 00:44 Order name: CMP; Complete Time: 02:04 leslie 07/25 00:44 Order name: PT-INR; Complete Time: 01:39 leslie 07/25 00:44 Order name: IV Saline Lock - Large Bore; Complete Time: 01:15 leslie Administered Medications: No medications were administered Disposition Summary: 07/25/24 02:43 Discharge Ordered Notes: Location: Home leslie Problem: new leslie Symptoms: have improved leslie Condition: Stable leslie Diagnosis - Epistaxis leslie - [employer] (current) use of anticoagulants - hold aspirin and eliquis x 3 days leslie - Essential (primary) hypertension leslie Followup: leslie - With: Private Physician - When: 2 - 3 days - Reason: Recheck today's complaints, Continuance of care, Re-evaluation by your physician Followup: leslie - With: Whit Amin MD - When: 2 - 3 days - Reason: Recheck today's complaints, Re-evaluation by your physician Discharge Instructions: - Discharge Summary Sheet leslie - Nosebleed, Adult leslie - Hypertension, Adult leslie - Cool Mist Vaporizer leslie - Hypertension, Adult, [id number] leslie - How to Take Your Blood Pressure, [id number] leslie - Nosebleed, Adult, [id number] leslie - Atrial Fibrillation, [id number] leslie - Managing Your Hypertension leslie Forms: - Medication Reconciliation Form leslie - Antibiotic Education leslie - Prescription Opioid Use leslie - Patient Portal Instructions leslie - Leadership Thank You Letter leslie Prescriptions: - Cephalexin 500 mg Oral capsule - take 1 capsule ORAL route every 6 hours for 7 days; 28 capsule; Refills: 0, leslie Product Selection Permitted Signatures: Dispatcher [employer] Carlos A Rodriguez MD MD cha Langhorst, Amanda RN RN al5
[2024-07-25 03:21] VITALS: TEMP 98.3
[2024-07-25 03:29] VITALS: O2SAT 97
[2024-07-25 03:30] VITALS: BP 129/70
== END 2024-07-25 03:01 | disposition home or self-care (01) ==
LOC: ER 00:23
DX: R04.0 Epistaxis (principal); Z79.01 Long term (current) use of anticoagulants; I10 Essential (primary) hypertension; Z95.1 Presence of aortocoronary bypass graft; Z95.0 Presence of cardiac pacemaker
CPT/HCPCS: 36415; 80053; 85025; 85610; 99284